=== PATIENT | male | born 1990 | race African-American/Black ===

== ENCOUNTER 2020-09-21 07:28 | Emergency (ER) | payer SELFPAY ==
[2020-09-21 07:58] VITALS: BP 149/64; PULSE 60; RESP 14; TEMP 36.9; O2SAT 100
--- NOTE | 2020-09-21 08:19 | ED.GENADULT ---
HPI - General Adult General Chief complaint: Dental/Oral Stated complaint: dental pain Time Seen by Provider: 09/21/20 08:00 Source: patient History of Present Illness HPI narrative: Patient is a a 30 y/o male complaining of right lower molar dental pain starting 3 days ago. He describes his pain as aching and rates it as 5/10. He took Tylenol, which helps with his pain. He has fever or chills. Related Data Allergies Allergy/AdvReac Type Severity Reaction Status Date / Time aspirin Allergy Unknown Verified 09/21/20 08:00 Review of Systems Constitutional: Constitutional: Denies chills, Denies fever(s), Denies headache(s) and Denies weakness Eyes: Eyes: Denies blurry vision ENT: Reports dental pain, Denies headache(s) and Denies neck pain Cardiovascular: Cardiovascular: Denies chest pain and Denies dyspnea Respiratory: Respiratory: Denies cough and Denies dyspnea Gastrointestinal: Gastrointestinal: Denies abdominal pain, Denies diarrhea, Denies nausea and Denies vomiting Genitourinary: Genitourinary: Denies hematuria and Denies dysuria Musculoskeletal: Musculoskeletal: Denies back pain and Denies neck pain Neurologic: Denies headache(s) and Denies weakness Exam Const: General: no acute distress and well developed Orientation/consciousness: oriented to person, oriented to place, oriented to time and patient oriented x3 HENMT: Head: normocephalic General nose exam: Normal external nose present Teeth and gingiva: other (tenderness right lower molar) Eyes: General: appearance normal, both eyes and all related structures Conjunctivae: conjunctivae normal Neck: Neck: normal visual inspection and full ROM Chest: Chest palpation & inspection: normal inspection of the chest and no tenderness Resp: Effort & Inspection: normal respiratory effort Neuro: General: oriented to person, oriented to place, oriented to time and patient oriented x3 Cognition (Neuro): normal cognition Extrem: General: normal to inspection, full ROM and no pedal edema Psych: Appearance: grossly normal Mental Status: mental status grossly normal Affect: normal affect Course Vital Signs Vital signs: Vital Signs Temperature 36.9 C 09/21/20 07:58 Pulse Rate 60 09/21/20 07:58 Respiratory Rate 14 09/21/20 07:58 Blood Pressure 149/64 H 09/21/20 07:58 Pulse Oximetry 100 09/21/20 07:58 Temperature 36.9 C 09/21/20 07:58 Pulse Rate 60 09/21/20 07:58 Respiratory Rate 14 09/21/20 07:58 Blood Pressure 149/64 H 09/21/20 07:58 Pulse Oximetry 100 09/21/20 07:58 Medical Decision Making Vital Signs Vital Signs: Vital Signs Temperature 36.9 C 09/21/20 07:58 Pulse Rate 60 09/21/20 07:58 Respiratory Rate 14 09/21/20 07:58 Blood Pressure 149/64 H 09/21/20 07:58 Pulse Oximetry 100 09/21/20 07:58 Temperature 36.9 C 09/21/20 07:58 Pulse Rate 60 09/21/20 07:58 Respiratory Rate 14 09/21/20 07:58 Blood Pressure 149/64 H 09/21/20 07:58 Pulse Oximetry 100 09/21/20 07:58 Discharge Plan Discharge Clinical Impression: Toothache Patient Disposition: Home, Self-Care Condition: Stable Instructions: Antibiotic Form, Toothache (ED) Prescriptions: New penicillin V potassium 500 mg tablet 500 mg PO TID Qty: 30 RF: 0 Follow-up/Referrals: PHYSICIAN,AUTOMOTIVE SALES SPECIALIST [Primary Care Provider] - Stand Alone Forms: Work/School Release IP
[2020-09-21 08:30] VITALS: BP 124/70; PULSE 64; RESP 12; O2SAT 99
== END 2020-09-21 08:30 | disposition home or self-care (01) ==
PROVIDERS: Emergency Provider Emergency Medicine
DX: K08.89 Other specified disorders of teeth and supporting structures (principal)
CPT/HCPCS: 99283

== ENCOUNTER 2025-01-04 15:52 | Emergency (ER) | payer SELFPAY ==
[2025-01-04 15:53] VITALS: BP 147/79; PULSE 87; RESP 14; TEMP 36.4; O2SAT 99
--- NOTE | 2025-01-04 17:36 | ED.ABDPAIN ---
HPI - Abdominal Pain General Chief Complaint: Abdominal Pain Stated Complaint: hernia Time Seen by Provider: 01/04/25 17:34 Source: patient and family Mode of arrival: ambulatory Limitations: no limitations History of Present Illness HPI narrative: 34 YEARS OLD MALE CAME TO THE ED COMPLAINING OF BARIUM PEDICLE PAIN, AND INTERMITTENT BULGING AT THE LEFT LOWER ABDOMEN FOR THE LAST 2-3 MONTHS. HE DENIES ANY FEVER, CHILLS, NAUSEA, VOMITING, DIARRHEA, CONSTIPATION OR HISTORY OF ABDOMINAL SURGERY. Related Data Allergies Allergy/AdvReac Type Severity Reaction Status Date / Time aspirin Allergy Unknown Verified 01/04/25 17:48 Review of Systems Review of Systems: All systems reviewed & are unremarkable except as noted in HPI and below Exam Narrative: GENERAL APPEARANCE: WELL-DEVELOPED, WELL-NOURISHED SKIN: NORMAL COLOR CHEST AND RESPIRATORY: AIRWAY PATENT, NO RESPIRATORY DISTRESS, NO ACCESSORY MUSCLE USE HEART: REGULAR RATE/RHYTHM ABDOMEN: SOFT, NONTENDER, NO ORGANOMEGALY, QUIET BOWEL SOUNDS VASCULAR: NORMAL PERIPHERAL PULSES, NORMAL CAPILLARY REFILL. MUSCULOSKELETAL: NORMAL RANGE OF MOTION, NONTENDER BACK NEUROLOGIC: ALERT AND ORIENTED ?3, CLIENT SERVICES DIRECTOR IS NORMAL TESTED, NO GROSS MOTOR DEFICIT Course Vital Signs Vital signs: Vital Signs Temperature 36.4 C 01/04/25 15:53 Pulse Rate 87 01/04/25 15:53 Respiratory Rate 14 01/04/25 15:53 Blood Pressure 147/79 H 01/04/25 15:53 Pulse Oximetry 99 01/04/25 15:53 Temperature 36.4 C 01/04/25 15:53 Pulse Rate 87 01/04/25 15:53 Respiratory Rate 14 01/04/25 15:53 Blood Pressure 147/79 H 01/04/25 15:53 Pulse Oximetry 99 01/04/25 15:53 MDM - Abdominal Pain [facility] Narrative Medical decision making narrative: PATIENT PRESENTS WITH PERIUMBILICAL PAIN VITAL SIGNS ARE STABLE PHYSICAL EXAMINATION IS UNREMARKABLE DIFFERENTIAL DIAGNOSIS INCLUDE UMBILICAL HERNIA, INGUINAL HERNIA, URINARY TRACT INFECTION, DIVERTICULITIS, COLITIS, APPENDICITIS, CHOLECYSTITIS BLOOD WORKUP TODAY INCLUDES CBC, CMP, LIPASE SHOWED NO SIGNIFICANT ABNORMALITY URINALYSIS SHOWED FINDING CONSISTENT WITH INFECTION CT ABDOMEN AND PELVIS WITH IV CONTRAST SHOWED NO ACUTE ABNORMALITIES. DIAGNOSIS URINARY TRACT INFECTION, DISCHARGED ON CIPRO. DISCHARGE THE PT WAS DISCHARGED TO HOME.THE PT,S CONDITION UPON DISCHARGE WAS FAIR,EDUCATION WAS PROVIDED TO THE PT IN REFERENCE TO THE FINAL IMPRESSION,DISCHARGE STUDY RESULTS,TREATMENT,PROGNOSIS AND NEED FOR FOLLOW UP . Differential Diagnosis Differential diagnosis: Likely other ( ABOVE) Lab Data 01/04/25 17:58 01/04/25 18:13 Labs: Lab Results 01/04/25 01/04/25 01/04/25 Range/Units 17:58 18:13 18:31 WBC 6.6 (4.5-10.0) K/mm3 RBC 4.96 (4.6-6.20) M/mm3 Hgb 16.0 (14.0-18.0) g/dL Hct 46.5 (42.0-52.0) % MCV 93.8 (80-100) fl MCH 32.3 (26-34) pg MCHC 34.4 (32-36) g/dl RDW 12.4 (11.5-14.5) % Plt Count 283 (150-375) k/mm3 MPV 8.9 (7.4-10.4) fl Immature Gran % (Auto) 0.2 (0-0.5) % Neut % (Auto) 38.5 L (45.5-73.1) % Lymph % (Auto) 49.7 H (18.3-44.2) % Meriwether % (Auto) 10.2 H (2.6-8.5) % Eos % (Auto) 0.6 (0-4.4) % Baso % (Auto) 0.8 (0.2-1.2) % Lymph # (Auto) 3.28 H (0.9-3.2) K/mm3 Meriwether # (Auto) 0.7 H (0.1-0.6) K/mm3 Eos # (Auto) 0.0 (0-0.3) K/mm3 Baso # (Auto) 0.1 (0.0-0.1) K/mm3 Abs Immat Gran (auto) 0.01 (0.00-0.031) K/mm3 Absolute Neuts (auto) 2.6 (1.3-6.7) K/mm3 Absolute Nucleated RBC 0.000 (0.0-0.012) K/mm3 Nucleated RBC % 0.0 (0.0-0.2) % Sodium 140 (137-145) mmol/L Potassium 4.2 (3.4-5.0) mmol/L Chloride 104 (98-107) mmol/L Carbon Dioxide 30 (22-30) mmol/L Anion Gap 6 (4-12) mmol/L BUN 11 (9-20) mg/dL Creatinine 0.95 1.10 (0.7-1.3) mg/dL Estim Creat Clear Calc 94 82 ml/min Estimated GFR > 60 > 60 (59 - ) Glucose 70 (65-110) mg/dL Calcium 9.0 (8.4-10.2) mg/dL Total Bilirubin 1.1 (0.2-1.3) mg/dL AST 25 (17-59) U/L ALT 17 (6-50) U/L Alkaline Phosphatase 70 (38-126) U/L Total Protein 7.0 (6.3-8.2) g/dL Albumin 4.4 (3.5-5.1) g/dL Lipase 127 (23-300) U/L Urine Color Yellow (Yellow) Urine Appearance Clear (Clear) Urine pH 6.5 (5.0-9.0) Ur Specific Tea 1.027 (1.001-1.035) Urine Protein Trace (Negative) mg/dL Urine Glucose (UA) Negative (Negative) mg/dL Urine Ketones Trace H (Negative) mg/dL Ur Blood (Man) Negative (Negative) Urine Nitrate Negative (Negative) Urine Bilirubin Negative (Negative) Urine Urobilinogen 1.0 (<2.0) mg/dL Leukocyte Esterase Rfl 1+ H (Negative) RERE/UL Urine RBC 0-2 (0-2) /hpf Urine WBC 21-50 H (0-3) /hpf Ur Squamous Epith Cells None seen (Few) /hpf Urine Bacteria None seen /hpf Urine Casts 0-2 Imaging Data Radiologist's impression: ITS Impressions Abdomen/Pelvis CT 01/04/25 18:57 IMPRESSION: 1. No evidence of appendicitis, diverticulitis or intestinal obstruction. Discharge Plan Discharge Clinical Impression: Urinary tract infection Patient Disposition: Home, Self-Care Condition: Stable Instructions: Antibiotic Form, Urinary Tract Infection in Men (DC) Additional Instructions: RETURN IF SYMPTOMS ARE WORSENING , CALL YOUR FAMILY PHYSICIAN FOR APPOINTMENT, TAKE TYLENOL NEEDED FOR ACHES AND PAIN, CONTINUE HOME MEDICATIONS. Patient Language: German Prescriptions: New ciprofloxacin HCl [Cipro] 500 mg tablet 500 mg PO Q12H Qty: 14 0RF No Action penicillin V potassium 500 mg tablet 500 mg PO TID Qty: 30 0RF Follow-up/Referrals: PHYSICIAN,SPECIAL EDUCATION PARA PROFESSIONAL [Primary Care Provider] - Galo Jang MD [Physician] - 01/08/25
[2025-01-04 18:10] LABS: Basophils Absolute Auto 0.1 K/mm3 (0.0-0.1); Basophils Percent Auto 0.8 % (0.2-1.2); Eosinophils Percent Auto 0.6 % (0-4.4); Hematocrit 46.5 % (42.0-52.0); Immature Granulocyte Absolute 0.01 K/mm3 (0.00-0.031); Immature Granulocyte Percent A 0.2 % (0-0.5); Lymphocytes Absolute Auto 3.28 K/mm3 (0.9-3.2); Lymphocytes Percent Auto 49.7 % (18.3-44.2); Mean Corpuscular HGB Conc 34.4 g/dl (32-36); Mean Corpuscular Hemoglobin 32.3 pg (26-34); Mean Corpuscular Volume 93.8 fl (80-100); Mean Platelet Volume 8.9 fl (7.4-10.4); Monocytes Absolute Auto 0.7 K/mm3 (0.1-0.6); Monocytes Percent Auto 10.2 % (2.6-8.5); Neutrophils Absolute Auto 2.6 K/mm3 (1.3-6.7); Neutrophils Percent Auto 38.5 % (45.5-73.1); Platelet Count Result 283 k/mm3 (150-375); Red Blood Count 4.96 M/mm3 (4.6-6.20); Red Cell Distribution Width 12.4 % (11.5-14.5); White Blood Count 6.6 K/mm3 (4.5-10.0)
[2025-01-04 18:22] LABS: Alanine Aminotransferase 17 U/L (6-50); Albumin Level 4.4 g/dL (3.5-5.1); Alkaline Phosphatase 70 U/L (38-126); Anion Gap 6 mmol/L (4-12); Aspartate Amino Transferase 25 U/L (17-59); Bilirubin,Total 1.1 mg/dL (0.2-1.3); Blood Urea Nitrogen 11 mg/dL (9-20); Carbon Dioxide 30 mmol/L (22-30); Chloride 104 mmol/L (98-107); Estimated CRCL calculation 94 ml/min; Estimated Glomerular Filt Rate > 60; Glucose 70 mg/dL (65-110); Lipase 127 U/L (23-300); Potassium 4.2 mmol/L (3.4-5.0); Sodium 140 mmol/L (137-145)
[2025-01-04 18:25] LABS: Estimated CRCL calculation 82 ml/min; Estimated Glomerular Filt Rate > 60
[2025-01-04 18:43] LABS: Add Urine Microscopic? YES; Appearance Urine Clear (Clear); Bacteria Urine None Seen /hpf; Bilirubin Urine Negative (Negative); Blood Urine Negative (Negative); Color Urine Yellow (Yellow); Glucose Urine UA Negative (Negative); Ketones Urine Trace mg/dL (Negative); Leukocyte Esterase Ur 1+ LEU/UL (Negative); Nitrate Urine Negative (Negative); Non Pathogenic Casts 0-2; Protein Urine Trace mg/dL (Negative); RBC Urine 0-2 /hpf (0-2); Specific Grav Ur 1.027 (1.001-1.035); Squamous Epithelial Cell Urine None Seen /hpf (Few); WBC Urine 21-50 /hpf (0-3); pH Urine 6.5 (5.0-9.0)
[2025-01-04 20:26] VITALS: BP 132/74; PULSE 84; RESP 15; TEMP 36.6; O2SAT 100
== END 2025-01-04 20:27 | disposition home or self-care (01) ==
PROVIDERS: Emergency Provider Emergency Medicine
DX: N39.0 Urinary tract infection, site not specified (principal)
CPT/HCPCS: 36415; 74177; 80053; 81001; 83690; 85025; 87086; 99284; Q9967

== ENCOUNTER 2025-04-11 15:52 | Emergency (ER) | payer SELFPAY ==
--- NOTE | ~2025-04-11 | CT_ITS ---
EXAMINATION: CT abdomen pelvis w con DATE: 04/11/2025 18:35 INDICATION: LLQ pain TECHNIQUE: Computed tomography (CT) of the abdomen and pelvis was performed with 100 mL Omnipaque-350 intravenous contrast. Automated exposure control and iterative reconstruction technique were employe d. The dose-length product was 283.20 mGy-cm. COMPARISON: 01/04/2025. FINDINGS: Lower thorax: Unremarkable Liver: Normal. Biliary/Gallbladder: Gallbladder is normal. No bile duct dilation. Pancreas: No mass or duct dilation. Spleen: Normal. Adrenals:No mass. Kidneys: No suspicious mass, obstructing stone, or hydronephrosis. GI tract: No small or large bowel dilation. Normal appendix. Mesentery/Peritoneum: No ascites, mass, or free air. Retroperitoneum: No mass. Pelvis: Pelvic organs are within normal limits. Soft Tissues: Small left femoral hernia with mild soft tissue thickening/stranding. Bones: No acute osseous finding. IMPRESSION: Mild soft tissue thickening/stranding associated with a small left inguinal hernia, correlate for rigo n/tenderness. Reviewed, dictated and finalized at location K. IMPRESSION: Mild soft tissue thickening/stranding associated with a small left inguinal her karen, correlate for pain/tenderness.
[2025-04-11 15:55] VITALS: BP 135/80; PULSE 96; RESP 16; TEMP 36.6; O2SAT 100
--- NOTE | 2025-04-11 16:12 | ED.ABDPAIN ---
HPI - Abdominal Pain General Chief Complaint: Abdominal Pain <Meera Bowen APRN - Last Filed: 04/11/25 16:13> Stated Complaint: abd pain, hernia <Meera Bowen APRN - Last Filed: 04/11/25 16:13> Time Seen by Provider: 04/11/25 15:55 <Meera Bowen APRN - Last Filed: 04/11/25 16:13> Focused HPI: Patient is a 35-year-old male who presents to the ER with left lower abdominal pain around a hernia site. He reports he was diagnosed with a left inguinal hernia in January of 2025. Patient reports over the last couple of days he has experienced increased pain at the site and it is difficult to push in. He reports the pain increases when he coughs or if he standing for long periods of time. Patient endorses a history of anxiety but denies any other relevant medical history. GENERAL: Well-appearing, well-nourished, and in no acute distress. HEAD: Normocephalic, atraumatic. CHEST: Clear to auscultation. ?No respiratory distress. HEART: Regular rate and rhythm.? NEURO: ?Alert and oriented x3. Patient screened in triage and initial orders placed.? ?Additional care and disposition to be based upon?diagnostic testing and treatment. <Meera Bowen APRN - Last Filed: 04/11/25 16:13> History of Present Illness HPI narrative: 35-year-old male presents to the emergency department for a hernia to his left inguinal region for the past couple of months. Patient states over the past few days he has noticed it has become slightly more tender and more difficult to reduce. This is what prompted him to come to the ED. He is also reporting some abdominal pain to the periumbilical region. Endorses nausea, denies vomiting or diarrhea. Denies obstipation or changes to bowels. Denies fever, testicular or scrotal pain. <Maritza Romano PA-C - Last Filed: 04/11/25 20:13> Related Data Allergies/Adverse Reactions: Allergies Allergy/AdvReac Type Severity Reaction Status Date / Time aspirin Allergy Unknown Verified 01/04/25 17:48 <Meera Bowen APRN - Last Filed: 04/11/25 16:13> Review of Systems Review of Systems: All systems reviewed & are unremarkable except as noted in HPI and below <Maritza Romano PA-C - Last Filed: 04/11/25 20:13> Exam Narrative: GENERAL: Well-appearing, well-nourished, and in no acute distress. HEAD: Normocephalic, atraumatic. EYES: EOMI. ENT: Nares clear, no rhinorrhea or epistaxis. Mucous membranes moist. NECK: Supple. CHEST: Clear to auscultation. No respiratory distress. HEART: Regular rate and rhythm. No murmur heard. Normal peripheral pulses. ABDOMEN: Soft, nontender, nondistended, normal active bowel sounds. Left inguinal hernia with no overlying skin changes, soft, easily reduced without significant tenderness EXTREMITIES: Normal range of motion. No edema. SKIN: Warm, dry, no rash. NEURO: No focal deficits. Alert and oriented x3 <Maritza Romano PA-C - Last Filed: 04/11/25 20:13> Course Vital Signs Vital signs: Vital Signs Temperature 97.8 F 04/11/25 15:55 Pulse Rate 96 04/11/25 15:55 Respiratory Rate 16 04/11/25 15:55 Blood Pressure 135/80 04/11/25 15:55 Pulse Oximetry 100 04/11/25 15:55 Oxygen Delivery Room Air 04/11/25 15:55 Temperature 98.0 F 04/11/25 19:28 Pulse Rate 76 04/11/25 19:28 Respiratory Rate 18 04/11/25 19:28 Blood Pressure 134/95 H 04/11/25 19:28 Pulse Oximetry 100 04/11/25 19:28 Oxygen Delivery Room Air 04/11/25 15:55 <Meera Bowen, STUDY MANAGER - Last Filed: 04/11/25 16:13> Vital Signs Temperature 97.8 F 04/11/25 15:55 Pulse Rate 96 04/11/25 15:55 Respiratory Rate 16 04/11/25 15:55 Blood Pressure 135/80 04/11/25 15:55 Pulse Oximetry 100 04/11/25 15:55 Oxygen Delivery Room Air 04/11/25 15:55 Temperature 98.0 F 04/11/25 19:28 Pulse Rate 76 04/11/25 19:28 Respiratory Rate 18 04/11/25 19:28 Blood Pressure 134/95 H 04/11/25 19:28 Pulse Oximetry 100 04/11/25 19:28 Oxygen Delivery Room Air 04/11/25 15:55 <Maritza Romano PA-C - Last Filed: 04/11/25 20:13> MDM - Abdominal Pain MDM Narrative Medical decision making narrative: 35-year-old male presents to the emergency department for a left inguinal hernia that has been present over the past couple months and worsening over the past few days. Patient endorsing some tenderness to the region and increased difficulty reducing hernia. Vitals are stable. Patient is afebrile nontoxic appearing and resting comfortably in exam bed. Exam is notable for a left inguinal hernia with no overlying skin changes, soft and nontender and easily reduced on exam. Lab work shows no leukocytosis or anemia. Chemistries are unremarkable. UA with elevated specific gravity, UTI. Lipase within normal limits. CT abdomen pelvis shows mild soft tissue thickening/straining associated with a small left inguinal hernia. Discussed results with General surgery on-call, Dr. Garrison, who agrees to outpatient follow-up. Patient updated on results and plan of care. Return precautions provided. He is agreeable with the plan verbalized understanding. Discharged in stable condition. <Maritza Romano PA-C - Last Filed: 04/11/25 20:13> Lab Data Result diagrams: 04/11/25 17:51 04/11/25 17:51 <Meera Bowen APRN - Last Filed: 04/11/25 16:13> Labs: Lab Results 04/11/25 04/11/25 Range/Units 17:51 19:50 WBC 6.9 (4.5-10.0) K/mm3 RBC 5.10 (4.6-6.20) M/mm3 Hgb 16.4 (14.0-18.0) g/dL Hct 48.0 (42.0-52.0) % MCV 94.1 (80-100) fl MCH 32.2 (26-34) pg MCHC 34.2 (32-36) g/dl RDW 11.9 (11.5-14.5) % Plt Count 272 (150-375) k/mm3 MPV 8.2 (7.4-10.4) fl Immature Gran % (Auto) 0.1 (0-0.5) % Neut % (Auto) 47.1 (45.5-73.1) % Lymph % (Auto) 42.2 (18.3-44.2) % Lipscomb % (Auto) 9.1 H (2.6-8.5) % Eos % (Auto) 0.6 (0-4.4) % Baso % (Auto) 0.9 (0.2-1.2) % Lymph # (Auto) 2.91 (0.9-3.2) K/mm3 Lipscomb # (Auto) 0.6 (0.1-0.6) K/mm3 Eos # (Auto) 0.0 (0-0.3) K/mm3 Baso # (Auto) 0.1 (0.0-0.1) K/mm3 Abs Immat Gran (auto) 0.01 (0.00-0.031) K/mm3 Absolute Neuts (auto) 3.3 (1.3-6.7) K/mm3 Absolute Nucleated RBC 0.000 (0.0-0.012) K/mm3 Nucleated RBC % 0.0 (0.0-0.2) % Sodium 138 (137-145) mmol/L Potassium 4.6 (3.4-5.0) mmol/L Chloride 105 (98-107) mmol/L Carbon Dioxide 28 (22-30) mmol/L Anion Gap 5 (4-12) mmol/L BUN 10 (9-20) mg/dL Creatinine 1.14 (0.7-1.3) mg/dL Estim Creat Clear Calc 76 ml/min Estimated GFR > 60 (59 - ) Glucose 79 (65-110) mg/dL Calcium 9.5 (8.4-10.2) mg/dL Total Bilirubin 0.7 (0.2-1.3) mg/dL AST 31 (17-59) U/L ALT 21 (6-50) U/L Alkaline Phosphatase 69 (38-126) U/L Total Protein 7.5 (6.3-8.2) g/dL Albumin 4.5 (3.5-5.1) g/dL Lipase 122 (23-300) U/L Urine Color Yellow (Yellow) Urine Appearance Clear (Clear) Urine pH 7.5 (5.0-9.0) Ur Specific Benson > 1.045 H (1.001-1.035) Urine Protein Negative (Negative) mg/dL Urine Glucose (UA) Negative (Negative) mg/dL Urine Ketones Negative (Negative) mg/dL Ur Blood (Man) Negative (Negative) Urine Nitrate Negative (Negative) Urine Bilirubin Negative (Negative) Urine Urobilinogen 1.0 (<2.0) mg/dL Leukocyte Esterase Rfl Negative (Negative) RERE/UL <Meera Bowen, STUDY MANAGER - Last Filed: 04/11/25 16:13> Lab Results 04/11/25 04/11/25 Range/Units 17:51 19:50 WBC 6.9 (4.5-10.0) K/mm3 RBC 5.10 (4.6-6.20) M/mm3 Hgb 16.4 (14.0-18.0) g/dL Hct 48.0 (42.0-52.0) % MCV 94.1 (80-100) fl MCH 32.2 (26-34) pg MCHC 34.2 (32-36) g/dl RDW 11.9 (11.5-14.5) % Plt Count 272 (150-375) k/mm3 MPV 8.2 (7.4-10.4) fl Immature Gran % (Auto) 0.1 (0-0.5) % Neut % (Auto) 47.1 (45.5-73.1) % Lymph % (Auto) 42.2 (18.3-44.2) % Lipscomb % (Auto) 9.1 H (2.6-8.5) % Eos % (Auto) 0.6 (0-4.4) % Baso % (Auto) 0.9 (0.2-1.2) % Lymph # (Auto) 2.91 (0.9-3.2) K/mm3 Lipscomb # (Auto) 0.6 (0.1-0.6) K/mm3 Eos # (Auto) 0.0 (0-0.3) K/mm3 Baso # (Auto) 0.1 (0.0-0.1) K/mm3 Abs Immat Gran (auto) 0.01 (0.00-0.031) K/mm3 Absolute Neuts (auto) 3.3 (1.3-6.7) K/mm3 Absolute Nucleated RBC 0.000 (0.0-0.012) K/mm3 Nucleated RBC % 0.0 (0.0-0.2) % Sodium 138 (137-145) mmol/L Potassium 4.6 (3.4-5.0) mmol/L Chloride 105 (98-107) mmol/L Carbon Dioxide 28 (22-30) mmol/L Anion Gap 5 (4-12) mmol/L BUN 10 (9-20) mg/dL Creatinine 1.14 (0.7-1.3) mg/dL Estim Creat Clear Calc 76 ml/min Estimated GFR > 60 (59 - ) Glucose 79 (65-110) mg/dL Calcium 9.5 (8.4-10.2) mg/dL Total Bilirubin 0.7 (0.2-1.3) mg/dL AST 31 (17-59) U/L ALT 21 (6-50) U/L Alkaline Phosphatase 69 (38-126) U/L Total Protein 7.5 (6.3-8.2) g/dL Albumin 4.5 (3.5-5.1) g/dL Lipase 122 (23-300) U/L Urine Color Yellow (Yellow) Urine Appearance Clear (Clear) Urine pH 7.5 (5.0-9.0) Ur Specific Benson > 1.045 H (1.001-1.035) Urine Protein Negative (Negative) mg/dL Urine Glucose (UA) Negative (Negative) mg/dL Urine Ketones Negative (Negative) mg/dL Ur Blood (Man) Negative (Negative) Urine Nitrate Negative (Negative) Urine Bilirubin Negative (Negative) Urine Urobilinogen 1.0 (<2.0) mg/dL Leukocyte Esterase Rfl Negative (Negative) RERE/UL <Maritza Romano PA-C - Last Filed: 04/11/25 20:13> Imaging Data Radiologist's impression: ITS Impressions Abdomen/Pelvis CT 04/11/25 18:48 IMPRESSION: Mild soft tissue thickening/stranding associated with a small left inguinal hernia, correlate for pain/tenderness. <Meera Bowen APRN - Last Filed: 04/11/25 16:13> ITS Impressions Abdomen/Pelvis CT 04/11/25 18:48 IMPRESSION: Mild soft tissue thickening/stranding associated with a small left inguinal hernia, correlate for pain/tenderness. <Maritza Romano PA-C - Last Filed: 04/11/25 20:13> Discharge Plan Discharge Clinical Impression: Inguinal hernia Qualifiers: Obstruction and gangrene presence: with obstruction but without gangrene Laterality: unilateral Recurrence: not specified as recurrent Qualified Code(s): K40.30 - Unilateral inguinal hernia, with obstruction, without gangrene, not specified as recurrent <Meera Bowen APRN - Last Filed: 04/11/25 16:13> Patient Disposition: Home <Meera Bowen APRN - Last Filed: 04/11/25 16:13> Condition: Stable <Meera Bowen APRN - Last Filed: 04/11/25 16:13> Instructions: Antibiotic Form, Inguinal Hernia (ED) <Meera Bowen APRN - Last Filed: 04/11/25 16:13> Additional Instructions: You were evaluated in the emergency department for a anemia. Your exam is reassuring. Please follow-up with the general surgeon I have referred you to. Take tylenol as needed for discomfort. Return to the emergency department if you develop a fever, pain to her hernia, you are unable to reduce her hernia, bowel changes or other concerning symptoms. <Meera Bowen APRN - Last Filed: 04/11/25 16:13> Patient Language: Belgian <Meera Bowen APRN - Last Filed: 04/11/25 16:13> Prescriptions: New acetaminophen 500 mg capsule 500 mg PO Q6H PRN (Reason: pain) Qty: 14 0RF No Action penicillin V potassium 500 mg tablet 500 mg PO TID Qty: 30 0RF ciprofloxacin HCl [Cipro] 500 mg tablet 500 mg PO Q12H Qty: 14 0RF <Meera Bowen APRN - Last Filed: 04/11/25 16:13> Follow-up/Referrals: Gale Garrison MD [Physician] - PHYSICIAN,RENEWALS MANAGER [Primary Care Provider] - <Meera Bowen APRN - Last Filed: 04/11/25 16:13>
[2025-04-11 17:56] LABS: Basophils Absolute Auto 0.1 K/mm3 (0.0-0.1); Basophils Percent Auto 0.9 % (0.2-1.2); Eosinophils Percent Auto 0.6 % (0-4.4); Hemoglobin 16.4 g/dL (14.0-18.0); Immature Granulocyte Absolute 0.01 K/mm3 (0.00-0.031); Immature Granulocyte Percent A 0.1 % (0-0.5); Lymphocytes Absolute Auto 2.91 K/mm3 (0.9-3.2); Lymphocytes Percent Auto 42.2 % (18.3-44.2); Mean Corpuscular HGB Conc 34.2 g/dl (32-36); Mean Corpuscular Hemoglobin 32.2 pg (26-34); Mean Corpuscular Volume 94.1 fl (80-100); Mean Platelet Volume 8.2 fl (7.4-10.4); Monocytes Absolute Auto 0.6 K/mm3 (0.1-0.6); Monocytes Percent Auto 9.1 % (2.6-8.5); Neutrophils Absolute Auto 3.3 K/mm3 (1.3-6.7); Neutrophils Percent Auto 47.1 % (45.5-73.1); Platelet Count Result 272 k/mm3 (150-375); Red Cell Distribution Width 11.9 % (11.5-14.5); White Blood Count 6.9 K/mm3 (4.5-10.0)
[2025-04-11 18:05] LABS: Alanine Aminotransferase 21 U/L (6-50); Albumin Level 4.5 g/dL (3.5-5.1); Alkaline Phosphatase 69 U/L (38-126); Anion Gap 5 mmol/L (4-12); Aspartate Amino Transferase 31 U/L (17-59); Bilirubin,Total 0.7 mg/dL (0.2-1.3); Blood Urea Nitrogen 10 mg/dL (9-20); Calcium 9.5 mg/dL (8.4-10.2); Carbon Dioxide 28 mmol/L (22-30); Chloride 105 mmol/L (98-107); Estimated CRCL calculation 76 ml/min; Estimated Glomerular Filt Rate > 60; Glucose 79 mg/dL (65-110); Lipase 122 U/L (23-300); Potassium 4.6 mmol/L (3.4-5.0); Sodium 138 mmol/L (137-145); Total Protein 7.5 g/dL (6.3-8.2)
[2025-04-11 18:18] VITALS: BP 131/89; PULSE 80; RESP 16; TEMP 36.4; O2SAT 100
[2025-04-11 19:28] VITALS: BP 134/95; PULSE 76; RESP 18; TEMP 36.7; O2SAT 100
[2025-04-11 19:57] LABS: Add Urine Microscopic? NO; Appearance Urine Clear (Clear); Bilirubin Urine Negative (Negative); Blood Urine Negative (Negative); Color Urine Yellow (Yellow); Glucose Urine UA Negative (Negative); Ketones Urine Negative (Negative); Leukocyte Esterase Ur Negative LEU/UL (Negative); Nitrate Urine Negative (Negative); Protein Urine Negative (Negative); Specific Grav Ur > 1.045 (1.001-1.035); pH Urine 7.5 (5.0-9.0)
== END 2025-04-11 20:36 | disposition home or self-care (01) ==
PROVIDERS: Registered Nurse; Emergency Provider Physician Assistant
DX: K40.30 Unilateral inguinal hernia, with obstruction, without gangrene, not specified as recurrent (principal)
CPT/HCPCS: 36415; 74177; 80053; 81003; 83690; 85025; 99284; Q9967

== ENCOUNTER 2025-08-11 10:47 | Emergency (ER) | payer MEDICAID, SELFPAY ==
--- NOTE | ~2025-08-11 | CT_ITS ---
Darrick Hidalgo EXAMINATION: CT abdomen pelvis w con COMPARISON: None HISTORY: hernia, TECHNIQUE: Axial images were obtained through the abdomen, pelvis post administration of IV contrast. Oral contrast was also administered. Coronal reconstruction images were obtained from the axial views. CT scan performed using dose optimization techniques including the following automated exposure control; adjustment of mA and/or kV; use of iterative reconstruction technique. Automatic exposure control was used to reduce radiation dose. Permanent radiation dose record is archived to PACS. FINDINGS: CT abdomen: LUNG BASES: The lung bases are clear. The visualized portions of the heart and pericardium are unremarkable. LIVER: Unremarkable, liver contours intact, no lesions. SPLEEN: Unremarkable. KIDNEYS: Right Kidney: Unremarkable. No calculi. No hydronephrosis. Left Kidney: Unremarkable. No calculi. No hydronephrosis ADRENAL GLANDS: Unremarkable. PANCREAS: Unremarkable. GALLBLADDER/BILIARY: Unremarkable. No biliary dilatation. STOMACH AND ESOPHAGUS: Visualized stomach and esophagus within normal limits. BOWEL/MESENTERY: Moderate fecal content, no colitis or diverticulitis. Appendix normal. Mesentery normal. Small bowel normal. There are no dilated bowel loops. ADENOPATHY/RETROPERITONEUM: No lymphadenopathy. AORTA/VASCULATURE: Normal caliber aorta. FREE FLUID OR FREE AIR: None. CT pelvis: SOLID ORGANS/REPRODUCTIVE: There is a small simple appearing left hydrocele. BLADDER: Within normal limits. OSSEOUS STRUCTURES: No acute osseous abnormality.No suspicious lesions. OVERLYING SOFT TISSUES: There is a large left inguinal hernia containing bowel. IMPRESSION: 1. Large left lower quadrant inguinal hernia, correlate for pain. No evidence of bowel obstruction. 2. Incidental findings above Reviewed, dictated and finalized at location P. IMPRESSION: 1. Large left lower quadrant inguinal hernia, correlate for pain. No evidence o f bowel obstruction. 2. Incidental findings above
[2025-08-11 11:02] VITALS: BP 138/81; PULSE 95; RESP 18; TEMP 36.8; O2SAT 100
--- NOTE | 2025-08-11 13:53 | ED.ABDPAIN ---
HPI - Abdominal Pain General Chief Complaint: Abdominal Pain <Paddy Renae APRN - Last Filed: 08/11/25 13:53> Stated Complaint: abd pain <Paddy Renae APRN - Last Filed: 08/11/25 13:53> Time Seen by Provider: 08/11/25 17:08 <Paddy Renae APRN - Last Filed: 08/11/25 13:53> Focused HPI: 35-year-old male with known history of left inguinal hernia presents to the ER with worsening pain. Patient states he is able to reduce the hernia but causes him pain. Reports constipation. Denies fevers. GENERAL: Well-appearing, well-nourished, and in no acute distress. HEAD: Normocephalic, atraumatic. CHEST: Clear to auscultation. No respiratory distress. HEART: Regular rate and rhythm. NEURO: Alert and oriented x3. Patient screened in triage and initial orders placed. Additional care and disposition to be based upon diagnostic testing and treatment. <Paddy Renae APRN - Last Filed: 08/11/25 13:53> Related Data Allergies/Adverse Reactions: Allergies Allergy/AdvReac Type Severity Reaction Status Date / Time aspirin Allergy Unknown Verified 08/11/25 17:25 <Paddy Renae APRN - Last Filed: 08/11/25 13:53> Review of Systems Review of Systems: All systems reviewed & are unremarkable except as noted in HPI and below <Juana Gonsalez PA-C - Last Filed: 08/11/25 19:09> Exam Narrative: GENERAL: Well-appearing, well-nourished, and in no acute distress. HEAD: Normocephalic, atraumatic. EYES: EOMI. CHEST: Clear to auscultation. No respiratory distress. No wheezes rales or rhonchi HEART: Regular rate and rhythm. No murmur heard. Normal peripheral pulses. ABDOMEN: Soft, nontender, nondistended, normal active bowel sounds. Left inguinal hernia easily reduced EXTREMITIES: Normal range of motion. No edema. SKIN: Warm, dry, no rash. NEURO: No focal deficits. Alert and oriented x3. PSYCH: Normal mood and affect <Juana Gonsalez PA-C - Last Filed: 08/11/25 19:09> Course Course Emergency Course: patient updated on his workup and agrees with plan of care <Juana Gonsalez PA-C - Last Filed: 08/11/25 19:09> Consultations Consultation #1: Spoke with Dr. Garrison about patient and workup. Patient is to call in the morning to make an appointment. Will be able to get him in to be seen this week <Juana Gonsalez PA-C - Last Filed: 08/11/25 19:09> Date: 08/11/25 <Juana Gonsalez PA-C - Last Filed: 08/11/25 19:09> Vital Signs Vital signs: Vital Signs Temperature 98.2 F 08/11/25 11:02 Pulse Rate 95 08/11/25 11:02 Respiratory Rate 18 08/11/25 11:02 Blood Pressure 138/81 08/11/25 11:02 Pulse Oximetry 100 08/11/25 11:02 Temperature 98.2 F 08/11/25 16:00 Pulse Rate 69 08/11/25 17:55 Respiratory Rate 18 08/11/25 17:55 Blood Pressure 136/76 08/11/25 17:55 Pulse Oximetry 100 08/11/25 17:55 Oxygen Delivery Room Air 08/11/25 17:23 <Paddy Renae, GUEST SERVICES AGENT - Last Filed: 08/11/25 13:53> Vital Signs Temperature 98.2 F 08/11/25 11:02 Pulse Rate 95 08/11/25 11:02 Respiratory Rate 18 08/11/25 11:02 Blood Pressure 138/81 08/11/25 11:02 Pulse Oximetry 100 08/11/25 11:02 Temperature 98.2 F 08/11/25 16:00 Pulse Rate 69 08/11/25 17:55 Respiratory Rate 18 08/11/25 17:55 Blood Pressure 136/76 08/11/25 17:55 Pulse Oximetry 100 08/11/25 17:55 Oxygen Delivery Room Air 08/11/25 17:23 <Juana Gonsalez PA-C - Last Filed: 08/11/25 19:09> MDM - Abdominal Pain MDM Narrative Medical decision making narrative: Patient presents to the ER for left inguinal hernia. Ongoing over the last 6 months. Reports worsening discomfort in the area over the last couple of weeks. Patient is afebrile and nontoxic appearing. Vitals are stable. Cbc without leukocytosis. Metabolic panel without concerning findings. Lactic is not elevated. CT abdomen and pelvis showing large left inguinal hernia. No evidence of obstruction. Hernia is able to be reduced. Instructed on follow up with general surgery for further care. He was given warnings to return to the ER <Juana Gonsalez PA-C - Last Filed: 08/11/25 19:09> Differential Diagnosis Differential diagnosis: Likely abdominal pain, constipation, diverticulitis, small bowel obstruction and other (inguinal hernia, incarcerated hernia) <Juana Gonsalez PA-C - Last Filed: 08/11/25 19:09> Lab Data Attestation: I reviewed the patient's lab results. <Juana Gonsalez PA-C - Last Filed: 08/11/25 19:09> Result diagrams: 08/11/25 13:52 08/11/25 13:52 <Paddy Renae APRN - Last Filed: 08/11/25 13:53> Labs: Lab Results 08/11/25 Range/Units 13:52 WBC 5.6 (4.5-10.0) K/mm3 RBC 4.84 (4.6-6.20) M/mm3 Hgb 15.6 (14.0-18.0) g/dL Hct 44.3 (42.0-52.0) % MCV 91.5 (80-100) fl MCH 32.2 (26-34) pg MCHC 35.2 (32-36) g/dl RDW 12.1 (11.5-14.5) % Plt Count 259 (150-375) k/mm3 MPV 8.3 (7.4-10.4) fl Immature Gran % (Auto) 0.4 (0-0.5) % Neut % (Auto) 33.1 L (45.5-73.1) % Lymph % (Auto) 55.5 H (18.3-44.2) % [place] % (Auto) 9.6 H (2.6-8.5) % Eos % (Auto) 0.5 (0-4.4) % Baso % (Auto) 0.9 (0.2-1.2) % Lymph # (Auto) 3.11 (0.9-3.2) K/mm3 [place] # (Auto) 0.5 (0.1-0.6) K/mm3 Eos # (Auto) 0.0 (0-0.3) K/mm3 Baso # (Auto) 0.1 (0.0-0.1) K/mm3 Abs Immat Gran (auto) 0.02 (0.00-0.031) K/mm3 Absolute Neuts (auto) 1.9 (1.3-6.7) K/mm3 Absolute Nucleated RBC 0.000 (0.0-0.012) K/mm3 Nucleated RBC % 0.0 (0.0-0.2) % Sodium 138 (137-145) mmol/L Potassium 4.3 (3.4-5.0) mmol/L Chloride 104 (98-107) mmol/L Carbon Dioxide 28 (22-30) mmol/L Anion Gap 6 (4-12) mmol/L BUN 13 (9-20) mg/dL Creatinine 1.00 (0.7-1.3) mg/dL Estim Creat Clear Calc 83 ml/min Estimated GFR > 60 (59 - ) Glucose 77 (65-110) mg/dL Lactic Acid 0.8 (0.7-2.0) mmol/L Calcium 8.8 (8.4-10.2) mg/dL Total Bilirubin 0.7 (0.2-1.3) mg/dL AST 24 (17-59) U/L ALT 17 (6-50) U/L Alkaline Phosphatase 64 (38-126) U/L Total Protein 7.1 (6.3-8.2) g/dL Albumin 4.2 (3.5-5.1) g/dL <Paddy Renae, GUEST SERVICES AGENT - Last Filed: 08/11/25 13:53> Lab Results 08/11/25 Range/Units 13:52 WBC 5.6 (4.5-10.0) K/mm3 RBC 4.84 (4.6-6.20) M/mm3 Hgb 15.6 (14.0-18.0) g/dL Hct 44.3 (42.0-52.0) % MCV 91.5 (80-100) fl MCH 32.2 (26-34) pg MCHC 35.2 (32-36) g/dl RDW 12.1 (11.5-14.5) % Plt Count 259 (150-375) k/mm3 MPV 8.3 (7.4-10.4) fl Immature Gran % (Auto) 0.4 (0-0.5) % Neut % (Auto) 33.1 L (45.5-73.1) % Lymph % (Auto) 55.5 H (18.3-44.2) % [place] % (Auto) 9.6 H (2.6-8.5) % Eos % (Auto) 0.5 (0-4.4) % Baso % (Auto) 0.9 (0.2-1.2) % Lymph # (Auto) 3.11 (0.9-3.2) K/mm3 [place] # (Auto) 0.5 (0.1-0.6) K/mm3 Eos # (Auto) 0.0 (0-0.3) K/mm3 Baso # (Auto) 0.1 (0.0-0.1) K/mm3 Abs Immat Gran (auto) 0.02 (0.00-0.031) K/mm3 Absolute Neuts (auto) 1.9 (1.3-6.7) K/mm3 Absolute Nucleated RBC 0.000 (0.0-0.012) K/mm3 Nucleated RBC % 0.0 (0.0-0.2) % Sodium 138 (137-145) mmol/L Potassium 4.3 (3.4-5.0) mmol/L Chloride 104 (98-107) mmol/L Carbon Dioxide 28 (22-30) mmol/L Anion Gap 6 (4-12) mmol/L BUN 13 (9-20) mg/dL Creatinine 1.00 (0.7-1.3) mg/dL Estim Creat Clear Calc 83 ml/min Estimated GFR > 60 (59 - ) Glucose 77 (65-110) mg/dL Lactic Acid 0.8 (0.7-2.0) mmol/L Calcium 8.8 (8.4-10.2) mg/dL Total Bilirubin 0.7 (0.2-1.3) mg/dL AST 24 (17-59) U/L ALT 17 (6-50) U/L Alkaline Phosphatase 64 (38-126) U/L Total Protein 7.1 (6.3-8.2) g/dL Albumin 4.2 (3.5-5.1) g/dL <Juana Gonsalez PA-C - Last Filed: 08/11/25 19:09> Imaging Data Radiologist's impression: ITS Impressions Abdomen/Pelvis CT 08/11/25 14:07 IMPRESSION: 1. Large left lower quadrant inguinal hernia, correlate for pain. No evidence of bowel obstruction. 2. Incidental findings above <Paddy Renae APRN - Last Filed: 08/11/25 13:53> ITS Impressions Abdomen/Pelvis CT 08/11/25 14:07 IMPRESSION: 1. Large left lower quadrant inguinal hernia, correlate for pain. No evidence of bowel obstruction. 2. Incidental findings above <Juana Gonsalez PA-C - Last Filed: 08/11/25 19:09> Critical Care Time Critical Care Time Critical Care Time: No <Juana Gonsalez PA-C - Last Filed: 08/11/25 19:09> Discharge Plan Discharge Clinical Impression: Inguinal hernia Qualifiers: Obstruction and gangrene presence: without obstruction or gangrene Laterality: unilateral Recurrence: not specified as recurrent Qualified Code(s): K40.90 - Unilateral inguinal hernia, without obstruction or gangrene, not specified as recurrent <Paddy Renae APRN - Last Filed: 08/11/25 13:53> Patient Disposition: Home <Paddy Renae APRN - Last Filed: 08/11/25 13:53> Condition: Stable <Paddy Renae APRN - Last Filed: 08/11/25 13:53> Instructions: Inguinal Hernia (ED) <Paddy Renae APRN - Last Filed: 08/11/25 13:53> Additional Instructions: Return to the ER if you experience fever, abdominal pain with nausea and vomiting, you are unable to keep down liquids or solids, or any other symptoms that are concerning to you Avoid heavy lifting Follow up with general surgery (Dr. Garrison). Call in the morning to make an appointment <Paddy Renae APRN - Last Filed: 08/11/25 13:53> Patient Language: Lebanese <Paddy Renae APRN - Last Filed: 08/11/25 13:53> Prescriptions: No Action penicillin V potassium 500 mg tablet 500 mg PO TID Qty: 30 0RF ciprofloxacin HCl [Cipro] 500 mg tablet 500 mg PO Q12H Qty: 14 0RF acetaminophen 500 mg capsule 500 mg PO Q6H PRN (Reason: pain) Qty: 14 0RF <Paddy Renae APRN - Last Filed: 08/11/25 13:53> Follow-up/Referrals: Gale Garrison MD [Physician, General Surgery] PHYSICIAN,LIAISON PLANNER [Primary Care Provider, Internal Medicine] <Paddy Renae APRN - Last Filed: 08/11/25 13:53> Stand Alone Forms: Work/School Release IP <Paddy Renae APRN - Last Filed: 08/11/25 13:53>
[2025-08-11 13:59] LABS: Hematocrit 44.3 % (42.0-52.0); Hemoglobin 15.6 g/dL (14.0-18.0); Immature Granulocyte Percent A 0.4 % (0-0.5); Lymphocytes Absolute Auto 3.11 K/mm3 (0.9-3.2); Mean Corpuscular HGB Conc 35.2 g/dl (32-36); Mean Corpuscular Hemoglobin 32.2 pg (26-34); Mean Corpuscular Volume 91.5 fl (80-100); Nucleated Red Blood Cells Absolute Auto 0.000 K/mm3 (0.0-0.012); Nucleated Red Blood Cells Perc 0.0 % (0.0-0.2); Platelet Count Result 259 k/mm3 (150-375); Red Blood Count 4.84 M/mm3 (4.6-6.20); White Blood Count 5.6 K/mm3 (4.5-10.0)
[2025-08-11 14:23] LABS: Alanine Aminotransferase 17 U/L (6-50); Albumin Level 4.2 g/dL (3.5-5.1); Alkaline Phosphatase 64 U/L (38-126); Anion Gap 6 mmol/L (4-12); Aspartate Amino Transferase 24 U/L (17-59); Bilirubin,Total 0.7 mg/dL (0.2-1.3); Blood Urea Nitrogen 13 mg/dL (9-20); Calcium 8.8 mg/dL (8.4-10.2); Carbon Dioxide 28 mmol/L (22-30); Chloride 104 mmol/L (98-107); Estimated CRCL calculation 83 ml/min; Estimated Glomerular Filt Rate > 60; Glucose 77 mg/dL (65-110); Potassium 4.3 mmol/L (3.4-5.0); Sodium 138 mmol/L (137-145); Total Protein 7.1 g/dL (6.3-8.2)
[2025-08-11 16:00] VITALS: BP 155/97; PULSE 67; RESP 18; TEMP 36.8; O2SAT 100
[2025-08-11 17:23] VITALS: BP 136/83; PULSE 72; RESP 18; O2SAT 100
[2025-08-11] MEDS: MORPHINE SULFATE (*CRX) 4 MG/ML INJ IV PUSH (17:48)
[2025-08-11] MEDS: ONDANSETRON INJ 4 MG/2 ML VIAL IV PUSH (17:48)
[2025-08-11 17:55] VITALS: BP 136/76; PULSE 69; RESP 18; O2SAT 100
[2025-08-11 19:21] VITALS: BP 138/85; PULSE 64; RESP 16; O2SAT 100
[2025-08-15 14:38] LABS: Estimated CRCL calculation 76 ml/min; Estimated Glomerular Filt Rate > 60
== END 2025-08-11 19:18 | disposition home or self-care (01) ==
PROVIDERS: Nurse Practitioner Family; Emergency Provider Physician Assistant
DX: K40.90 Unilateral inguinal hernia, without obstruction or gangrene, not specified as recurrent (principal)
CPT/HCPCS: 36415; 74177; 80053; 82565; 83605; 85025; 96374; 96375; 99284; J2270; J2405; Q9967

== ENCOUNTER 2025-08-28 02:14 | Day surgery (SDC) | payer SELFPAY ==
[2025-08-27 08:36] VITALS: BMI 24.2
--- NOTE | 2025-08-27 08:45 | PC.NURSE ---
[facility] has started construction of its new state of the art ER which will open Spring 2026. With this, we anticipate parking may be a challenge for some our surgical patients and families. Parking spaces are limited but are available for all Surgical, obstetrics, and ER patients sharing this lot. If you arrive and find you are having a hard time finding a parking space, please note that we understand the challenges, please drive around the hospital and park near Hospital Entrance 1. When you enter this entrance, you can ask a volunteer to direct or take you back to the surgical waiting area to check in. We appreciate everyone?s understanding of these expected challenges while we build for your future. Report to the Outpatient Waiting Room, entrance under the green pavilion located off [address], at time _1230_ on date _[id number]_. Planned Procedure Time: _230pm_.? Time changes happen often and if your time is changed the preop area will call you the afternoon before. - You and your visitor will be asked to self-screen and do not enter if you have any COVID symptoms. Please call surgeon if you need to reschedule. - A mask is optional within the hospital at this time. Patients may have clear liquids (water, carbonated beverages, clear teas, apple juice) until 3 hours prior to surgery with a maximum of 20 ounces. - No food from midnight until time of surgery and no smoking, or chewing tobacco (or any form of nicotine). No chewing gum, candy or mints. Take only the following medications with a SIP of water on the morning of surgery: __None__ DO NOT STOP ANY OF YOUR OTHER PRESCRIPTION MEDICATIONS PRIOR TO SURGERY EXCEPT THE FOLLOWING Hold all vitamins and supplements for 3 days per anesthesiologist. Medications to discontinue per physician Date to take last dose Please no make-up, nail guinean, hairspray, perfume, deodorant, or body powder the day of surgery.? No jewelry (including any body piercings) or valuables the day of surgery, leave them at home.? Please take a shower or bath the night before, or the morning of, surgery with an antibacterial soap.? Wear comfortable, loose fitting clothing.? - Jewelry must be removed prior to entering the operating room.? Rings and piercings that are not removed may be cut off. - The hospital will not accept responsibility for valuables.? - Please leave all valuables, including medications, at home the day of surgery. If you are going home after surgery, a licensed transportation driver must drive you home.? - NO public transportation without another adult if you receive anesthesia. - We recommend that an adult stay with you for 24 hours following discharge. - We also recommend that you do not drive, make important decision, drink alcoholic beverages, or take any drugs that were not prescribed by your health care provider for at least 24 hours after your discharge time. Follow any additional instructions given to you from your surgeon. Telephone instructions given to __Darrick__and asked if any additional questions and then verbalized understanding. Patient advised to call surgeon office or pre surgery nurse liaison [phone] if any additional questions.
[2025-08-28] VITALS (12 sets, daily range): BP systolic 127–164; BP diastolic 74–89; PULSE 71–92; RESP 10–16; TEMP 36.6–36.8; O2SAT 94–100
--- NOTE | 2025-08-28 07:39 | WPDHPUPDATE1 ---
History and Physical Update Update Date/Time: 08/28/25 07:39 History and Physical has been reviewed, including an updated exam of the patient. There are NO changes in the patient's condition. Risks, benefits, and alternatives have been discussed and questions answered. Patient agrees to proceed with procedure.
[2025-08-28] MEDS: ACETAMINOPHEN 500 MG TABLET 1000 MG PO (10:40)
[2025-08-28] MEDS: KETOROLAC 15 MG/ML VIAL (*BKC) IV PUSH (10:45)
[2025-08-28] MEDS: LACTATED RINGERS 1,000 ML 30 ML IV CONT ×2 (10:45→14:58)
--- NOTE | 2025-08-28 12:08 | P.PNAN_ITS ---
Anes - Initial Pre Proc Eval Procedure: Operation Date: 08/28/25 12:00 Proposed Procedures p Robotic Bilateral Inguinal Hernia Repair with Mesh - Gale Garrison MD Date/Time: 08/28/25 12:08 Surgeon: Gale Garrison MD Pre Op Diagnosis: bilat inguinal hernia Patient Data Age: 35 Gender: M Height: 1.73 m Weight: 71 kg Last Vital Signs Temp 98.3 F 08/28/25 10:10 Pulse 91 08/28/25 10:10 Resp 16 08/28/25 10:10 BP 144/88 H 08/28/25 10:10 Pulse Ox 99 08/28/25 10:10 O2 Del Method Room Air 08/28/25 10:10 Allergies Allergy/AdvReac Type Severity Reaction Status Date / Time aspirin Allergy Unknown Verified 08/28/25 11:14 Home Medications ?Medication ?Instructions ?Recorded ?Confirmed ?Type No Home Medications 08/26/25 08/27/25 H istory Laboratory Tests 08/28/25 10:54 Blood Type B Positive Antibody Screen Negative Patient hx anesthesia problems: none Family hx anesthesia problems: none Results Review: All pre-operative results and documents have been reviewed as part of the pre- operative evaluation. PMFSH Past Medical History Medical History Hx of anxiety disorder Social History Social History Smoking status: Former smoker Tobacco type: cigars Smoking end date: 08/27/24 Additional smoking assessment comments: Black and milds one a day. Alcohol intake: never Substance use: never Substance use type: marijuana Other substance usage details: Medical card for rene sweets. Living arrangements: with family Occupation/Education: occupation Additional occupation/education comments: [employer] Spiritual care concerns: No Anes - Eval Final PreProcedure Day of Procedure 08/28/25 12:08 Patient weight: normal Lungs: normal air movement Airway: Mallampati scale class II Neurological: alert and oriented Last oral intake: >/= 8 hours ASA classification: II Emergent: no Anesthetic plan: proceed Anesthesia type and monitoring: general ETT and standard monitoring Results Review: All pre-operative results and documents have been reviewed as part of the pre- operative evaluation. Pt very active, no cp or sob, smokes cannabis daily for anxiety. Informed Consent: The patient's anesthetic plan and its attendant risks and benefits were discussed with the patient/family/POA. Questions were solicited and answers provided to the satisfaction of the patient/family/POA.
[2025-08-28] MEDS: ceFAZolin 2 GM in SODIUM CHLORIDE 0.9% IV 50 ML 100 ML IVPB (12:57)
[2025-08-28] MEDS: BUPIVACAINE/EPINEPHRINE 0.5% 50 ML VIAL 30 ML INFILTRATE (13:46)
--- NOTE | 2025-08-28 14:46 | P.OP_ITS ---
Procedure Note - Detailed Date of Procedure 08/28/25 Pre-op Diagnosis bilateral inguinal hernia Post-op Diagnosis Same Procedure Performed robotic assisted bilateral inguinal hernia repair with mesh Surgeon Gale Garrison MD Latin Professor Sears Anesthesia General Indications 35-year-old male presenting to the office with bilateral inguinal hernia. The patient reports the left side has been bigger and much more symptomatic. The right side was found incidentally on exam. Findings Large left indirect inguinal hernia, small right indirect inguinal hernia Description of Procedure Patient was brought into the operating room and placed in the supine position. After adequate induction of general anesthesia, the patient was prepped and draped in normal sterile fashion. A time-out was then done to verify the patient's identity, as well as the procedure being performed. I began by making a 8 mm incision in the supraumbilical region, a Veress needle was then placed into the peritoneal cavity. CO2 gas was then insufflated and after adequate pneumoperitoneum was achieved, the Veress needle was removed. I then placed an 8 mm trocar through this incision. I then placed the endoscope through this trocar site and under direct visualization placed 2 further 8 mm ports in the right and left mid abdomen. The [employer]i robot was then docked to the 3 trocar sites. I then scrubbed out and went to the robotic console. Upon examining the pelvis, it was noted that the patient had a small right inguinal hernia. The left side was examined and a large hernia defect was noted. I began by making a preperitoneal flap approximately 6 cm superior to the right sided defect. This flap was carried medially past the umbilical ligaments and laterally to the transversalis. It then began dissection of my medial compartment taking this down to the pubic tubercle. I then began the lateral dissection taking this down to the transversalis fascia. Once these compartments were achieved, I began dissection around the cord structures. A small indirect hernia was noted at this point. Using careful dissection, was able to reduce indirect hernia sac off the cord structures. Once this was adequately done, I went ahead and placed a large piece of 3D Max mesh into the abdominal cavity. The mesh was carefully positioned, centering the center of the mesh over the indirect defect. Once this was done, I was very satisfied with our repair. Using 3-0 Vicryl sutures, I tacked the mesh medially to You's ligament. Two lateral sutures were placed from the mesh to the transversalis fascia. I then began on the left side by making a preperitoneal flap approximately 6 cm superior to the left sided defect. This flap was carried medially past the umbilical ligaments and laterally to the transversalis. It then began dissection of my medial compartment taking this down to the pubic tubercle. I then began the lateral dissection taking this down to the transversalis fascia. Once these compartments were achieved, I began dissection around the cord structures. A large indirect hernia was noted at this point. Using careful dissection, was able to reduce indirect hernia sac off the cord structures. Once this was adequately done, I went ahead and placed a large piece of 3D Max mesh into the abdominal cavity. The mesh was carefully positioned, centering the center of the mesh over the indirect defect. Once this was done, was very satisfied with our repair. Using 3-0 Vicryl sutures, I tacked the mesh medially to You's ligament. Two lateral sutures were placed from the mesh to the transversalis fascia.I then closed the peritoneal flap bilaterally with running 2.0 V Lock suture x 2. The abdomen was then desufflated, and all ports were removed. All incisions were then closed with the 4.0 monocryl suture. Dermabond was placed on each wound. The patient tolerated the procedure well, was extubated in the operating room postoperatively, and will now be transferred to the recovery room in stable condition. Implants bilateral large 3DMax mesh Estimated Blood Loss 10 Drains No Packing No Pathology None sent Complications No immediate complications Condition Stable Disposition PACU [facility] Billing Surgery - Charge Forward: Surgery Billing
[2025-08-28] MEDS: fentaNYL CITRATE INJ (*CRX) 100 MCG/2 ML VIAL 25 MCG IV PUSH ×6 (15:33→15:49)
[2025-08-28] MEDS: HYDROmorphone HCL INJ (*CRX) 1 MG/ML SYR 0.5 MG IV PUSH ×4 (15:58→17:25)
[2025-08-28] MEDS: oxyCODONE HCL (*CRX) 5 MG TAB IR PO (16:55)
== END 2025-08-28 18:05 | disposition home or self-care (01) ==
PROVIDERS: Visit Provider Surgery
PROC: 8E0Y4CZ Robotic Assisted Procedure of Lower Extremity, Percutaneous Endoscopic Approach (ICD-10-PCS; CPT 49650; principal; 2025-08-28 12:00)
DX: K40.20 Bilateral inguinal hernia, without obstruction or gangrene, not specified as recurrent (principal); F41.9 Anxiety disorder, unspecified; Z87.891 Personal history of nicotine dependence
CPT/HCPCS: 49650; S2900; 36415; 86850; 86900; 86901; J0690; A9270; C1781; J1100; J1171; J1885; J2003; J2250; J2405; J2704; J3010; J7120

== ENCOUNTER 2025-08-31 02:59 | Emergency (ER) | payer SELFPAY ==
--- NOTE | ~2025-08-31 | CT_ITS ---
CT abdomen pelvis w con Clinical History: recent hernia repair, poss sbo . Comparison: 08/11/2025 Technique: Axial images lung bases to symphysis pubis 100 mL IV contrast Coronal, sagittal reformats CT images acquired with automatic exposure control for dose reduction DLP: 249 mGy-cm Findings: Lung bases: Clear. Visualized heart and pericardium: Unremarkable. Liver: Enlarged. Steatosis. Gallbladder: Unremarkable. Spleen: Unremarkable. Pancreas: Unremarkable. Adrenal glands: Unremarkable. Kidneys: Right kidney- No hydronephrosis. No renal stones. Left kidney- No hydronephrosis. No renal stones. Distal esophagus/stomach: Unremarkable. Small bowel loops: Normal caliber and wall thickness. Distal air-fluid levels. Colon: A few diverticula. Normal caliber and wall thickness. Normal RLQ appendix. Nodes: No enlarged nodes. Peritoneum: No ascites. No free air. Urinary bladder: Unremarkable. Prostate: Unremarkable. Bones: No acute bony abnormality. Soft tissues: Left lateral abdominal wall subcutaneous emphysema. Aorta: No aneurysm or dissection. IVC: Unremarkable. Main portal vein/SMV/splenic vein: Patent. IMPRESSION: 1. Probable ileus. Recommend continued surveillance to exclude developing obstruction. Reviewed, dictated and finalized at location R. IMPRESSION: 1. Probable ileus. Recommend continued surveillance to exclude developing obst ruction.
[2025-08-31 03:00] VITALS: BP 171/78; PULSE 88; RESP 20; TEMP 36.4; O2SAT 100
--- NOTE | 2025-08-31 03:29 | ED.ABDPAIN ---
HPI - Abdominal Pain General Chief Complaint: Abdominal Pain <Serafin Adams MD - Last Filed: 08/31/25 20:05> Stated Complaint: recent abd surgery, constipation <Serafin Adams MD - Last Filed: 08/31/25 20:05> Time Seen by Provider: 08/31/25 03:10 <Serafin Adams MD - Last Filed: 08/31/25 20:05> Source: patient <Serafin Adams MD - Last Filed: 08/31/25 20:05> Mode of arrival: ambulatory <Serafin Adams MD - Last Filed: 08/31/25 20:05> Limitations: no limitations <Serafin Adams MD - Last Filed: 08/31/25 20:05> History of Present Illness HPI narrative: This is a 35-year-old male with no significant past medical history who presents to the ED for diffuse abdominal pain. Patient states that he had an inguinal hernia repair who 2 days ago and since then, he has been having worsening diffuse abdominal pain. He states he has not had a bowel movement since the surgery. He has been passing gas intermittently. He has not had any nausea. He has been taking his hydrocodone as prescribed is not helping his symptoms. Denies fevers, chills, chest pain, shortness of breath, changes in urination. <Serafin Adams MD - Last Filed: 08/31/25 20:05> Related Data Allergies/Adverse Reactions: Allergies Allergy/AdvReac Type Severity Reaction Status Date / Time aspirin Allergy Unknown Verified 08/31/25 03:05 <Serafin Adams MD - Last Filed: 08/31/25 20:05> Review of Systems Review of Systems: Gen.: Denies fevers or chills Eyes: Denies eye pain or visual change ENT: Denies congestion Respiratory: Denies shortness of breath or cough CV: Denies chest pain or palpitations GI: As per HPI denies burning, urgency, frequency or hematuria Musculoskeletal: Denies back pain or muscle pain Neuro: Denies numbness, tingling, weakness or focal weakness Skin: Denies rash Except as documented, all other systems reviewed and negative <Serafin Adams MD - Last Filed: 08/31/25 20:05> PMFSH Past Medical History Medical History: Medical History Hx of anxiety disorder <Serafin Adams MD - Last Filed: 08/31/25 20:05> Social History Social History: Social History Smoking status: Former smoker Tobacco type: cigars Smoking end date: 08/27/24 Additional smoking assessment comments: Black and milds one a day. Alcohol intake: never Substance use: never Substance use type: marijuana Other substance usage details: Medical card for rene sweets. 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 Spiritual care concerns: No <Serafin Adams MD - Last Filed: 08/31/25 20:05> Exam Narrative: APPEARANCE: Moderate distress, nontoxic, resting in bed EYES: EOMI HEENT: Normocephalic, atraumatic, OMM RESPIRATORY: No respiratory distress Clear to auscultation bilaterally with no rhonchi wheezing or rales. CARDIOVASCULAR: Regular rate and rhythm without murmurs rubs or gallops. ABDOMINAL: Soft, distended, diffuse tenderness to palpation. Incisions clean/dry/intact. MUSCULOSKELETAl: Moves all extremities. No clubbing, cyanosis or edema. NEURO: Awake and alert. Following commands, speech normal, no focal deficits SKIN:: Warm, dry. No rashes lesions or abrasions PSYCHIATRIC: Normal affect/mood, <Serafin Adams MD - Last Filed: 08/31/25 20:05> Course Course Emergency Course: Patient has had a bowel movement after Relistor and fleets enema. His abdomen is more soft and less tender. I have updated General surgery. Patient will be discharged with MiraLax twice a day as well as some Bentyl for cramping. Recommend decreasing narcotic use. Patient verbalized understanding. <Lamont Marie MD - Last Filed: 08/31/25 10:21> Vital Signs Vital signs: Vital Signs Temperature 97.6 F 08/31/25 03:00 Pulse Rate 88 08/31/25 03:00 Respiratory Rate 20 08/31/25 03:00 Blood Pressure 171/78 H 08/31/25 03:00 Pulse Oximetry 100 08/31/25 03:00 Oxygen Delivery Room Air 08/31/25 03:00 Temperature 97.6 F 08/31/25 03:00 Pulse Rate 74 08/31/25 09:02 Respiratory Rate 20 08/31/25 09:02 Blood Pressure 133/73 08/31/25 09:02 Pulse Oximetry 100 08/31/25 09:02 Oxygen Delivery Room Air 08/31/25 03:00 <Serafin Adams MD - Last Filed: 08/31/25 20:05> Vital Signs Temperature 97.6 F 08/31/25 03:00 Pulse Rate 88 08/31/25 03:00 Respiratory Rate 20 08/31/25 03:00 Blood Pressure 171/78 H 08/31/25 03:00 Pulse Oximetry 100 08/31/25 03:00 Oxygen Delivery Room Air 08/31/25 03:00 Temperature 97.6 F 08/31/25 03:00 Pulse Rate 74 08/31/25 09:02 Respiratory Rate 20 08/31/25 09:02 Blood Pressure 133/73 08/31/25 09:02 Pulse Oximetry 100 08/31/25 09:02 Oxygen Delivery Room Air 08/31/25 03:00 <Lamont Marie MD - Last Filed: 08/31/25 10:21> MDM - Abdominal Pain MDM Narrative Medical decision making narrative: 35-year-old male Presenting for abdominal pain after bilateral inguinal hernia repair 3 days ago. On initial evaluation patient was in mild acute distress afebrile, hemodynamic stable. Notable exam findings: Mild abdominal distention with diffuse tenderness to palpation Notable lab findings: CBC and CMP without significant abnormalities. Notable imaging findings: CT abdomen/pelvis consistent with an ileus. I discussed the case with Dr. Phillip, recommended fleets enema and to monitor for potential bowel movement. If the patient does not have a bowel movement then he will admit the patient for further management. Patient was given fleets enema, Reglan, Tylenol. <Serafin Adams MD - Last Filed: 08/31/25 20:05> Differential Diagnosis Differential diagnosis: Likely abdominal pain, constipation, small bowel obstruction and other (post op pain) <Serafin Adams MD - Last Filed: 08/31/25 20:05> Medical Records Attestation: I reviewed the patient's medical records. <Serafin Adams MD - Last Filed: 08/31/25 20:05> Medical records narrative: Patient had bilateral inguinal hernia repair performed on 08/28/2025, no immediate complications, was discharged home that day. <Serafin Adams MD - Last Filed: 08/31/25 20:05> Lab Data Attestation: I reviewed the patient's lab results. <Serafin Adams MD - Last Filed: 08/31/25 20:05> Result diagrams: 08/31/25 03:22 08/31/25 03:22 <Serafin Adams MD - Last Filed: 08/31/25 20:05> Labs: Lab Results 08/31/25 Range/Units 03:22 WBC 9.6 (4.5-10.0) K/mm3 RBC 4.66 (4.6-6.20) M/mm3 Hgb 14.9 (14.0-18.0) g/dL Hct 43.1 (42.0-52.0) % MCV 92.5 (80-100) fl MCH 32.0 (26-34) pg MCHC 34.6 (32-36) g/dl RDW 12.4 (11.5-14.5) % Plt Count 249 (150-375) k/mm3 MPV 8.6 (7.4-10.4) fl Immature Gran % (Auto) 0.2 (0-0.5) % Neut % (Auto) 63.8 (45.5-73.1) % Lymph % (Auto) 24.9 (18.3-44.2) % [place] % (Auto) 9.6 H (2.6-8.5) % Eos % (Auto) 0.7 (0-4.4) % Baso % (Auto) 0.8 (0.2-1.2) % Lymph # (Auto) 2.40 (0.9-3.2) K/mm3 [place] # (Auto) 0.9 H (0.1-0.6) K/mm3 Eos # (Auto) 0.1 (0-0.3) K/mm3 Baso # (Auto) 0.1 (0.0-0.1) K/mm3 Abs Immat Gran (auto) 0.02 (0.00-0.031) K/mm3 Absolute Neuts (auto) 6.1 (1.3-6.7) K/mm3 Absolute Nucleated RBC 0.000 (0.0-0.012) K/mm3 Nucleated RBC % 0.0 (0.0-0.2) % Sodium 137 (137-145) mmol/L Potassium 3.8 (3.4-5.0) mmol/L Chloride 100 (98-107) mmol/L Carbon Dioxide 31 H (22-30) mmol/L Anion Gap 6 (4-12) mmol/L BUN 12 (9-20) mg/dL Creatinine 1.02 (0.7-1.3) mg/dL Estim Creat Clear Calc 87 ml/min Estimated GFR > 60 (59 - ) Glucose 110 (65-110) mg/dL Calcium 9.1 (8.4-10.2) mg/dL Magnesium 2.0 (1.6-2.3) mg/dL Total Bilirubin 0.9 (0.2-1.3) mg/dL AST 28 (17-59) U/L ALT 17 (6-50) U/L Alkaline Phosphatase 71 (38-126) U/L Total Protein 7.6 (6.3-8.2) g/dL Albumin 4.1 (3.5-5.1) g/dL Lipase 165 (23-300) U/L <Serafin Adams MD - Last Filed: 08/31/25 20:05> Lab Results 08/31/25 Range/Units 03:22 WBC 9.6 (4.5-10.0) K/mm3 RBC 4.66 (4.6-6.20) M/mm3 Hgb 14.9 (14.0-18.0) g/dL Hct 43.1 (42.0-52.0) % MCV 92.5 (80-100) fl MCH 32.0 (26-34) pg MCHC 34.6 (32-36) g/dl RDW 12.4 (11.5-14.5) % Plt Count 249 (150-375) k/mm3 MPV 8.6 (7.4-10.4) fl Immature Gran % (Auto) 0.2 (0-0.5) % Neut % (Auto) 63.8 (45.5-73.1) % Lymph % (Auto) 24.9 (18.3-44.2) % [place] % (Auto) 9.6 H (2.6-8.5) % Eos % (Auto) 0.7 (0-4.4) % Baso % (Auto) 0.8 (0.2-1.2) % Lymph # (Auto) 2.40 (0.9-3.2) K/mm3 [place] # (Auto) 0.9 H (0.1-0.6) K/mm3 Eos # (Auto) 0.1 (0-0.3) K/mm3 Baso # (Auto) 0.1 (0.0-0.1) K/mm3 Abs Immat Gran (auto) 0.02 (0.00-0.031) K/mm3 Absolute Neuts (auto) 6.1 (1.3-6.7) K/mm3 Absolute Nucleated RBC 0.000 (0.0-0.012) K/mm3 Nucleated RBC % 0.0 (0.0-0.2) % Sodium 137 (137-145) mmol/L Potassium 3.8 (3.4-5.0) mmol/L Chloride 100 (98-107) mmol/L Carbon Dioxide 31 H (22-30) mmol/L Anion Gap 6 (4-12) mmol/L BUN 12 (9-20) mg/dL Creatinine 1.02 (0.7-1.3) mg/dL Estim Creat Clear Calc 87 ml/min Estimated GFR > 60 (59 - ) Glucose 110 (65-110) mg/dL Calcium 9.1 (8.4-10.2) mg/dL Magnesium 2.0 (1.6-2.3) mg/dL Total Bilirubin 0.9 (0.2-1.3) mg/dL AST 28 (17-59) U/L ALT 17 (6-50) U/L Alkaline Phosphatase 71 (38-126) U/L Total Protein 7.6 (6.3-8.2) g/dL Albumin 4.1 (3.5-5.1) g/dL Lipase 165 (23-300) U/L <Lamont Marie MD - Last Filed: 08/31/25 10:21> Imaging Data Attestation: I personally reviewed and interpreted this imaging study as follows: <Serafin Adams MD - Last Filed: 08/31/25 20:05> Radiologist's impression: ITS Impressions Abdomen/Pelvis CT 08/31/25 06:19 IMPRESSION: 1. Probable ileus. Recommend continued surveillance to exclude developing obstruction. <Serafin Adams MD - Last Filed: 08/31/25 20:05> ITS Impressions Abdomen/Pelvis CT 08/31/25 06:19 IMPRESSION: 1. Probable ileus. Recommend continued surveillance to exclude developing obstruction. <Lamont Marie MD - Last Filed: 08/31/25 10:21> Discharge Plan Discharge Clinical Impression: Postoperative ileus <Serafin Adams MD - Last Filed: 08/31/25 20:05> Patient Disposition: Home <Serafin Adams MD - Last Filed: 08/31/25 20:05> Condition: Stable <Serafin Adams MD - Last Filed: 08/31/25 20:05> Instructions: Ileus (ED) <Serafin Adams MD - Last Filed: 08/31/25 20:05> Additional Instructions: Take MiraLax twice a day to encourage passage of stool. You may take dicyclomine for abdominal cramping. If you began having diarrhea discontinue the laxative. Return to the ER if you have worsening pain, you cannot keep down food or water, or you have additional concerns. <Serafin Adams MD - Last Filed: 08/31/25 20:05> Patient Language: Indian <Serafin Adams MD - Last Filed: 08/31/25 20:05> Prescriptions: New dicyclomine 20 mg tablet 20 mg PO QID Qty: 20 0RF polyethylene glycol 3350 [Miralax] 17 gram/dose powder 17 g PO BID Qty: 119 0RF No Action hydrocodone-acetaminophen 5-325 mg tablet 1 tablet PO Q6H PRN (Reason: pain) Qty: 20 0RF docusate sodium [Colace] 100 mg capsule 100 mg PO BID Qty: 20 0RF <Serafin Adams MD - Last Filed: 08/31/25 20:05> Follow-up/Referrals: PHYSICIAN,DONOR PROCESSOR [Primary Care Provider, Internal Medicine] John Jacobson DO [Physician, General Surgery] - 1 Week <Serafin Adams MD - Last Filed: 08/31/25 20:05>
[2025-08-31 03:31] LABS: Hematocrit 43.1 % (42.0-52.0); Hemoglobin 14.9 g/dL (14.0-18.0); Immature Granulocyte Percent A 0.2 % (0-0.5); Lymphocytes Absolute Auto 2.40 K/mm3 (0.9-3.2); Mean Corpuscular HGB Conc 34.6 g/dl (32-36); Mean Corpuscular Hemoglobin 32.0 pg (26-34); Mean Corpuscular Volume 92.5 fl (80-100); Nucleated Red Blood Cells Absolute Auto 0.000 K/mm3 (0.0-0.012); Nucleated Red Blood Cells Perc 0.0 % (0.0-0.2); Platelet Count Result 249 k/mm3 (150-375); Red Blood Count 4.66 M/mm3 (4.6-6.20); White Blood Count 9.6 K/mm3 (4.5-10.0)
[2025-08-31 03:46] LABS: Alanine Aminotransferase 17 U/L (6-50); Albumin Level 4.1 g/dL (3.5-5.1); Alkaline Phosphatase 71 U/L (38-126); Anion Gap 6 mmol/L (4-12); Aspartate Amino Transferase 28 U/L (17-59); Bilirubin,Total 0.9 mg/dL (0.2-1.3); Blood Urea Nitrogen 12 mg/dL (9-20); Calcium 9.1 mg/dL (8.4-10.2); Carbon Dioxide 31 mmol/L (22-30); Chloride 100 mmol/L (98-107); Estimated CRCL calculation 87 ml/min; Estimated Glomerular Filt Rate > 60; Glucose 110 mg/dL (65-110); Lipase 165 U/L (23-300); Potassium 3.8 mmol/L (3.4-5.0); Sodium 137 mmol/L (137-145); Total Protein 7.6 g/dL (6.3-8.2)
[2025-08-31] MEDS: ONDANSETRON INJ 4 MG/2 ML VIAL IV PUSH (03:48)
[2025-08-31] MEDS: MORPHINE SULFATE (*CRX) 4 MG/ML INJ IV PUSH (03:48)
[2025-08-31 05:52] VITALS: BP 171/73; PULSE 80; RESP 18; O2SAT 99
[2025-08-31 05:58] LABS: Magnesium 2.0 mg/dL (1.6-2.3)
[2025-08-31] MEDS: ACETAMINOPHEN 500 MG TABLET 1000 MG PO (06:10)
[2025-08-31] MEDS: METOCLOPRAMIDE HCL INJ 10 MG/2 ML VIAL IV PUSH (06:11)
[2025-08-31] MEDS: METHYLNALTREXONE 12 MG/0.6 ML VIAL SUB-Q (07:50)
[2025-08-31 09:02] VITALS: BP 133/73; PULSE 74; RESP 20; O2SAT 100
--- NOTE | 2025-08-31 09:33 | PC.NURSE ---
Up to bathroom. Pt reports moderate sized diarrhea stool.
== END 2025-08-31 10:41 | disposition home or self-care (01) ==
PROVIDERS: Emergency Provider Student in an Organized Health Care Education/Training Program
DX: K91.89 Other postprocedural complications and disorders of digestive system (principal); K56.7 Ileus, unspecified; F41.9 Anxiety disorder, unspecified
CPT/HCPCS: 36415; 74177; 80053; 83690; 83735; 85025; 96372; 96374; 96375; 99284; A9270; J2212; J2270; J2405; J2765; Q9967

== ENCOUNTER 2025-09-04 05:27 | Inpatient (IN) | payer MEDICAID, SELFPAY ==
[2025-09-04] VITALS (7 sets, daily range): BP systolic 137–153; BP diastolic 82–97; PULSE 79–92; RESP 15–20; TEMP 36.6–37.1; O2SAT 98–100; BMI 23.2
--- NOTE | ~2025-09-04 | XR_ITS ---
EXAMINATION: XR abdomen gastric tube insert, 09/05/2025 15:40 CDT HISTORY: Confirm NG tube placement COMPARISON: No comparisons available. Technique: 3 view. Findings: There are dilated loops of small bowel the largest 4 cm consistent with small bowel obstruction. No free air. No abnormal calcifications No acute osseous abnormality. Nasogastric tube is coiled in the stomach. Impression: 1. Nasogastric tube in appropriate location Reviewed, dictated and finalized at location P. Impression: 1. Nasogastric tube in appropriate location
--- NOTE | ~2025-09-04 | XR_ITS ---
Abdominal radiograph(s) INDICATION: Small bowel obstruction COMPARISON: Recent CT and x-ray TECHNIQUE: Portable supine AP abdomen FINDINGS: Air-fluid levels cannot be assessed on supine projection. Colonic loops poorly seen. Persistent gaseous dilatation small bowel loops. No abnormal abdominal calcifications. No acute bony abnormality. IMPRESSION: 1. No significant change. Dilated small bowel loops persist. Reviewed, dictated and finalized at location R.
--- NOTE | ~2025-09-04 | CT_ITS ---
EXAMINATION: CT abdomen pelvis w con DATE: 09/04/2025 06:42 INDICATION: Abdominal pain. Nausea and vomiting. Constipation. Recent left inguinal hernia repair. TECHNIQUE: Computed tomography (CT) of the abdomen and pelvis was performed with 100 mL Omnipaque 350 intravenous contrast. Automated exposure control and iterative reconstruction technique were employed. The dose-length product was 306.86 mGy-cm. COMPARISON: CT abdomen and pelvis 08/31/25 FINDINGS: The visualized portions of the lung bases demonstrate minimal atelectasis. No pleural effusion. The heart size is normal. No pericardial effusion. The liver, gallbladder, spleen, pancreas, adrenal glands, and kidneys are normal. The colon and distal small bowel are decompressed. The appendix is normal. There are multiple dilated loops of small bowel with possible transition point in right lower quadrant. There are no pathologically enlarged lymph nodes. There is no free intraperitoneal fluid. There is mild lumbar spondylosis. IMPRESSION: 1. Dilated small bowel, which may be adynamic ileus or less likely distal small bowel obstruction. Reviewed, dictated and finalized at location E.
--- NOTE | ~2025-09-04 | XR_ITS ---
EXAM/PROCEDURE: XR abdomen gastric tube recheck HISTORY: Recheck of NG tube COMPARISON: 1550 hours TECHNIQUE: Frontal view of the chest and upper abdomen FINDINGS: Frontal image of the upper abdomen and the chest. The NG tube has been repositioned and has its tip in the gastric fundus. IMPRESSION: NG tube as described Reviewed, dictated and finalized at location A. IMPRESSION: NG tube as described
--- NOTE | ~2025-09-04 | XR_ITS ---
EXAMINATION: XR sm bowel follow through WS DATE: 09/08/2025 13:45 INDICATION: Small bowel obstruction TECHNIQUE: Tax Representative radiograph(s) of the abdomen was/were obtained. Water-soluble oral contrast was administered, and sequential radiographs of the abdomen were obtained through 3 hours. COMPARISON: CT dated 09/04/2025 and KUB dated 09/08/2025 FINDINGS: Again seen is a nasogastric tube with tip in proximal side port in the body of the stomach. Again seen are multiple dilated gas-filled loops of small bowel throughout the abdomen and pelvis consistent with small bowel obstruction or ileus. Contrast extends through the stomach and duodenum into the dilated proximal jejunum on the initial 15 minutes of imaging with minimal progression over the subsequent nearly 3 hours of subsequent imaging. The patient's nasogastric tube was reattached to suction at this point resulting in decrease in caliber of the contrast-filled loops of bowel and the study was terminated at this point. IMPRESSION: 1. Persistent multiple dilated gas-filled loops of small bowel no significant progression of contrast beyond the proximal ileum or 3 hours of imaging consistent with small bowel obstruction versus severe ileus. Reviewed, dictated and finalized at location A. GN CONSULTANT IMPRESSION: 1. Persistent multiple dilated gas-filled loops of small bowel no significant p rogression of contrast beyond the proximal ileum or 3 hours of imaging consiste nt with small bowel obstruction versus severe ileus.
--- NOTE | ~2025-09-04 | XR_ITS ---
EXAMINATION: XR abdomen/kub 1V, 09/05/2025 8:10 CDT HISTORY: SBO COMPARISON: No comparisons available. Technique: 3 view. Findings: There are dilated loops of small bowel the largest measuring 4 cm, there is diminished throughout the large bowel. No free air. No abnormal calcifications No acute osseous abnormality. Impression: 1. Small bowel obstruction Reviewed, dictated and finalized at location P. Impression: 1. Small bowel obstruction
--- NOTE | ~2025-09-04 | US_ITS ---
EXAMINATION: US venous doppler [facility], 09/13/2025 16:15 HOG PUSHER HISTORY: elevated d-dimer, possible pulmonary infarct COMPARISON: None Technique: Levy-scale and color Doppler images were attempted of the lower saphenofemoral junction, common femoral vein,superficial femoral vein, proximal deep femoral vein, proximal deep femoral vein, popliteal vein and posterior tibial veins. Findings: Deep Venous System:Normal flow, augmentation and compressibility. No echogenic thrombus identified. Superficial Venous SystemNo superficial thrombophlebitis. Soft tissues: Soft tissues are unremarkable. Impression: Negative for DVT. Reviewed, dictated and finalized at location P. PUSHER Impression: Negative for DVT.
--- NOTE | ~2025-09-04 | CT_ITS ---
EXAMINATION: CT chest abdomen pelvis w con DATE: 09/12/2025 22:00 INDICATION: Fever. Cough. TECHNIQUE: Computed tomography (CT) of the chest, abdomen, and pelvis was performed with 100 mL Omnipaque 350 intravenous contrast. Automated exposure control and iterative reconstruction technique were employed. The dose-length product was 668.17 mGy-cm. COMPARISON: CT abdomen and pelvis 09/04/2025 FINDINGS: CHEST CT: The lungs demonstrate mild atelectasis. There are airspace opacities in basilar left lower lobe. There are trace pleural effusions. The heart size is normal. No pericardial effusion. There is mild thoracic spondylosis. ABDOMEN/PELVIS CT: The liver, gallbladder, spleen, pancreas, adrenal glands, and kidneys are normal. The appendix is normal. There is oral contrast in the colon. There are dilated loops of small bowel, consistent with adynamic ileus. There is gas in the body wall, consistent with recent surgery. There are no pathologically enlarged lymph nodes. In the right lower quadrant anteriorly, there is a 11.1 x 2.0 x 3.4 cm rim-enhancing fluid collection. There is mild lumbar spondylosis. IMPRESSION: 1. Airspace opacities in basilar left lower lobe, consistent with pneumonia versus infarct. 2. Dilated loops of small bowel, consistent with adynamic ileus. 3. 11.1 x 2.0 x 3.4 cm postoperative rim-enhancing fluid collection in the right lower quadrant anteriorly, which may be a seroma or abscess. Reviewed, dictated and finalized at location E. WEIGHER IMPRESSION: 1. Airspace opacities in basilar left lower lobe, consistent with pneumonia porsha nikolas infarct. 2. Dilated loops of small bowel, consistent with adynamic ileus. 3. 11.1 x 2.0 x 3.4 cm postoperative rim-enhancing fluid collection in the righ t lower quadrant anteriorly, which may be a seroma or abscess.
--- NOTE | ~2025-09-04 | US_ITS ---
EXAMINATION: US percutaneous drain w cath DATE: 09/15/2025 11:43 INDICATION: Right lower quadrant abscess TECHNIQUE: The procedure and its risks and benefits were discussed with the patient. Potential risks discussed included bleeding and infection. The skin was prepped and draped in sterile fashion. 1% lidocaine was used for local anesthesia. Under ultrasound guidance, a 5 Fr catheter with trochar was advanced into the small superficial loculated fluid collection along the anterior abdominal wall the right lower quadrant. 9 mm of relatively clear dark reddish colored fluid was aspirated and sent to the lab for Gram stain and cultures. The catheter was removed, and a dressing was applied. There were no immediate complications. FINDINGS: Ultrasound images demonstrate drainage catheter advanced into a 7 x 4.5 x 1.4 cm complex loculated fluid collection along the anterior abdominal wall. Right lower quadrant. IMPRESSION: 1. Successful ultrasound-guided aspiration medially 9 mL of bubbly clear dark reddish fluid most suggestive of an evolving hematoma/seroma along the anterior wall of the right lower quadrant likely relate to reported recent inguinal hernia repair. Abscess considered unlikely however would correlate with results from the pending Gram stain and cultures. Reviewed, dictated and finalized at location A. FIC SIGN SUPERVISOR IMPRESSION: 1. Successful ultrasound-guided aspiration medially 9 mL of bubbly clear dark reddish fluid most suggestive of an evolving hematoma/seroma along the anterior wall of the right lower quadrant likely relate to reported recent inguinal her karen repair. Abscess considered unlikely however would correlate with results fr om the pending Gram stain and cultures.
--- NOTE | ~2025-09-04 | CT_ITS ---
EXAMINATION: CTA chest PE protocol DATE: 09/13/2025 17:40 INDICATION: Shortness of breath. TECHNIQUE: Computed tomography angiography (CTA) of the chest was performed with 100 mL Omnipaque-350 intravenous contrast timed to evaluate the pulmonary arteries. Coronal maximum intensity projection 3D-reconstructions were created by the technologist. Automated exposure control and iterative reconstruction technique were employed. The dose-length product was 276.96 mGy-cm. COMPARISON: Chest CT 09/12/2025 FINDINGS: There are airspace and groundglass opacities in basilar left lower lobe. There is mild atelectasis bilaterally. There are trace pleural effusions. The heart size is normal. No pericardial effusion. There is no pulmonary embolus. There are dilated loops of small bowel. There is mild thoracic s pondylosis. IMPRESSION: 1. No pulmonary embolus. 2. Persistent airspace and groundglass opacities in basilar left lower lobe, consistent with pneumonia. 3. Dilated loops of small bowel, likely adynamic ileus. Reviewed, dictated and finalized at location E. MOTIVE SERVICE DIRECTOR IMPRESSION: 1. No pulmonary embolus. 2. Persistent airspace and groundglass opacities in basilar left lower lobe, co nsistent with pneumonia. 3. Dilated loops of small bowel, likely adynamic ileus.
--- NOTE | ~2025-09-04 | XR_ITS ---
Clinical history:Nasogastric tube recheck EXAM:X-ray abdomen gastric tube recheck TECHNIQUE:A single frontal image of the lower chest and upper abdomen was obtained. Comparisons:09/05/2025 FINDINGS: Redemonstration of the dilated bowel loops in the visualized upper abdomen. Small patchy opacities in the left lower lung. Redemonstration of the coiled nasogastric tube in the stomach. IMPRESSION: 1. Redemonstration of the coiled nasogastric tube in the stomach. The nasogastric tube should be removed and replaced. 2. Redemonstration of the dilated bowel loops in the visualized upper abdomen. A small bowel obstruction is suspected. Correlate clinically. If symptoms persist or worsen, consider a short-term follow-up study or additional imaging for further assessment. Reviewed, dictated and finalized at location Q. IMPRESSION: 1. Redemonstration of the coiled nasogastric tube in the stomach. The nasogastr ic tube should be removed and replaced. 2. Redemonstration of the dilated bowel loops in the visualized upper abdomen. A small bowel obstruction is suspected. Correlate clinically. If symptoms persist or worsen, consider a short-term follow-up study or additio nal imaging for further assessment.
--- NOTE | ~2025-09-04 | XR_ITS ---
Abdominal radiograph(s) INDICATION: Small bowel obstruction COMPARISON: One day prior TECHNIQUE: Portable supine AP abdomen FINDINGS: Air-fluid levels cannot be assessed on supine projection. Colonic loops poorly seen. Persistent gaseous dilatation of small bowel loops. No abnormal abdominal calcifications. No acute bony abnormality. IMPRESSION: 1. No significant change. Persistent dilated small bowel loops. Reviewed, dictated and finalized at location R. D TRAFFIC INVESTIGATOR
--- NOTE | ~2025-09-04 | XR_ITS ---
EXAMINATION: XR abdomen gastric tube insert, 09/04/2025 10:22 CDT HISTORY: NG tube placement COMPARISON: No comparisons available. Technique: 3 view. Findings: Dilated loops of small bowel the largest 4 cm. No free air. No abnormal calcifications No acute osseous abnormality. Nasogastric tube terminates in the mid stomach. Impression: 1. Small bowel obstruction Reviewed, dictated and finalized at location P. Impression: 1. Small bowel obstruction
--- NOTE | ~2025-09-04 | XR_ITS ---
EXAMINATION: XR abdomen gastric tube insert DATE: 09/11/2025 05:25 INDICATION: Nasogastric tube placement TECHNIQUE: A supine view of the abdomen and lower chest was obtained for evaluation of feeding tube placement. COMPARISON: 09/05/2025 FINDINGS: Nasogastric tube tip in proximal side port in the body of the stomach. Gas and small to moderate amount of stool scattered throughout the colon. There are some residual oral contrast material in the colon from earlier small bowel follow- through study. No dilated loops of gas-filled small bowel to suggest obstruction. Lung bases are clear. Heart size is normal. IMPRESSION: 1. Nasal gastric tube in the stomach. Reviewed, dictated and finalized at location A. AD REELER
--- NOTE | ~2025-09-04 | XR_ITS ---
EXAMINATION: XR abdomen/kub 1V, 09/12/2025 17:00 CARGO SUPERVISOR HISTORY: fever, abdominal distention--portable COMPARISON: No comparisons available. Technique: 3 view. Findings: There is moderate bowel content with dilated loops of large bowel the largest measuring 7 cm. No free air. No abnormal calcifications No acute osseous abnormality. Impression: 1. Colonic ileus, obstruction considered unlikely but not excluded. Follow-up is suggested to assess resolution. If symptoms persist CT is recommended Reviewed, dictated and finalized at location P. O SUPERVISOR Impression: 1. Colonic ileus, obstruction considered unlikely but not excluded. Follow-up i s suggested to assess resolution. If symptoms persist CT is recommended
--- NOTE | ~2025-09-04 | XR_ITS ---
EXAMINATION: XR abdomen/kub 1V DATE: 09/08/2025 05:56 INDICATION: Small bowel obstruction. Follow-up TECHNIQUE: A single portable AP supine frontal image of the abdomen was obtained COMPARISON: 09/07/2025 FINDINGS: Multiple dilated small bowel loops similar to the prior study from 09/07/2025. No abnormal calcifications. Probable nasogastric tube projecting over the left upper abdomen which was not fully visualized. IMPRESSION: 1. Multiple dilated small bowel loops similar to the prior study from 09/07/2025. The findings are suggestive of a small bowel obstruction. 2. Probable nasogastric tube projecting over the left upper abdomen which was not fully visualized. Reviewed, dictated and finalized at location Q. LTY CANDY MAKER IMPRESSION: 1. Multiple dilated small bowel loops similar to the prior study from 09/07/2025 . The findings are suggestive of a small bowel obstruction. 2. Probable nasogastric tube projecting over the left upper abdomen which was n ot fully visualized.
--- NOTE | ~2025-09-04 | XR_ITS ---
EXAMINATION: XR chest 1V portable COMPARISON: No comparisons available. HISTORY: fever FINDINGS: The lungs are clear, no effusion. No pneumothorax. Heart is normal size. Mediastinal and hilar contours are within normal limits. Bony thorax no acute abnormality. Miscellaneous: None Impression: No acute cardiopulmonary abnormality. Reviewed, dictated and finalized at location P. LE ENGINEER Impression: No acute cardiopulmonary abnormality.
--- NOTE | 2025-09-04 05:40 | ED_ITS ---
HPI - Nausea/Vomiting/Diarrhea General Chief complaint: Nausea/Vomiting/Diarrhea <Jarrod Linton MD - Last Filed: 09/05/25 03:49> Stated complaint: post-op hernia repair on , vomiting <Jarrod Linton MD - Last Filed: 09/05/25 03:49> Time Seen by Provider: 09/04/25 05:34 <Jarrod Linton MD - Last Filed: 09/05/25 03:49> History of Present Illness HPI Narrative: 35-year-old male with a past medical history including recent bilateral inguinal hernia repair last week. Patient had postoperative ileus and constipation and was seen here 4 days ago. Patient had imaging studies that showed possible ileus versus early obstruction and was treated with enema and had improvement and discharged on MiraLax after discussion with General surgery at that time. Patient has not been able to follow-up with his surgeon yet but called our office yesterday and was prescribe Zofran for vomiting and was told he might need an x-ray but did not get this done. Presents this morning as he is having worsening abdominal pain associated with nausea vomiting. States he has not had anything to eat that has been staying down for last few days. Last bowel movement 2 days ago. No fever chills. No shortness of breath or urinary complaints. No traumatic injuries. Incisions are healing well without any redness or purulence. Tried the Zofran at home without any improvement in his nausea. Has been using dicyclomine and MiraLax with no significant change. < Jarrod Linton MD - Last Filed: 09/05/25 03:49> Related Data Allergies/Adverse reactions: Allergies Allergy/AdvReac Type Severity Reaction Status Date / Time aspirin Allergy Unknown Verified 09/04/25 11:06 <Jarrod Linotn MD - Last Filed: 09/05/25 03:49> Review of Systems 2 Review of Systems: As reviewed above in HPI <Jarrod Linton MD - Last Filed: 09/05/25 03:49> [facility] [place] Past Medical History Medical History: Medical History Hx of anxiety disorder <Jarrod Linton MD - Last Filed: 09/05/25 03:49> Surgical History Surgical History: Surgical History History of bilateral inguinal hernia repair <Jarrod Linton MD - Last Filed: 09/05/25 03:49> Social History Social History: Social History Smoking status: Former smoker Additional smoking assessment comments: Black and milds one a day. Alcohol intake: never Substance use: never Substance use type: marijuana Other substance usage details: Medical card for rene sweets for anxiety Lack of Transportation: No Lack of Food: Never True Current Housing: I Have Housing Concerned About Future Housing: No Difficulty Paying Gas/Electric Bills: No Difficulty Paying for Meds: No Currently Unemployed: No Education: Decline to Answer Difficulty w/ Childcare or Family Care: No Living arrangements: with family Occupation/Education: occupation Additional occupation/education comments: [employer] care concerns: No <Jarrod Linton MD - Last Filed: 09/05/25 03:49> Exam 2 Narrative: GENERAL: [Well-appearing, well-nourished, and in no acute distress.] HEAD: [Normocephalic, atraumatic.] EYES: [PERRLA and EOMI.] ENT: Nares clear, no rhinorrhea or epistaxis. Mucous membranes moist. NECK: Supple. CHEST: [Clear to auscultation. No respiratory distress.] HEART: [Regular rate and rhythm]. No murmur heard. [Normal peripheral pulses.] ABDOMEN: Mildly distended, soft to palpation but diffusely tender. Incisions are clean dry and intact. No inguinal hernias or masses appreciated. EXTREMITIES: Normal range of motion. [No edema.] SKIN: Warm, dry, no rash. NEURO: [No focal deficits]. Alert and oriented [x3.] PSYCH: [Normal mood and affect.] <Jarrod Linton MD - Last Filed: 09/05/25 03:49> Course Reevaluation(s) Reevaluation #1: I assumed care of this patient at shift change with pending CT and disposition. I re-examined the patient he is still in moderate amount of pain. However denies any nausea or vomiting. Informed him about the lab work, CT findings. Will consult Dr. Anne. Discussed with Dr. Potts recommended NG tube, IV fluids and pain control. < Rakesh Heath MD - Last Filed: 09/04/25 09:10> Vital Signs Vital signs: Vital Signs Temperature 36.7 C 09/04/25 05:36 Pulse Rate 91 09/04/25 05:36 Respiratory Rate 19 09/04/25 05:36 Blood Pressure 149/97 H 09/04/25 05:36 Pulse Oximetry 98 09/04/25 05:36 Oxygen Delivery Room Air 09/04/25 05:36 Temperature 36.6 C 09/04/25 19:38 Pulse Rate 87 09/04/25 19:38 Respiratory Rate 18 09/04/25 19:38 Blood Pressure 144/86 H 09/04/25 19:38 Pulse Oximetry 100 09/04/25 19:38 Oxygen Delivery Room Air 09/04/25 21:46 <Jarrod Linton MD - Last Filed: 09/05/25 03:49> Vital Signs Temperature 36.7 C 09/04/25 05:36 Pulse Rate 91 09/04/25 05:36 Respiratory Rate 19 09/04/25 05:36 Blood Pressure 149/97 H 09/04/25 05:36 Pulse Oximetry 98 09/04/25 05:36 Oxygen Delivery Room Air 09/04/25 05:36 Temperature 36.6 C 09/04/25 19:38 Pulse Rate 87 09/04/25 19:38 Respiratory Rate 18 09/04/25 19:38 Blood Pressure 144/86 H 09/04/25 19:38 Pulse Oximetry 100 09/04/25 19:38 Oxygen Delivery Room Air 09/04/25 21:46 <Rakesh Heath MD - Last Filed: 09/04/25 09:10> MDM - Nausea/Vomiting/Diarrhea MDM Narrative Medical decision making narrative: 35-year-old male with a past medical history including recent bilateral inguinal hernia repair last week. Patient had postoperative ileus and constipation and was seen here 4 days ago. Patient had imaging studies that showed possible ileus versus early obstruction and was treated with enema and had improvement and discharged on MiraLax after discussion with General surgery at that time. Patient has not been able to follow-up with his surgeon yet but called our office yesterday and was prescribe Zofran for vomiting and was told he might need an x-ray but did not get this done. Presents this morning as he is having worsening abdominal pain associated with nausea vomiting. States he has not had anything to eat that has been staying down for last few days. Last bowel movement 2 days ago. No fever chills. No shortness of breath or urinary complaints. No traumatic injuries. Incisions are healing well without any redness or purulence. Tried the Zofran at home without any improvement in his nausea. Has been using dicyclomine and MiraLax with no significant change. Patient does have a mildly distended abdomen as well as diffuse tenderness to palpation but no appreciable masses or recurrence of his hernias. Given his inability to tolerate oral intake with profound nausea vomiting as well as constipation for 2 days concern for postoperative obstruction is raised verses ileus or less likely infectious process. Repeat laboratory studies and repeat imaging obtained at this time given last CT showed concern for possible early bowel obstruction. Lab show a slight leukocytosis of 12 but also hemoconcentrated sample with a hemoglobin of 18 so likely dehydration rather than active infection. Electrolytes on the low side consistent with his vomiting. Normal creatinine, unremarkable glucose. Negative lactic acid. LFTs around normal. CT scan pending. Patient signed over to morning physician pending CT results and final disposition. <Jarrod Linton MD - Last Filed: 09/05/25 03:49> Medical Records Attestation: I reviewed the patient's medical records. <Jarrod Linton MD - Last Filed: 09/05/25 03:49> Lab Data Attestation: I reviewed the patient's lab results. <Jarrod Linton MD - Last Filed: 09/05/25 03:49> Result diagrams: 09/04/25 05:47 09/04/25 05:47 <Jarrod Linton MD - Last Filed: 09/05/25 03:49> Labs: Lab Results 09/04/25 09/04/25 Range/Units 05:45 05:47 WBC 12.0 H (4.5-10.0) K/mm3 RBC 5.66 (4.6-6.20) M/mm3 Hgb 18.0 D (14.0-18.0) g/dL Hct 50.9 (42.0-52.0) % MCV 89.9 (80-100) fl MCH 31.8 (26-34) pg MCHC 35.4 (32-36) g/dl RDW 11.9 (11.5-14.5) % Plt Count 339 (150-375) k/mm3 MPV 9.2 (7.4-10.4) fl Immature Gran % (Auto) 0.3 (0-0.5) % Neut % (Auto) 75.7 H (45.5-73.1) % Lymph % (Auto) 10.8 L (18.3-44.2) % [place] % (Auto) 12.1 H (2.6-8.5) % Eos % (Auto) 0.6 (0-4.4) % Baso % (Auto) 0.5 (0.2-1.2) % Lymph # (Auto) 1.29 (0.9-3.2) K/mm3 [place] # (Auto) 1.5 H (0.1-0.6) K/mm3 Eos # (Auto) 0.1 (0-0.3) K/mm3 Baso # (Auto) 0.1 (0.0-0.1) K/mm3 Abs Immat Gran (auto) 0.04 H (0.00-0.031) K/mm3 Absolute Neuts (auto) 9.1 H (1.3-6.7) K/mm3 Absolute Nucleated RBC 0.000 (0.0-0.012) K/mm3 Nucleated RBC % 0.0 (0.0-0.2) % Sodium 133 L (137-145) mmol/L Potassium 3.5 (3.4-5.0) mmol/L Chloride 88 L (98-107) mmol/L Carbon Dioxide 32 H (22-30) mmol/L Anion Gap 13 H (4-12) mmol/L BUN 14 (9-20) mg/dL Creatinine 1.15 (0.7-1.3) mg/dL Estim Creat Clear Calc 78 ml/min Estimated GFR > 60 (59 - ) Glucose 130 H (65-110) mg/dL Lactic Acid 1.6 (0.7-2.0) mmol/L Calcium 9.8 (8.4-10.2) mg/dL Magnesium 1.8 (1.6-2.3) mg/dL Total Bilirubin 1.4 H (0.2-1.3) mg/dL AST 34 (17-59) U/L ALT 17 (6-50) U/L Alkaline Phosphatase 77 (38-126) U/L Total Protein 8.7 H (6.3-8.2) g/dL Albumin 4.8 (3.5-5.1) g/dL Lipase 100 (23-300) U/L Urine Color Pending Urine Appearance Pending Urine pH Pending Ur Specific [place] Pending Urine Protein Pending Urine Glucose (UA) Pending Urine Ketones Pending Ur Blood (Man) Pending Urine Nitrate Pending Urine Bilirubin Pending Urine Urobilinogen Pending Leukocyte Esterase Rfl Pending <Jarrod Linton MD - Last Filed: 09/05/25 03:49> Lab Results 09/04/25 09/04/25 Range/Units 05:45 05:47 WBC 12.0 H (4.5-10.0) K/mm3 RBC 5.66 (4.6-6.20) M/mm3 Hgb 18.0 D (14.0-18.0) g/dL Hct 50.9 (42.0-52.0) % MCV 89.9 (80-100) fl MCH 31.8 (26-34) pg MCHC 35.4 (32-36) g/dl RDW 11.9 (11.5-14.5) % Plt Count 339 (150-375) k/mm3 MPV 9.2 (7.4-10.4) fl Immature Gran % (Auto) 0.3 (0-0.5) % Neut % (Auto) 75.7 H (45.5-73.1) % Lymph % (Auto) 10.8 L (18.3-44.2) % [place] % (Auto) 12.1 H (2.6-8.5) % Eos % (Auto) 0.6 (0-4.4) % Baso % (Auto) 0.5 (0.2-1.2) % Lymph # (Auto) 1.29 (0.9-3.2) K/mm3 [place] # (Auto) 1.5 H (0.1-0.6) K/mm3 Eos # (Auto) 0.1 (0-0.3) K/mm3 Baso # (Auto) 0.1 (0.0-0.1) K/mm3 Abs Immat Gran (auto) 0.04 H (0.00-0.031) K/mm3 Absolute Neuts (auto) 9.1 H (1.3-6.7) K/mm3 Absolute Nucleated RBC 0.000 (0.0-0.012) K/mm3 Nucleated RBC % 0.0 (0.0-0.2) % Sodium 133 L (137-145) mmol/L Potassium 3.5 (3.4-5.0) mmol/L Chloride 88 L (98-107) mmol/L Carbon Dioxide 32 H (22-30) mmol/L Anion Gap 13 H (4-12) mmol/L BUN 14 (9-20) mg/dL Creatinine 1.15 (0.7-1.3) mg/dL Estim Creat Clear Calc 78 ml/min Estimated GFR > 60 (59 - ) Glucose 130 H (65-110) mg/dL Lactic Acid 1.6 (0.7-2.0) mmol/L Calcium 9.8 (8.4-10.2) mg/dL Magnesium 1.8 (1.6-2.3) mg/dL Total Bilirubin 1.4 H (0.2-1.3) mg/dL AST 34 (17-59) U/L ALT 17 (6-50) U/L Alkaline Phosphatase 77 (38-126) U/L Total Protein 8.7 H (6.3-8.2) g/dL Albumin 4.8 (3.5-5.1) g/dL Lipase 100 (23-300) U/L Urine Color Pending Urine Appearance Pending Urine pH Pending Ur Specific [place] Pending Urine Protein Pending Urine Glucose (UA) Pending Urine Ketones Pending Ur Blood (Man) Pending Urine Nitrate Pending Urine Bilirubin Pending Urine Urobilinogen Pending Leukocyte Esterase Rfl Pending <Rakesh Heath MD - Last Filed: 09/04/25 09:10> Discharge Plan Discharge Clinical Impression: Postoperative nausea, Postoperative abdominal pain, Acute dehydration <Jarrod Linton MD - Last Filed: 09/05/25 03:49> Patient Disposition: Still a Patient <Jarrod Linton MD - Last Filed: 09/05/25 03:49> Condition: Stable <Jarrod Linton MD - Last Filed: 09/05/25 03:49> Time of Disposition: 09:09 <Jarrod Linton MD - Last Filed: 09/05/25 03:49> 09:09 <Rakesh Heath MD - Last Filed: 09/04/25 09:10>
[2025-09-04] MEDS: METOCLOPRAMIDE HCL INJ 10 MG/2 ML VIAL IV PUSH (05:46)
[2025-09-04] MEDS: LACTATED RINGERS 1,000 ML 999 ML IV CONT ×2 (05:46→06:54)
[2025-09-04] MEDS: FAMOTIDINE 20 MG/2 ML VIAL IV PUSH ×2 (05:53→21:21)
[2025-09-04 06:15] LABS: Hematocrit 50.9 % (42.0-52.0); Hemoglobin 18.0 g/dL (14.0-18.0); Immature Granulocyte Percent A 0.3 % (0-0.5); Lymphocytes Absolute Auto 1.29 K/mm3 (0.9-3.2); Mean Corpuscular HGB Conc 35.4 g/dl (32-36); Mean Corpuscular Hemoglobin 31.8 pg (26-34); Mean Corpuscular Volume 89.9 fl (80-100); Nucleated Red Blood Cells Absolute Auto 0.000 K/mm3 (0.0-0.012); Nucleated Red Blood Cells Perc 0.0 % (0.0-0.2); Platelet Count Result 339 k/mm3 (150-375); Red Blood Count 5.66 M/mm3 (4.6-6.20); White Blood Count 12.0 K/mm3 (4.5-10.0)
[2025-09-04 06:27] LABS: Alanine Aminotransferase 17 U/L (6-50); Albumin Level 4.8 g/dL (3.5-5.1); Alkaline Phosphatase 77 U/L (38-126); Anion Gap 13 mmol/L (4-12); Aspartate Amino Transferase 34 U/L (17-59); Bilirubin,Total 1.4 mg/dL (0.2-1.3); Blood Urea Nitrogen 14 mg/dL (9-20); Calcium 9.8 mg/dL (8.4-10.2); Carbon Dioxide 32 mmol/L (22-30); Chloride 88 mmol/L (98-107); Estimated CRCL calculation 78 ml/min; Estimated Glomerular Filt Rate > 60; Glucose 130 mg/dL (65-110); Lipase 100 U/L (23-300); Magnesium 1.8 mg/dL (1.6-2.3); Potassium 3.5 mmol/L (3.4-5.0); Sodium 133 mmol/L (137-145); Total Protein 8.7 g/dL (6.3-8.2)
--- NOTE | 2025-09-04 09:02 | PM.IMHP ---
H&P: HPI History of Present Illness Date/Time: 09/04/25 09:02 Chief Complaint: Abdominal pain, vomiting Narrative: This is a 35-year-old male who underwent robotic assisted bilateral inguinal hernia repair with mesh by Dr. Garrison on 08/28/25. He presented to the ED with diffuse abdominal pain on postop day 3 (08/31/25) and CT at that time showed a possible ileus. He also had a fair amount of stool on CT. He was given Relistor and an enema in the ER. He had some bowel movements and his symptoms improved, so he was discharged home with Bentyl, Miralax BID, and recommendations to minimize narcotics. He reports after going home, he tried eating later in the day and began vomiting again. He continues to have issues with nausea, vomiting, bloating, and intermittent diffuse abdominal pain. His symptoms would improve after vomiting. He reports being able to keep some liquids down but has not been able to tolerate any solid foods for at least the past 4-5 days. He was taking his medications from the ER, but would often times throw up after taking them. He was vomiting at least 5 times or more in a day. He started to notice his emesis appearing brown. He has been passing very little flatus and his last BM was 1-2 days ago. He reports his abdominal pain has been getting worse and he was concerned about the persistent vomiting, therefore he came into the ED for evaluation early this morning. Vital signs are stable, BP elevated at 153/97. Labs showed WBC count 12,000, Hgb 18, sodium 133, chloride 88, CO2 32, glucose 130, anion gap 13, total bilirubin 1.4. UA negative for UTI, specific gravity >1.045. CT scan of the abdomen and pelvis repeated and showed dilated small bowel, which may be adynamic ileus or less likely distal SBO. Our service was contacted by the ED physician and he is now seen in the ED. He denies any previous small bowel obstructions. No other abdominal surgeries other than his recent inguinal hernia repair. He appears comfortable and reports he is not having much abdominal pain at this time. He still feels nauseous and bloated. Review of Systems Review of Systems: All systems reviewed & are unremarkable except as noted in HPI and below PMFSH Past Medical History Medical History (Updated 09/04/25 @ 09:24 by Lennie Og APRN) Hx of anxiety disorder Surgical History Surgical History (Updated 09/04/25 @ 09:24 by Lennie Og APRN) History of bilateral inguinal hernia repair Social History Social History Smoking status: Former smoker Tobacco type: cigars Smoking end date: 08/27/24 Additional smoking assessment comments: Black and milds one a day. Alcohol intake: never Substance use: never Substance use type: marijuana Other substance usage details: Medical card for rene sweets. 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 Spiritual care concerns: No Meds Home Medications and Allergies Home Medications ?Medication ?Instructions ?Recorded ?Confirmed ?Type docusate sodium 100 mg capsule 100 mg PO BID #20 caps 08/28/25 Rx (Colace) hydrocodone 5 mg-acetaminophen 325 1 tablet PO Q6H PRN pain #20 tabs 08/28/25 Rx mg tablet dicyclomine 20 mg tablet 20 mg PO QID #20 tabs 08/31/25 Rx polyethylene glycol 3350 17 17 g PO BID #119 grams 08/31/25 Rx gram/dose oral powder (Miralax) ondansetron 4 mg disintegrating 4 mg PO Q6H PRN nausea and 09/03/25 Rx tablet vomiting #10 tabs Allergies Allergy/AdvReac Type Severity Reaction Status Date / Time aspirin Allergy Unknown Verified 09/04/25 05:28 Vital Signs Vital Signs - 24 hr 09/04/25 05:36 09/04/25 05:42 09/04/25 06:49 Temperature 98.1 F 98.1 F Pulse Rate 91 92 79 Respiratory Rate 19 15 20 Blood Pressure 149/97 H 149/97 H 153/97 H Pulse Oximetry 98 98 100 Oxygen Delivery Room Air Exam Const: General: comfortable and no acute distress Nutritional Appearance: average body habitus Orientation/consciousness: patient oriented x3 HENMT: Head: normocephalic and atraumatic Ears: hearing grossly normal bilaterally Mouth: Yes moist mucous membranes Eyes: General: appearance normal, both eyes and all related structures Pupils: Equal, round and reactive pupils present Neck: Neck: normal visual inspection and full ROM Resp: Effort & Inspection: no respiratory distress Auscultation: clear to auscultation bilaterally Cardio: Rate: regular rate Rhythm: regular rhythm Peripheral pulses: Peripheral pulses 2+ throughout GI: Inspection: distended and incision (port site incisions healing well, dry and glue intact, no erythema) GI Palp: Yes Soft to palpation, Yes Tenderness to palpation present (GI) (mild tenderness in the epigastric and LUQ also near his incisions), No Guarding due to palpation present (GI), No Hernia present and No Rebound tenderness present Percussion: Yes tympanic to percussion Auscultation: Hyperactive bowel sounds present Rectal Exam: deferred Skin: General skin exam: normal color Neuro: General: moves all extremities and no focal motor deficits Speech: normal speech Motor exam (neuro): 5/5 motor strength present throughout Extrem: General: normal to inspection and no edema Psych: Mental Status: mental status grossly normal Attitude: cooperative Insight: Good insight present (Psych) Judgement: Good judgement present (Psych) H&P: Results Labs Labs: Short CBC 09/04/25 Range/Units 05:47 WBC 12.0 H (4.5-10.0) K/mm3 Hgb 18.0 D (14.0-18.0) g/dL Hct 50.9 (42.0-52.0) % Plt Count 339 (150-375) k/mm3 BMP 09/04/25 05:47 Sodium 133 L Potassium 3.5 Chloride 88 L Carbon Dioxide 32 H BUN 14 Creatinine 1.15 Glucose 130 H Calcium 9.8 Liver Function 09/04/25 Range/Units 05:47 Total Bilirubin 1.4 H (0.2-1.3) mg/dL AST 34 (17-59) U/L ALT 17 (6-50) U/L Alkaline Phosphatase 77 (38-126) U/L Albumin 4.8 (3.5-5.1) g/dL Imaging CT scan - abdomen: Radiologist's impression: ITS Impressions Abdomen/Pelvis CT 09/04/25 07:02 IMPRESSION: 1. Dilated small bowel, which may be adynamic ileus or less likely distal small bowel obstruction. Assessment and Plan Assessment and plan (1) Postoperative ileus: Code(s): K91.89 - Other postprocedural complications and disorders of digestive system; K56.7 - Ileus, unspecified Status: Suspected Assessment and Plan: This is the patient's second ER visit following his robotic bilateral inguinal hernia repair 1 week ago. He continues to have diffuse abdominal pain and is now having more vomiting. His repeat CT scan suggests postoperative ileus versus possible small bowel obstruction. His small bowel looks more dilated compared to his last CT scan on Monday and he no longer appears constipated. Although postoperative ileus is likely, there is certainly the possibility that he could have a small bowel obstruction related to intraabdominal adhesions. He was feeling better by the time I saw him in the ER and wasn't having much abdominal pain. His abdomen does appear distended and he is mildly tender in the upper abdomen. No peritoneal signs on exam. We would recommend initiating conservative management with NG tube decompression, bowel rest, and IV fluids. Will also have analgesics available as needed, but would recommend minimizing use of narcotics. Will continue to monitor with serial abdominal exams and imaging. (2) Acute dehydration: Code(s): E86.0 - Dehydration Status: Acute Assessment and Plan: Patient appears dehydrated likely related to volume depletion/vomiting. Will start IV fluids for hydration and repeat labs tomorrow morning. (3) History of bilateral inguinal hernia repair: Code(s): Z98.890 - Other specified postprocedural states; Z87.19 - Personal history of other diseases of the digestive system Status: Resolved Assessment and Plan: 1 week postop following robotic bilateral inguinal hernia repair with mesh by Dr. Garrison. Plan I have discussed the patient's case and plan of care with Dr. Potts.
[2025-09-04] MEDS: MORPHINE SULFATE (*CRX) 4 MG/ML INJ 2 MG IV PUSH ×3 (09:19→21:21)
[2025-09-04] MEDS: ONDANSETRON INJ 4 MG/2 ML VIAL IV PUSH ×2 (09:22→17:58)
[2025-09-04] MEDS: KCL 20 MEQ/D5/0.9% SOD CHL 1,000 ML 125 ML IV CONT ×2 (12:37→21:33)
--- NOTE | 2025-09-04 13:39 | ADMGEN ---
This patient, Darrick Hidalgo, was admitted to 3 [facility] Surg Room 315-01. Patient/family oriented to hospital policies and general routines including ID bracelet, bed and alarms, visiting hours, pain management, procedures, bathroom and other care routines, personal items, smoking policy, room service/diet, and visiting hours. Information on how to activate the Rapid Response Team has been discussed. Patient/Family are encouraged to report perceived risks to care and to ask questions if they do not understand what they are told or what they should do. received report from stuart.
--- NOTE | 2025-09-04 18:30 | PC.NURSE ---
This RN, Mirna Meraz, made x2 attempts to re-insert NG tube that was involuntarily removed when patient had vomiting episode this afternoon. RN, Yasmin Tanner also made an attempt to re-insert without success. Provider, Dr. Potts of General Surgery was notified at 1830 of reinsertion failure; provider OK with no NG tube at this time, will see pt in AM to re-evaluate.
[2025-09-05] VITALS (11 sets, daily range): BP systolic 138–154; BP diastolic 86–99; PULSE 77–93; RESP 16–24; TEMP 36.5–37.4; O2SAT 98–100; BMI 23.2
[2025-09-05 06:21] LABS: Hematocrit 42.1 % (42.0-52.0); Hemoglobin 14.6 g/dL (14.0-18.0); Immature Granulocyte Percent A 0.3 % (0-0.5); Lymphocytes Absolute Auto 1.54 K/mm3 (0.9-3.2); Mean Corpuscular HGB Conc 34.7 g/dl (32-36); Mean Corpuscular Hemoglobin 31.8 pg (26-34); Mean Corpuscular Volume 91.7 fl (80-100); Nucleated Red Blood Cells Absolute Auto 0.000 K/mm3 (0.0-0.012); Nucleated Red Blood Cells Perc 0.0 % (0.0-0.2); Platelet Count Result 301 k/mm3 (150-375); Red Blood Count 4.59 M/mm3 (4.6-6.20); White Blood Count 6.0 K/mm3 (4.5-10.0)
[2025-09-05] MEDS: KCL 20 MEQ/D5/0.9% SOD CHL 1,000 ML 125 ML IV CONT ×2 (06:38→18:53)
[2025-09-05] MEDS: MORPHINE SULFATE (*CRX) 4 MG/ML INJ 2 MG IV PUSH (06:42)
[2025-09-05 06:44] LABS: Anion Gap 4 mmol/L (4-12); Blood Urea Nitrogen 7 mg/dL (9-20); Calcium 8.6 mg/dL (8.4-10.2); Carbon Dioxide 33 mmol/L (22-30); Chloride 98 mmol/L (98-107); Estimated CRCL calculation 85 ml/min; Estimated Glomerular Filt Rate > 60; Glucose 103 mg/dL (65-110); Potassium 3.9 mmol/L (3.4-5.0); Sodium 135 mmol/L (137-145)
--- NOTE | 2025-09-05 08:20 | P.PNGS_ITS ---
Progress Note: A&P Assessment and Plan (1) Postoperative ileus: Code(s): K91.89 - Other postprocedural complications and disorders of digestive system; K56.7 - Ileus, unspecified Status: Suspected Assessment and Plan: -Patient presented with postoperative ileus vs SBO. He has not passed flatus or had a BM. Ice chips have made his pain worse. His abdomen remains distended. He briefly had NGT in place, but states it came out when he gagged yesterday. This was attempted to be replaced 3 times, but the patient says he cannot tolerate it. He does not appear to be progressing without the NGT. I have extensively discussed with the patient why the NGT is the treatment for his acute illness, however he continues to refuse. -Continue to recommend NGT -SBFT would likely be futile without decompression -Will continue discussions about treatment, however if patient continues to refuse treatment he may DC A&P discussed with Dr. Potts (2) Postoperative abdominal pain: Code(s): R10.9 - Unspecified abdominal pain; G89.18 - Other acute postprocedural pain Status: Acute (3) Postoperative nausea: Code(s): R11.0 - Nausea; Z98.890 - Other specified postprocedural states Status: Acute (4) History of bilateral inguinal hernia repair: Code(s): Z98.890 - Other specified postprocedural states; Z87.19 - Personal history of other diseases of the digestive system Status: Resolved Subjective Subjective Date/Time Seen: 09/05/25 08:20 Interval history: NGT removed over interval after patient states he had multiple episodes of gagging. Was attempted to be replaced and patient states he cannot tolerate the NGT. His abdomen remains distended. Not passing flatus or having BMs. Says ice chips made his pain worse. WBC WNL today. Review of Systems Review of Systems: All systems reviewed & are unremarkable except as noted in HPI and below Exam Const: General: comfortable and no acute distress Nutritional Appearance: average body habitus Orientation/consciousness: patient oriented x3 HENMT: Head: normocephalic and atraumatic Ears: hearing grossly normal bilaterally Mouth: Yes moist mucous membranes Eyes: General: appearance normal, both eyes and all related structures Pupils: Equal, round and reactive pupils present Neck: Neck: normal visual inspection and full ROM Resp: Effort & Inspection: no respiratory distress Auscultation: clear to auscultation bilaterally Cardio: Rate: regular rate Rhythm: regular rhythm Peripheral pulses: Peripheral pulses 2+ throughout GI: Inspection: distended and incision (port site incisions healing well, dry and glue intact, no erythema) GI Palp: Yes Soft to palpation, Yes Tenderness to palpation present (GI) (mild tenderness in the epigastric and LUQ also near his incisions), No Guarding due to palpation present (GI), No Hernia present and No Rebound tenderness present Percussion: Yes tympanic to percussion Rectal Exam: deferred Skin: General skin exam: normal color Neuro: General: moves all extremities and no focal motor deficits Speech: normal speech Motor exam (neuro): 5/5 motor strength present throughout Extrem: General: normal to inspection and no edema Psych: Mental Status: mental status grossly normal Attitude: cooperative Insight: Good insight present (Psych) Judgement: Good judgement present (Psyc h) Objective Data Vital Signs Vital Signs: Vital Signs - 24 hr 09/04/25 09:15 09/04/25 11:00 09/04/25 13:54 Temperature 98.8 F 98.1 F Pulse Rate 82 81 Respiratory Rate 16 16 Blood Pressure 149/95 H 137/82 Pulse Oximetry 100 99 Oxygen Delivery Room Air 09/04/25 19:38 09/04/25 21:46 09/04/25 23:21 Temperature 97.9 F Pulse Rate 87 Respiratory Rate 18 Blood Pressure 144/86 H Pulse Oximetry 100 99 Oxygen Delivery Room Air Room Air 09/05/25 06:00 Temperature 97.7 F Pulse Rate 79 Respiratory Rate 16 Blood Pressure 143/88 H Pulse Oximetry 99 Oxygen Delivery Intake/Output Intake/Output: Intake & Output 09/02/25 09/03/25 09/04/25 09/05/25 23:59 23:59 23:59 23:59 Intake Total 3000 1300 Output Total 200 Balance 2800 1300 Meds/Results Medications: Active Medications Generic Name Dose Route Start Last Admin Trade Name Freq PRN Reason Stop Dose Admin Enoxaparin Sodium 40 mg 09/05/25 09:00 Enoxaparin 40 Mg/0.4 Ml Syringe SUB-Q DAILY MANDA Famotidine 20 mg 09/04/25 21:00 09/04/25 21:21 Famotidine 20 Mg/2 Ml Vial IV PUSH 20 mg Q12HR MANDA Administration Potassium Chloride/Dextrose/Sod Cl 1,000 mls @ 125 mls/hr 09/04/25 10:00 09/05/25 06:38 Kcl 20 Meq/D5/0.9% Sod Chl IV CONT 125 mls/hr .Q8H MANDA Administration Morphine Sulfate 2 mg 09/04/25 09:10 09/05/25 06:42 Morphine Sulfate (*Crx) 4 Mg/Ml Inj IV PUSH 2 mg Q2H PRN Administration Pain Rated 4-6 Morphine Sulfate 4 mg 09/04/25 10:02 Morphine Sulfate (*Crx) 4 Mg/Ml Inj IV PUSH Q2H PRN Pain Rated 7-10 Ondansetron HCl 4 mg 09/04/25 09:10 09/04/25 17:58 Ondansetron Inj 4 Mg/2 Ml Vial IV PUSH 4 mg Q4H PRN Administration Nausea Phenol 1 spray 09/04/25 16:44 Phenol/Sod Pheno [place] (*Bkc) MUCOUS MEM PRN PRN Sore Throat Radiology Results: ITS Impressions Abdomen/Pelvis CT 09/04/25 07:02 IMPRESSION: 1. Dilated small bowel, which may be adynamic ileus or less likely distal small bowel obstruction. Abdomen X-Ray 09/04/25 10:31 Impression: 1. Small bowel obstruction Labs Labs: Laboratory Results - last 24 hr 09/05/25 05:34 WBC 6.0 RBC 4.59 L Hgb 14.6 D Hct 42.1 MCV 91.7 MCH 31.8 MCHC 34.7 RDW 11.9 Plt Count 301 MPV 9.0 Immature Gran % (Auto) 0.3 Neut % (Auto) 53.4 Lymph % (Auto) 25.8 [place] % (Auto) 18.9 H Eos % (Auto) 0.8 Baso % (Auto) 0.8 Lymph # (Auto) 1.54 [place] # (Auto) 1.1 H Eos # (Auto) 0.1 Baso # (Auto) 0.1 Abs Immat Gran (auto) 0.02 Absolute Neuts (auto) 3.2 Absolute Nucleated RBC 0.000 Nucleated RBC % 0.0 Sodium 135 L Potassium 3.9 Chloride 98 Carbon Dioxide 33 H Anion Gap 4 BUN 7 L D Creatinine 1.05 Estim Creat Clear Calc 85 Estimated GFR > 60 Glucose 103 Calcium 8.6
[2025-09-05] MEDS: FAMOTIDINE 20 MG/2 ML VIAL IV PUSH ×2 (09:59→21:08)
[2025-09-05] MEDS: ENOXAPARIN 40 MG/0.4 ML SYRINGE SUB-Q (09:59)
[2025-09-05] MEDS: LACTATED RINGERS 1,000 ML 150 ML IV CONT (13:57)
--- NOTE | 2025-09-05 14:46 | WPDANESEPPF ---
Anes - Initial Pre Proc Eval Procedure: Operation Date: 09/05/25 15:00 Proposed Procedures p Esophagogastroduodenoscopy with NG tube placement - Mario Ibarra MD Date/Time: 09/05/25 14:46 Surgeon: Ger Potts MD Pre Op Diagnosis: Abdominal Pain, Ileus Versus SBO Patient Data Age: 35 Gender: M Height: 1.73 m Weight: 69.4 kg Last Vital Signs Temp 98.1 F 09/05/25 13:53 Pulse 80 09/05/25 13:53 Resp 20 09/05/25 13:53 BP 149/90 H 09/05/25 13:53 Pulse Ox 99 09/05/25 13:53 O2 Del Method Room Air 09/05/25 13:53 Allergies Allergy/AdvReac Type Severity Reaction Status Date / Time aspirin Allergy Unknown Verified 09/05/25 13:50 Home Medications ?Medication ?Instructions ?Recorded ?Confirmed ?Type docusate sodium 100 mg capsule 100 mg PO BID #20 caps 08/28/25 09/04/25 Rx (Colace) hydrocodone 5 mg-acetaminophen 325 1 tablet PO Q6H PRN pain #20 tabs 08/28/25 09/04/25 Rx mg tablet dicyclomine 20 mg tablet 20 mg PO QID #20 tabs 08/31/25 09/04/25 Rx polyethylene glycol 3350 17 17 g PO BID #119 grams 08/31/25 09/04/25 Rx gram/dose oral powder (Miralax) ondansetron 4 mg disintegrating 4 mg PO Q6H PRN nausea and 09/03/25 09/04/25 Rx tablet vomiting #10 tabs Laboratory Tests 09/05/25 05:34 WBC 6.0 K/mm3 (4.5-10.0) RBC 4.59 L M/mm3 (4.6-6.20) Hgb 14.6 D g/dL (14.0-18.0) Hct 42.1 % (42.0-52.0) MCV 91.7 fl (80-100) MCH 31.8 pg (26-34) MCHC 34.7 g/dl (32-36) RDW 11.9 % (11.5-14.5) Plt Count 301 k/mm3 (150-375) MPV 9.0 fl (7.4-10.4) Immature Gran % (Auto) 0.3 % (0-0.5) Neut % (Auto) 53.4 % (45.5-73.1) Lymph % (Auto) 25.8 % (18.3-44.2) [place] % (Auto) 18.9 H % (2.6-8.5) Eos % (Auto) 0.8 % (0-4.4) Baso % (Auto) 0.8 % (0.2-1.2) Lymph # (Auto) 1.54 K/mm3 (0.9-3.2) [place] # (Auto) 1.1 H K/mm3 (0.1-0.6) Eos # (Auto) 0.1 K/mm3 (0-0.3) Baso # (Auto) 0.1 K/mm3 (0.0-0.1) Abs Immat Gran (auto) 0.02 K/mm3 (0.00-0.031) Absolute Neuts (auto) 3.2 K/mm3 (1.3-6.7) Absolute Nucleated RBC 0.000 K/mm3 (0.0-0.012) Nucleated RBC % 0.0 % (0.0-0.2) Sodium 135 L mmol/L (137-145) Potassium 3.9 mmol/L (3.4-5.0) Chloride 98 mmol/L (98-107) Carbon Dioxide 33 H mmol/L (22-30) Anion Gap 4 mmol/L (4-12) BUN 7 L D mg/dL (9-20) Creatinine 1.05 mg/dL (0.7-1.3) Estim Creat Clear Calc 85 ml/min Estimated GFR > 60 (59 - ) Glucose 103 mg/dL (65-110) Calcium 8.6 mg/dL (8.4-10.2) Patient hx anesthesia problems: none Family hx anesthesia problems: none Results Review: All pre-operative results and documents have been reviewed as part of the pre-operative evaluation. [facility] Past Medical History Medical History Hx of anxiety disorder Surgical History Surgical History History of bilateral inguinal hernia repair robotic assisted bilateral inguinal hernia repair with mesh 08/28 Dr. abreu Social History Social History Smoking status: Former smoker Additional smoking assessment comments: Jostin and kayla one a day. Alcohol intake: never Substance use: never Substance use type: marijuana Other substance usage details: Medical card for rene sweets for anxiety Lack of Transportation: No Lack of Food: Never True Current Housing: I Have Housing Concerned About Future Housing: No Difficulty Paying Gas/Electric Bills: No Difficulty Paying for Meds: No Currently Unemployed: No Education: Decline to Answer Difficulty w/ Childcare or Family Care: No Living arrangements: with family Occupation/Education: occupation Additional occupation/education comments: [employer] Spiritual care concerns: No Anes - Eval Final PreProcedure Day of Procedure 09/05/25 14:46 Patient weight: normal Lungs: normal air movement Airway: Mallampati scale class II and special considerations (Large chips on upper incisors. ) Neurological: alert and oriented Last oral intake: >/= 8 hours ASA classification: II Emergent: yes Anesthetic plan: proceed Anesthesia type and monitoring: general ETT and standard monitoring Results Review: All pre-operative results and documents have been reviewed as part of the pre-operative evaluation. Anxiety, cannabis user daily, very active,, now w SBO post op and unable to tolerate a NG placement by primary team. Informed Consent: The patient's anesthetic plan and its attendant risks and benefits were discussed with the patient/family/POA. Questions were solicited and answers provided to the satisfaction of the patient/family/POA.
--- NOTE | 2025-09-05 15:36 | WPDGICN ---
Assessment and Plan Assessment and plan (1) Postoperative ileus: Code(s): K91.89 - Other postprocedural complications and disorders of digestive system; K56.7 - Ileus, unspecified Status: Suspected Assessment and Plan: See endoscopy report. NG tube placed successfully. It can be now use for GI decompression. GI Consult Note Consult date/time: 09/05/25 15:36 Reason for consult: NG tube placement HPI: Darrick Hidalgo is a 35 year old male admitted with a small bowel obstruction, after having a laparoscopic hernia repair approximately 1 week ago. Multiple attempts have been made to place NG tube unsuccessfully. We are requested to pass the NG tube with anesthesia assistance and direct vision. Review of Systems Review of Systems: All systems reviewed & are unremarkable except as noted in HPI and below PMFSH Past Medical History Medical History Hx of anxiety disorder Surgical History Surgical History History of bilateral inguinal hernia repair robotic assisted bilateral inguinal hernia repair with mesh 08/28 Dr. abreu Social History Social History Smoking status: Former smoker Additional smoking assessment comments: Porfirio one a day. 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 care concerns: No Meds Home Medications and Allergies Home Medications ?Medication ?Instructions ?Recorded ?Confirmed ?Type docusate sodium 100 mg capsule 100 mg PO BID #20 caps 08/28/25 09/04/25 Rx (Colace) hydrocodone 5 mg-acetaminophen 325 1 tablet PO Q6H PRN pain #20 tabs 08/28/25 09/04/25 Rx mg tablet dicyclomine 20 mg tablet 20 mg PO QID #20 tabs 08/31/25 09/04/25 Rx polyethylene glycol 3350 17 17 g PO BID #119 grams 08/31/25 09/04/25 Rx gram/dose oral powder (Miralax) ondansetron 4 mg disintegrating 4 mg PO Q6H PRN nausea and 09/03/25 09/04/25 Rx tablet vomiting #10 tabs Allergies Allergy/AdvReac Type Severity Reaction Status Date / Time aspirin Allergy Unknown Verified 09/05/25 13:50 Vital Signs Vital Signs - 24 hr 09/04/25 19:38 09/04/25 21:46 09/04/25 23:21 Temperature 97.9 F Pulse Rate 87 Respiratory Rate 18 Blood Pressure 144/86 H Pulse Oximetry 100 99 Oxygen Delivery Room Air Room Air 09/05/25 06:00 09/05/25 08:00 09/05/25 13:53 Temperature 97.7 F 98.1 F Pulse Rate 79 80 Respiratory Rate 16 20 Blood Pressure 143/88 H 149/90 H Pulse Oximetry 99 99 Oxygen Delivery Room Air Room Air Exam Const: General: cooperative and healthy appearing Resp: Effort & Inspection: normal respiratory effort and able to speak in complete sentences Auscultation: clear to auscultation bilaterally Cardio: Rate: regular rate Rhythm: regular rhythm GI: Inspection: normal to inspection GI Palp: No No hepatosplenomegaly present Auscultation: normal bowel sounds Rectal Exam: deferred Skin: General skin exam: normal color Psych: Appearance: grossly normal Mental Status: mental status grossly normal Results Labs 09/05/25 05:34 09/05/25 05:34 Labs: Short CBC 09/05/25 Range/Units 05:34 WBC 6.0 (4.5-10.0) K/mm3 Hgb 14.6 D (14.0-18.0) g/dL Hct 42.1 (42.0-52.0) % Plt Count 301 (150-375) k/mm3 BMP 09/05/25 05:34 Sodium 135 L Potassium 3.9 Chloride 98 Carbon Dioxide 33 H BUN 7 L D Creatinine 1.05 Glucose 103 Calcium 8.6
--- NOTE | 2025-09-05 16:12 | SUR.PHASEII ---
NG tube coiled on X ray. Dr. Ibarra viewed at bedside. Orders to withdrawal tube 20cm. NG tube at 65 cm confirmed by X ray by Dr. Ibarra.
[2025-09-05] MEDS: diazePAM INJ (*CRX) 10 MG/2 ML SYRINGE IV PUSH ×2 (18:03→23:12)
[2025-09-05] MEDS: IBUPROFEN IV 800 MG/200 ML 800 MG/200 ML BAG 400 MG IVPB ×2 (18:06→22:29)
[2025-09-06] MEDS: diazePAM INJ (*CRX) 10 MG/2 ML SYRINGE IV PUSH ×2 (03:02→07:41)
[2025-09-06] MEDS: IBUPROFEN IV 800 MG/200 ML 800 MG/200 ML BAG IVPB ×3 (03:51→23:07)
[2025-09-06 04:06] VITALS: BP 154/98; PULSE 83; RESP 20; TEMP 36.9; O2SAT 99
[2025-09-06] MEDS: KCL 20 MEQ/D5/0.9% SOD CHL 1,000 ML 100 ML IV CONT ×2 (05:48→15:45)
[2025-09-06 07:29] LABS: Hematocrit 40.7 % (42.0-52.0); Hemoglobin 13.8 g/dL (14.0-18.0); Mean Corpuscular HGB Conc 33.9 g/dl (32-36); Mean Corpuscular Hemoglobin 31.9 pg (26-34); Mean Corpuscular Volume 94.0 fl (80-100); Platelet Count Result 322 k/mm3 (150-375); Red Blood Count 4.33 M/mm3 (4.6-6.20); White Blood Count 7.2 K/mm3 (4.5-10.0)
[2025-09-06 07:40] LABS: Anion Gap 6 mmol/L (4-12); Blood Urea Nitrogen 7 mg/dL (9-20); Calcium 8.5 mg/dL (8.4-10.2); Carbon Dioxide 27 mmol/L (22-30); Chloride 102 mmol/L (98-107); Estimated CRCL calculation 106 ml/min; Estimated Glomerular Filt Rate > 60; Glucose 88 mg/dL (65-110); Potassium 4.1 mmol/L (3.4-5.0); Sodium 135 mmol/L (137-145)
[2025-09-06 08:00] VITALS: PULSE 83; RESP 20; O2SAT 99
[2025-09-06] MEDS: FAMOTIDINE 20 MG/2 ML VIAL IV PUSH ×2 (08:00→20:30)
[2025-09-06] MEDS: ENOXAPARIN 40 MG/0.4 ML SYRINGE SUB-Q (08:01)
--- NOTE | 2025-09-06 12:14 | P.PNGS_ITS ---
Progress Note: A&P Assessment and Plan (1) Small bowel obstruction: Code(s): K56.609 - Unspecified intestinal obstruction, unspecified as to partial versus complete obstruction Status: Acute Assessment and Plan: By imaging and exam, does not appear small-bowel obstruction has yet resolved. I think patient for leaving the NG tube through the night and strongly encouraged him to leave it in until the obstruction has resolved. He wanted to proceed with surgery but I reminded him that, with surgery, he would likely need the nasogastric tube in place for another 5 or 6 days after surgery. Continue present treatment. (2) Anxiety about treatment: Code(s): R45.89 - Other symptoms and signs involving emotional state Status: Acute Assessment and Plan: Will consult hospitalist. I talked to Dr. Louie and explained the situation to him. Patient could take p.o. med with sip of water and clamp NG tube for 30 or 45 minutes if needed. Not sure he would go along with this but it appears additional medication as needed. (3) History of bilateral inguinal hernia repair: Code(s): Z98.890 - Other specified postprocedural states; Z87.19 - Personal history of other diseases of the digestive system Status: Chronic Assessment and Plan: No evidence of complications from the surgery. By imaging, the bowel ob struction does not appear to be related to the hernia repair. Subjective Subjective Date/Time Seen: 09/06/25 12:14 Patient reports: voiding w/o difficulty, no bowel movement, afebrile and other (Very anxious and wants to remove his NG tube. Feels like he is going to have to take it out, that he can not stand it any longer.) Review of Systems Review of Systems: All systems reviewed & are unremarkable except as noted in HPI and below (HPI) Exam Const: General: no acute distress, alert, awake and anxious GI: Inspection: distended, incision (Healing nicely), scaphoid and no visible herniation GI Palp: Yes Firmness to palpation present (GI), Yes Tenderness to palpation present (GI), No Hernia present and No Palpable mass present Auscultation: Hypoactive bowel sounds present Objective Data Vital Signs Vital Signs: Vital Signs - 24 hr 09/05/25 13:53 09/05/25 15:34 09/05/25 15:44 Temperature 36.7 C 36.8 C Pulse Rate 80 82 77 Respiratory Rate 20 24 H 20 Blood Pressure 149/90 H 144/94 H 144/97 H Pulse Oximetry 99 100 100 Oxygen Delivery Room Air Simple Face Mask Simple Face Mask Oxygen Flow Rate 8 8 09/05/25 15:54 09/05/25 16:04 09/05/25 16:14 Temperature Pulse Rate 87 89 93 Respiratory Rate 20 21 H 21 H Blood Pressure 138/94 H 142/96 H 151/95 H Pulse Oximetry 100 98 99 Oxygen Delivery Simple Face Mask Room Air Room Air Oxygen Flow Rate 4 09/05/25 16:24 09/05/25 16:43 09/05/25 17:34 Temperature 36.5 C 36.6 C Pulse Rate 82 81 88 Respiratory Rate 21 H 20 21 H Blood Pressure 142/99 H 138/86 154/94 H Pulse Oximetry 100 98 100 Oxygen Delivery Room Air Oxygen Flow Rate 09/05/25 20:21 09/05/25 21:08 09/06/25 04:06 Temperature 37.4 C 36.9 C Pulse Rate 89 83 Respiratory Rate 20 20 Blood Pressure 143/88 H 154/98 H Pulse Oximetry 99 99 Oxygen Delivery Room Air Oxygen Flow Rate 09/06/25 08:00 Temperature Pulse Rate 83 Respiratory Rate 20 Blood Pressure Pulse Oximetry 99 Oxygen Delivery Room Air Oxygen Flow Rate Intake/Output Intake/Output: Intake & Output 09/03/25 09/04/25 09/05/25 09/06/25 23:59 23:59 23:59 23:59 Intake Total 3000 3066.7 675 Output Total 200 200 850 Balance 2800 2866.7 -175 850 cc per NG tube since midnight, still a lot in the canister. Meds/Results Medications: Active Medications Generic Name Dose Route Start Last Admin Trade Name Freq PRN Reason Stop Dose Admin Acetaminophen 650 mg 09/05/25 17:44 Acetaminophen 650 Mg Suppository RECTAL Q6H PRN Mild Pain (1-3) or Fever Diazepam 2.5 - 5 mg 09/05/25 23:05 09/06/25 07:41 Diazepam Inj (*Crx) 10 Mg/2 Ml Syringe IV PUSH 5 mg Q4H PRN Administration Anxiety Enoxaparin Sodium 40 mg 09/05/25 09:00 09/06/25 08:01 Enoxaparin 40 Mg/0.4 Ml Syringe SUB-Q 40 mg DAILY MANDA Administration Famotidine 20 mg 09/04/25 21:00 09/06/25 08:00 Famotidine 20 Mg/2 Ml Vial IV PUSH 20 mg Q12HR MANDA Administration Potassium Chloride/Dextrose/Sod Cl 1,000 mls @ 100 mls/hr 09/04/25 10:00 09/06/25 05:48 Kcl 20 Meq/D5/0.9% Sod Chl IV CONT 100 mls/hr .Q10H MANDA Administration Ibuprofen 800 mg in 200 mls @ 400 mls/hr 09/05/25 20:54 09/06/25 03:51 Caldolor 800 Mg/200 Ml IVPB 5 mls/hr Q6H PRN Administration Pain Rated 4-6 Ondansetron HCl 4 mg 09/04/25 09:10 09/04/25 17:58 Ondansetron Inj 4 Mg/2 Ml Vial IV PUSH 4 mg Q4H PRN Administration Nausea Phenol 1 spray 09/04/25 16:44 Phenol/Sod Pheno [place] Col[place] (*Bkc) MUCOUS MEM PRN PRN Sore Throat Radiology Results: ITS Impressions Abdomen/Pelvis CT 09/04/25 07:02 IMPRESSION: 1. Dilated small bowel, which may be adynamic ileus or less likely distal small bowel obstruction. Abdomen X-Ray 09/06/25 11:15 IMPRESSION: 1. No significant change. Dilated small bowel loops persist. Labs Labs: Laboratory Results - last 24 hr 09/04/25 09/06/25 05:45 05:55 WBC 7.2 RBC 4.33 L Hgb 13.8 L Hct 40.7 L MCV 94.0 MCH 31.9 MCHC 33.9 RDW 12.0 Plt Count 322 MPV 9.0 Sodium 135 L Potassium 4.1 Chloride 102 Carbon Dioxide 27 Anion Gap 6 BUN 7 L Creatinine 0.83 Estim Creat Clear Calc 106 Estimated GFR > 60 Glucose 88 Calcium 8.5 Urine Color Cancelled Urine Appearance Cancelled Urine pH Cancelled Ur Specific [place] Cancelled Urine Protein Cancelled Urine Glucose (UA) Cancelled Urine Ketones Cancelled Ur Blood (Man) Cancelled Urine Nitrate Cancelled Urine Bilirubin Cancelled Urine Urobilinogen Cancelled Add Ur Microanalysis Cancelled Leukocyte Esterase Rfl Cancelled Urine RBC Cancelled Urine WBC Cancelled Urine WBC Clumps Cancelled Ur Squamous Epith Cells Cancelled Ur Transition Epith Cell Cancelled Ur Renal Epithelial Cell Cancelled [place] Biurate Crystals Cancelled Calcium Carbonate Cryst Cancelled Calcium Phosphate Cryst Cancelled Calcium Oxalate Crystal Cancelled Leucine Crystals Cancelled Cystine Crystals Cancelled Uric Acid Crystals Cancelled Triple Phos Crystals Cancelled Sulfonamide Crystals Cancelled Cholesterol Crystals Cancelled Talc Crystals Cancelled Tyrosine Crystals Cancelled Hippuric Acid Crystals Cancelled Bilirubin Crystals Cancelled Other Crystals Cancelled Amorphous Sediment Cancelled Other Sediment Cancelled Urine Bacteria Cancelled Urine Casts Cancelled Cellular Casts Cancelled Epithelial Casts Cancelled Fatty Casts Cancelled Hyaline Casts Cancelled Granular Casts Cancelled Waxy Casts Cancelled Broad Casts Cancelled RBC Casts Cancelled WBC Casts Cancelled Urine Starch Cancelled Urine Mucus Cancelled Urine Trichomonas Cancelled Urine Yeast (Budding) Cancelled Ur Oval Fat Bodies Cancelled Sperm Presence Cancelled Imaging Attestation: I personally reviewed and interpreted this imaging study as follows: (Abdominal plain film from today) My impression: Can see nasogastric tube but bowel gas pattern looks about the same, there does seem to be more colon gas than yesterday. Radiologist's impression: Persistent small bowel obstruction
--- NOTE | 2025-09-06 12:24 | P.CONIM_ITS ---
Assessment and Plan Assessment and plan (1) Anxiety about treatment: Code(s): R45.89 - Other symptoms and signs involving emotional state Status: Acute Assessment and Plan: p.o. Ativan q.6 switch the Xanax t.i.d. (2) Small bowel obstruction: Code(s): K56.609 - Unspecified intestinal obstruction, unspecified as to partial versus complete obstruction Status: Acute Assessment and Plan: robotic assisted bilateral inguinal hernia repair with mesh by Dr. Garrison on 08/28/25 Continue with NG to low intermittent suction okay to clamped tube for walks and meds NPO sips with meds okay for ice chips try to avoid narcotics as his could make small-bowel obstruction take longer to resolve L HPI Date of Consult Consult date: 09/06/25 Requesting Physician: Ger Potts MD Primary Care Provider: PROJECT ARCHIVIST PHYSICIAN Consult Narrative Narrative: Darrick Hidalgo is a 35 year old male who underwent robotic assisted bilateral inguinal hernia repair with mesh by Dr. Garrison on 08/28/25 Presents with nausea vomiting and abdominal pain. patient was admitted on 09/04/2025 with surgery as primary With small-bowel obstruction. hospitalist team has been consulted to manage patient's anxiety related to NG tube and hospitalization. Patient was started on Ativan this afternoon however he states that he still has a lot of anxiety will switch to Xanax. Review of Systems 2 Review of Systems: 12 systems were reviewed and are negative except for as per HPI. [facility] Past Medical History Medical History Hx of anxiety disorder Surgical History Surgical History History of bilateral inguinal hernia repair robotic assisted bilateral inguinal hernia repair with mesh 08/28 Dr. garrison Social History Social History Smoking status: Former smoker Additional smoking assessment comments: Black and milds one a day. 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 care concerns: No Meds Home Medications and Allergies Home Medications ?Medication ?Instructions ?Recorded ?Confirmed ?Type docusate sodium 100 mg capsule 100 mg PO BID #20 caps 08/28/25 09/04/25 Rx (Colace) hydrocodone 5 mg-acetaminophen 325 1 tablet PO Q6H PRN pain #20 tabs 08/28/25 09/04/25 Rx mg tablet dicyclomine 20 mg tablet 20 mg PO QID #20 tabs 09/04/25 Rx polyethylene glycol 3350 17 17 g PO BID #119 grams 09/04/25 Rx gram/dose oral powder (Miralax) ondansetron 4 mg disintegrating 4 mg PO Q6H PRN nausea and 09/03/25 09/04/25 Rx tablet vomiting #10 tabs Allergies Allergy/AdvReac Type Severity Reaction Status Date / Time aspirin Allergy Unknown Verified 09/05/25 13:50 Vital Signs Vital Signs - 24 hr 09/05/25 13:53 09/05/25 15:34 09/05/25 15:44 Temperature 98.1 F 98.2 F Pulse Rate 80 82 77 Respiratory Rate 20 24 H 20 Blood Pressure 149/90 H 144/94 H 144/97 H Pulse Oximetry 99 100 100 Oxygen Delivery Room Air Simple Face Mask Simple Face Mask Oxygen Flow Rate 8 8 09/05/25 15:54 09/05/25 16:04 09/05/25 16:14 Temperature Pulse Rate 87 89 93 Respiratory Rate 20 21 H 21 H Blood Pressure 138/94 H 142/96 H 151/95 H Pulse Oximetry 100 98 99 Oxygen Delivery Simple Face Mask Room Air Room Air Oxygen Flow Rate 4 09/05/25 16:24 09/05/25 16:43 09/05/25 17:34 Temperature 97.7 F 97.9 F Pulse Rate 82 81 88 Respiratory Rate 21 H 20 21 H Blood Pressure 142/99 H 138/86 154/94 H Pulse Oximetry 100 98 100 Oxygen Delivery Room Air Oxygen Flow Rate 09/05/25 20:21 09/05/25 21:08 09/06/25 04:06 Temperature 99.4 F 98.5 F Pulse Rate 89 83 Respiratory Rate 20 20 Blood Pressure 143/88 H 154/98 H Pulse Oximetry 99 99 Oxygen Delivery Room Air Oxygen Flow Rate 09/06/25 08:00 Temperature Pulse Rate 83 Respiratory Rate 20 Blood Pressure Pulse Oximetry 99 Oxygen Delivery Room Air Oxygen Flow Rate Exam 2 Narrative: General: well appearing, appears stated age. HEENT: normocephalic, atraumatic. Mucous membranes moist. EOMI, PERRLA, bilateral sclera anicteric, no conjunctival injection. Neck supple without JVD, lymphadenopathy, or bruit. NG tube green bile Respiratory: clear bilaterally. No rales/rhonic/wheezes. Cardiovascular: Regular rate and rhythm, normal S1-S2. No murmurs, rubs, or clicks. PMI is nondisplaced, capillary refill less than 3 second. Abdomen: Firm , round, no pulsatile masses, nondistended and nontender. No rebound, no guarding. Bowel sounds present to all four quadrants. No high pitch or tinkling sounds, resonant to percussion. Extremities: No cyanosis, clubbing, or edema present. Pulses are palpable 2/2. Active ROM to all four extremities. Neuro: Alert and orientated x 4. PERRLA. Cranial nerves 2-12 intact without focal deficit. Skin: Warm, dry, and intact, without rash, erythema, or lesion. Psych: pleasant, cooperative, normal speech, normal affect, no hallucinations, no dysarthia Results Labs 09/06/25 05:55 09/06/25 05:55 Labs: Short CBC 09/06/25 Range/Units 05:55 WBC 7.2 (4.5-10.0) K/mm3 Hgb 13.8 L (14.0-18.0) g/dL Hct 40.7 L (42.0-52.0) % Plt Count 322 (150-375) k/mm3 [facility] 11/01/25 05:55 Sodium 135 L Potassium 4.1 Chloride 102 Carbon Dioxide 27 BUN 7 L Creatinine 0.83 Glucose 88 Calcium 8.5 Urine 09/04/25 Range/Units 05:45 Urine Color Cancelled Urine Appearance Cancelled Urine pH Cancelled Ur Specific [place] Cancelled Urine Protein Cancelled Urine Glucose (UA) Cancelled Quality VTE Prophylaxis VTE prophylaxis: mechanical ordered Hospitalist MIPS Advance Care Plan I have confirmed that the patient's Advanced Care Plan is present, code status is documented, or surrogate decision maker is listed in patient medical record.: Yes Medication Reconciliation I have utilized all available resources to obtain, update and review the patients current medications (includes all prescriptions, OTC, herbals, cannabis, and nutritional supplements).: Yes
[2025-09-06] MEDS: LORazepam (*CRX) 1 MG TABLET 2 MG PO ×2 (12:46→18:43)
[2025-09-06] MEDS: ONDANSETRON INJ 4 MG/2 ML VIAL IV PUSH ×2 (12:49→20:30)
[2025-09-06 14:00] VITALS: BP 145/90; PULSE 93; RESP 16; TEMP 36.6; O2SAT 97
[2025-09-06 20:29] VITALS: BP 150/98; PULSE 85; RESP 18; TEMP 37; O2SAT 100
[2025-09-06] MEDS: ALPRAZolam (*CRX) 0.5 MG TABLET PO (22:04)
[2025-09-07] MEDS: diazePAM INJ (*CRX) 10 MG/2 ML SYRINGE IV PUSH ×4 (01:39→20:04)
[2025-09-07] MEDS: KCL 20 MEQ/D5/0.9% SOD CHL 1,000 ML 100 ML IV CONT (02:04)
--- NOTE | 2025-09-07 02:54 | PC.NURSE ---
Daylight Savings Time For Daylight Savings Time Ending in the Fall - Clocks are moved back. For Daylight Savings Time Beginning in the Spring - Clocks are moved ahead. For [facility], the time of change occurs at 0200 hrs. Time is taken from the ms sql server developer. This entry on the patient's chart recognizes the change in time reflected during documentation. Example: 2 entries for vital signs may be charted for 0200 hrs.
[2025-09-07] MEDS: IBUPROFEN IV 800 MG/200 ML 800 MG/200 ML BAG IVPB (04:48)
[2025-09-07 05:59] LABS: Hematocrit 36.3 % (42.0-52.0); Hemoglobin 12.6 g/dL (14.0-18.0); Mean Corpuscular HGB Conc 34.7 g/dl (32-36); Mean Corpuscular Hemoglobin 32.1 pg (26-34); Mean Corpuscular Volume 92.4 fl (80-100); Platelet Count Result 334 k/mm3 (150-375); Red Blood Count 3.93 M/mm3 (4.6-6.20); White Blood Count 7.4 K/mm3 (4.5-10.0)
[2025-09-07 06:00] VITALS: BP 149/97; PULSE 82; RESP 18; TEMP 37.5; O2SAT 100
[2025-09-07 06:23] LABS: Anion Gap 4 mmol/L (4-12); Blood Urea Nitrogen 6 mg/dL (9-20); Calcium 8.2 mg/dL (8.4-10.2); Carbon Dioxide 27 mmol/L (22-30); Chloride 106 mmol/L (98-107); Estimated CRCL calculation 102 ml/min; Estimated Glomerular Filt Rate > 60; Glucose 85 mg/dL (65-110); Potassium 3.7 mmol/L (3.4-5.0); Sodium 137 mmol/L (137-145)
[2025-09-07] MEDS: FAMOTIDINE 20 MG/2 ML VIAL IV PUSH ×2 (08:54→20:04)
[2025-09-07] MEDS: ALPRAZolam (*CRX) 0.5 MG TABLET PO ×3 (10:40→18:25)
--- NOTE | 2025-09-07 10:52 | P.CONIM_ITS ---
Assessment and Plan Assessment and plan (1) Anxiety about treatment: Code(s): R45.89 - Other symptoms and signs involving emotional state Status: Acute Assessment and Plan: p.o. Ativan q.6 switch the Xanax t.i.d. 09/07: Upon examination, pt tearful and obviously anxious. He reports that he is fearful s/p surgery with SBO complication. Pt assured and questions addressed. -Pt reports not having any Xanax since last night with increased anxiety, he states that he does not want to be a burden to the medical staff when requesting the medication since it is PRN. Assured him that this was not a burden, however, what I would change his Xanax 0.5mg to TID scheduled instead of PRN. -Will continue to monitor (2) Small bowel obstruction: Code(s): K56.609 - Unspecified intestinal obstruction, unspecified as to partial versus complete obstruction Status: Acute Assessment and Plan: Robotic assisted bilateral inguinal hernia repair with mesh by Dr. Garrison on 08/28/25 -Continue with NG to low intermittent suction -Okay to clamped tube for walks and meds -NPO sips with meds okay for ice chips -Try to avoid narcotics as his could make small-bowel obstruction take longer to resolve L11/2: pt denies pain right now, may be due to increased anxiety Plan Schedule Xanax TID, reasses HPI Date of Consult Consult date: 09/07/25 Requesting Physician: Ger Potts MD Primary Care Provider: APPRAISER PERSONAL PROPERTY PHYSICIAN Consult Narrative Narrative: Anxiety in the presence of NG tube / recent surgery Review of Systems 2 Review of Systems: 12 systems were reviewed and are negative except for as per HPI. Psychiatric: Psychiatric: Reports anxiety PMFSH Past Medical History Medical History Hx of anxiety disorder Surgical History Surgical History History of bilateral inguinal hernia repair robotic assisted bilateral inguinal hernia repair with mesh 08/28 Dr. garrison Social History Social History Smoking status: Former smoker Additional smoking assessment comments: Black and milds one a day. 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 care concerns: No Meds Home Medications and Allergies Home Medications ?Medication ?Instructions ?Recorded ?Confirmed ?Type docusate sodium 100 mg capsule 100 mg PO BID #20 caps 08/28/25 09/04/25 Rx (Colace) hydrocodone 5 mg-acetaminophen 325 1 tablet PO Q6H PRN pain #20 tabs 08/28/25 09/04/25 Rx mg tablet dicyclomine 20 mg tablet 20 mg PO QID #20 tabs 09/04/25 Rx polyethylene glycol 3350 17 17 g PO BID #119 grams 09/04/25 Rx gram/dose oral powder (Miralax) ondansetron 4 mg disintegrating 4 mg PO Q6H PRN nausea and 09/03/25 09/04/25 Rx tablet vomiting #10 tabs Allergies Allergy/AdvReac Type Severity Reaction Status Date / Time aspirin Allergy Unknown Verified 09/05/25 13:50 Vital Signs Vital Signs - 24 hr 09/06/25 14:00 09/06/25 20:29 09/07/25 06:00 Temperature 97.9 F 98.6 F 99.5 F Pulse Rate 93 85 82 Respiratory Rate 16 18 18 Blood Pressure 145/90 H 150/98 H 149/97 H Pulse Oximetry 97 100 100 Exam 2 Const: General: uncomfortable Other: appears anxious and fearful HENMT: Other: NG tube present with green bile Eyes: General: appearance normal, both eyes and all related structures Neck: Neck: supple Resp: Effort & Inspection: normal respiratory effort Auscultation: clear to auscultation bilaterally Cardio: Rate: regular rate Rhythm: regular rhythm GI: Auscultation: abnormal bowel sounds (hypoactive) Skin: General skin exam: normal color and no rashes or lesions noted Neuro: Speech: normal speech Motor exam (neuro): Normal motor muscle tone present throughout Sensory Exam: normal sensation Extrem: General: normal to inspection and no pedal edema Psych: Mental Status: mental status grossly normal Affect: Anxious affect present Results Labs 09/07/25 05:32 09/07/25 05:32 Labs: Short CBC 09/07/25 Range/Units 05:32 WBC 7.4 (4.5-10.0) K/mm3 Hgb 12.6 L (14.0-18.0) g/dL Hct 36.3 L (42.0-52.0) % Plt Count 334 (150-375) k/mm3 BMP 09/07/25 05:32 Sodium 137 Potassium 3.7 Chloride 106 Carbon Dioxide 27 BUN 6 L Creatinine 0.86 Glucose 85 Calcium 8.2 L Quality VTE Prophylaxis VTE prophylaxis: mechanical ordered
[2025-09-07] MEDS: KCL 40 MEQ/D5/0.9% SOD CHL 1,000 ML 100 ML IV CONT (11:55)
[2025-09-07] MEDS: ONDANSETRON INJ 4 MG/2 ML VIAL IV PUSH (12:29)
--- NOTE | 2025-09-07 13:50 | P.PNGS_ITS ---
Progress Note: A&P Assessment and Plan (1) Small bowel obstruction: Code(s): K56.609 - Unspecified intestinal obstruction, unspecified as to partial versus complete obstruction Status: Acute Assessment and Plan: Passing flatus. But still distended and plain films do not show any improvement. Large amounts coming out nasogastric tube-1750 yesterday and 850 since midnight today. He has nearly had his NG tube in place for 48 hours by this evening. Looking more like he will require surgery than it did earlier. Consider water-soluble small-bowel follow-through tomorrow. (2) Anxiety about treatment: Code(s): R45.89 - Other symptoms and signs involving emotional state Status: Acute Assessment and Plan: Much better with the addition of 0.5 mg oral lorazepam TID, as well as the IV Valium p.r.n. Hospitalist consultation and assistance appreciated. (3) History of bilateral inguinal hernia repair: Code(s): Z98.890 - Other specified postprocedural states; Z87.19 - Personal history of other diseases of the digestive system Status: Chronic Assessment and Plan: No evidence of complications from the surgery. By imaging, the bowel obstruction does not appear to be related to the hernia repair. Subjective Subjective Date/Time Seen: 09/07/25 13:50 Patient reports: pain is less, voiding w/o difficulty, flatus, no bowel movement and afebrile Interval history: Tolerating nasogastric tube much better after additional medications for anxiety. Review of Systems Review of Systems: All systems reviewed & are unremarkable except as noted in HPI and below (HPI) Exam Const: General: cooperative, no acute distress, alert and awake GI: Inspection: distended and incision (Trocar sites healing very well) GI Palp: Yes Firmness to palpation present (GI), Yes Tenderness to palpation present (GI) and No Guarding due to palpation present (GI) Auscultation: Hypoactive bowel sounds present Objective Data Vital Signs Vital Signs: Vital Signs - 24 hr 09/06/25 20:29 09/07/25 06:00 09/07/25 08:00 Temperature 37.0 C 37.5 C Pulse Rate 85 82 Respiratory Rate 18 18 Blood Pressure 150/98 H 149/97 H Pulse Oximetry 100 100 Oxygen Delivery Room Air Intake/Output Intake/Output: Intake & Output 09/04/25 09/05/25 09/06/25 09/07/25 23:59 23:59 23:59 22:59 Intake Total 3000 3066.7 1766.3 1033.4 Output Total 184 078 8335 850 Balance 2800 2866.7 16.3 183.4 Meds/Results Medications: Active Medications Generic Name Dose Route Start Last Admin Trade Name Freq PRN Reason Stop Dose Admin Acetaminophen 650 mg 09/05/25 17:44 Acetaminophen 650 Mg Suppository RECTAL Q6H PRN Mild Pain (1-3) or Fever Alprazolam 0.5 mg 09/07/25 10:30 09/07/25 12:29 Alprazolam (*Crx) 0.5 Mg Tablet PO 0.5 mg TID MANDA Administration Diazepam 2.5 - 5 mg 09/05/25 23:05 09/07/25 05:51 Diazepam Inj (*Crx) 10 Mg/2 Ml Syringe IV PUSH 5 mg Q4H PRN Administration Anxiety Enoxaparin Sodium 40 mg 09/05/25 09:00 09/07/25 08:58 Enoxaparin 40 Mg/0.4 Ml Syringe SUB-Q Not Given DAILY MANDA Famotidine 20 mg 09/04/25 21:00 09/07/25 08:54 Famotidine 20 Mg/2 Ml Vial IV PUSH 20 mg Q12HR MANDA Administration Ibuprofen 800 mg in 200 mls @ 400 mls/hr 09/05/25 20:54 09/07/25 04:48 Caldolor 800 Mg/200 Ml IVPB 5 mls/hr Q6H PRN Administration Pain Rated 4-6 Potassium Chloride/Dextrose/Sod Cl 1,000 mls @ 100 mls/hr 09/07/25 11:30 09/07/25 11:55 Kcl 40 Meq/D5ns IV CONT 100 mls/hr .Q10H MANDA Administration Ondansetron HCl 4 mg 09/04/25 09:10 09/07/25 12:29 Ondansetron Inj 4 Mg/2 Ml Vial IV PUSH 4 mg Q4H PRN Administration Nausea Phenol 1 spray 09/04/25 16:44 Phenol/Sod Pheno [place] (*Bkc) MUCOUS MEM PRN PRN Sore Throat Radiology Results: ITS Impressions Abdomen/Pelvis CT 09/04/25 07:02 IMPRESSION: 1. Dilated small bowel, which may be adynamic ileus or less likely distal small bowel obstruction. Abdomen X-Ray 09/07/25 09:23 IMPRESSION: 1. No significant change. Persistent dilated small bowel loops. Labs Labs: Laboratory Results - last 24 hr 09/07/25 05:32 WBC 7.4 RBC 3.93 L Hgb 12.6 L Hct 36.3 L MCV 92.4 MCH 32.1 MCHC 34.7 RDW 12.2 Plt Count 334 MPV 8.5 Sodium 137 Potassium 3.7 Chloride 106 Carbon Dioxide 27 Anion Gap 4 BUN 6 L Creatinine 0.86 Estim Creat Clear Calc 102 Estimated GFR > 60 Glucose 85 Calcium 8.2 L Imaging Attestation: I personally reviewed and interpreted this imaging study as follows: (Abdominal plain film this morning) My impression: Dilated small bowel, nasogastric tube in good position, does not appear to be improved. Radiologist's impression: FINDINGS: Air-fluid levels cannot be assessed on supine projection. Colonic loops poorly seen. Persistent gaseous dilatation of small bowel loops. No abnormal abdominal calcifications. No acute bony abnormality.
[2025-09-07 14:00] VITALS: BP 157/93; PULSE 82; RESP 16; TEMP 36.6; O2SAT 100
--- NOTE | 2025-09-07 14:30 | ECG_ITS ---
Test Date: 2025-09-07 14:51:28 Measurements Intervals [place] Rate: 75 P: 69 CT: 144 QRS: 29 QRSD: 93 T: 12 QT: 354 QTc: 398 Interpretive Statements SINUS RHYTHM No previous ECG available for comparison Electronically Signed On 09-07-2025 15:53:24 CRAB FISHER by Miriam Pandey M.D.
[2025-09-07 19:51] VITALS: BP 157/97; PULSE 85; RESP 17; TEMP 36.9; O2SAT 100
[2025-09-07] MEDS: IBUPROFEN IV 800 MG/200 ML 800 MG/200 ML BAG 400 MG IVPB (20:17)
[2025-09-08] MEDS: KCL 40 MEQ/D5/0.9% SOD CHL 1,000 ML 100 ML IV CONT (01:50)
[2025-09-08] MEDS: diazePAM INJ (*CRX) 10 MG/2 ML SYRINGE IV PUSH ×5 (01:52→22:14)
[2025-09-08] MEDS: IBUPROFEN IV 800 MG/200 ML 800 MG/200 ML BAG 400 MG IVPB (03:49)
[2025-09-08 04:11] VITALS: BP 174/103; PULSE 74; RESP 18; TEMP 37.2; O2SAT 100
[2025-09-08 05:30] VITALS: BP 137/90; PULSE 80; RESP 18; TEMP 37.2; O2SAT 100
[2025-09-08 05:55] LABS: Hematocrit 36.8 % (42.0-52.0); Hemoglobin 12.8 g/dL (14.0-18.0); Mean Corpuscular HGB Conc 34.8 g/dl (32-36); Mean Corpuscular Hemoglobin 31.9 pg (26-34); Mean Corpuscular Volume 91.8 fl (80-100); Platelet Count Result 346 k/mm3 (150-375); Red Blood Count 4.01 M/mm3 (4.6-6.20); White Blood Count 7.7 K/mm3 (4.5-10.0)
[2025-09-08 06:26] LABS: Anion Gap 5 mmol/L (4-12); Blood Urea Nitrogen 7 mg/dL (9-20); Calcium 8.5 mg/dL (8.4-10.2); Carbon Dioxide 26 mmol/L (22-30); Chloride 105 mmol/L (98-107); Estimated CRCL calculation 102 ml/min; Estimated Glomerular Filt Rate > 60; Glucose 86 mg/dL (65-110); Potassium 3.6 mmol/L (3.4-5.0); Sodium 136 mmol/L (137-145)
--- NOTE | 2025-09-08 07:20 | PM.PNGS ---
Progress Note: A&P Assessment and Plan (1) Small bowel obstruction: Code(s): K56.609 - Unspecified intestinal obstruction, unspecified as to partial versus complete obstruction <Fortunato Sears, DO - Last Filed: 09/08/25 07:28> Status: Acute <Fortunato Sears, DO - Last Filed: 09/08/25 07:28> Assessment and Plan: Passing flatus. But still distended and plain films do not show any improvement over the previous 2 days. Nearly 2 L out of NGT over interval. Will plan for small bowel follow through today. If patient fails SBFT, will consider surgical intervention. <Fortunato Sears, DO - Last Filed: 09/08/25 07:28> (2) Anxiety about treatment: Code(s): R45.89 - Other symptoms and signs involving emotional state <Fortunato Sears, DO - Last Filed: 09/08/25 07:28> Status: Acute <Fortunato Sears, DO - Last Filed: 09/08/25 07:28> Assessment and Plan: Much better with the addition of 0.5 mg oral lorazepam TID, as well as the IV Valium p.r.n. Hospitalist consultation and assistance appreciated. <Fortunato Sears, DO - Last Filed: 09/08/25 07:28> (3) History of bilateral inguinal hernia repair: Code(s): Z98.890 - Other specified postprocedural states; Z87.19 - Personal history of other diseases of the digestive system <Fortunato Sears, DO - Last Filed: 09/08/25 07:28> Status: Chronic <Fortunato Sears, DO - Last Filed: 09/08/25 07:28> Assessment and Plan: No evidence of complications from the surgery, hernia repair intact. Obstruction does not appear to be related to surgery. <Frotunato Sears, DO - Last Filed: 09/08/25 07:28> Subjective Subjective Date/Time Seen: 09/08/25 07:20 <Fortunato Sears, DO - Last Filed: 09/08/25 07:28> Interval history: NAEON. Approximately 2 L out of NGT over interval. Abdomen remains distended. Labs reviewed, okay. VSS. <Fortunato Sears, DO - Last Filed: 09/08/25 07:28> Review of Systems Review of Systems: All systems reviewed & are unremarkable except as noted in HPI and below (HPI) <Fortunato Sears DO - Last Filed: 09/08/25 07:28> Exam Narrative: General: Awake, alert, NAD HEENT: NCAT, EOMI, NGT in place Neck: No masses or swelling, No JVD Heart: RR, HDS Lungs: Symmetric expansion, no IWOB, on RA Abdomen: Soft, compressible, distended, minimal tenderness, incisions healing well Extremities: Moves all, normal inspection <Fortunato Sears DO - Last Filed: 09/08/25 07:28> Objective Data Vital Signs Vital Signs: Vital Signs - 24 hr 09/07/25 08:00 09/07/25 14:00 09/07/25 19:51 Temperature 97.8 F 98.4 F Pulse Rate 82 85 Respiratory Rate 16 17 Blood Pressure 157/93 H 157/97 H Pulse Oximetry 100 100 Oxygen Delivery Room Air 09/07/25 20:21 09/08/25 04:11 09/08/25 05:30 Temperature 99 F 99 F Pulse Rate 74 80 Respiratory Rate 18 18 Blood Pressure 174/103 H 137/90 Pulse Oximetry 100 100 Oxygen Delivery Room Air <Fortunato Sears, DO - Last Filed: 09/08/25 07:28> Intake/Output Intake/Output: Intake & Output 09/05/25 09/06/25 09/07/25 09/08/25 23:59 23:59 22:59 23:59 Intake Total 3066.7 1766.3 2152.5 756.6 Output Total 200 1750 1800 1000 Balance 2866.7 16.3 352.5 -243.4 <Fortunato Sears, DO - Last Filed: 09/08/25 07:28> Meds/Results Medications: Active Medications Generic Name Dose Route Start Last Admin Trade Name Freq PRN Reason Stop Dose Admin Acetaminophen 650 mg 09/05/25 17:44 Acetaminophen 650 Mg Suppository RECTAL Q6H PRN Mild Pain (1-3) or Fever Alprazolam 0.5 mg 09/07/25 10:30 09/07/25 18:25 Alprazolam (*Crx) 0.5 Mg Tablet PO 0.5 mg TID MANDA Administration Diazepam 2.5 - 5 mg 09/05/25 23:05 09/08/25 01:52 Diazepam Inj (*Crx) 10 Mg/2 Ml Syringe IV PUSH 5 mg Q4H PRN Administration Anxiety Enoxaparin Sodium 40 mg 09/05/25 09:00 09/07/25 08:58 Enoxaparin 40 Mg/0.4 Ml Syringe SUB-Q Not Given DAILY MANDA Famotidine 20 mg 09/04/25 21:00 09/07/25 20:04 Famotidine 20 Mg/2 Ml Vial IV PUSH 20 mg Q12HR MANDA Administration Ibuprofen 800 mg in 200 mls @ 400 mls/hr 09/05/25 20:54 09/08/25 04:19 Caldolor 800 Mg/200 Ml IVPB Infused Q6H PRN Infusion Pain Rated 4-6 Potassium Chloride/Dextrose/Sod Cl 1,000 mls @ 100 mls/hr 09/07/25 11:30 09/08/25 04:28 Kcl 40 Meq/D5ns IV CONT 100 mls/hr .Q10H MANDA Infusion Ondansetron HCl 4 mg 09/04/25 09:10 09/07/25 12:29 Ondansetron Inj 4 Mg/2 Ml Vial IV PUSH 4 mg Q4H PRN Administration Nausea Phenol 1 spray 09/04/25 16:44 Phenol/Sod Pheno [place] (*Bkc) MUCOUS MEM PRN PRN Sore Throat <Fortunato Sears, DO - Last Filed: 09/08/25 07:28> Radiology Results: ITS Impressions Abdomen/Pelvis CT 09/04/25 07:02 IMPRESSION: 1. Dilated small bowel, which may be adynamic ileus or less likely distal small bowel obstruction. <Fortunato Sears DO - Last Filed: 09/08/25 07:28> Labs Labs: Laboratory Results - last 24 hr 09/08/25 05:29 WBC 7.7 RBC 4.01 L Hgb 12.8 L Hct 36.8 L MCV 91.8 MCH 31.9 MCHC 34.8 RDW 12.0 Plt Count 346 MPV 8.3 Sodium 136 L Potassium 3.6 Chloride 105 Carbon Dioxide 26 Anion Gap 5 BUN 7 L Creatinine 0.86 Estim Creat Clear Calc 102 Estimated GFR > 60 Glucose 86 Calcium 8.5 <Fortunato Sears, DO - Last Filed: 09/08/25 07:28> Imaging My impression: Continued gaseous distention of the small bowel this am. <Fortunato Sears DO - Last Filed: 09/08/25 07:28> Quality VTE Prophylaxis VTE prophylaxis: pharmacologic ordered <Fortunato Sears DO - Last Filed: 09/08/25 07:28> Attestation Supervising Provider Attestation I, Gale Garrison MD, have provided a substantive portion of the care of this patient. I performed the history, exam and/or medical decision making for this encounter. abd - S, mod dist, mild TTP, labs and imaging reviewed, SBFT today, cont NG decompression and bowel rest, will start PPN, if no improvement overnight will plan to take for laparoscopy tomorrow Gale Garrison MD 09/08/25;14:06 <Gale Garrison MD - Last Filed: 09/08/25 14:07>
[2025-09-08] MEDS: FAMOTIDINE 20 MG/2 ML VIAL IV PUSH ×2 (09:03→22:14)
[2025-09-08] MEDS: ALPRAZolam (*CRX) 0.5 MG TABLET PO ×2 (09:04→18:18)
--- NOTE | 2025-09-08 10:42 | P.CONIM_ITS ---
Assessment and Plan Assessment and plan (1) Anxiety about treatment: Code(s): R45.89 - Other symptoms and signs involving emotional state Status: Acute Assessment and Plan: p.o. Ativan q.6 switch the Xanax t.i.d. 09/07: Upon examination, pt tearful and obviously anxious. He reports that he is fearful s/p surgery with SBO complication. Pt assured and questions addressed. -Pt reports not having any Xanax since last night with increased anxiety, he states that he does not want to be a burden to the medical staff when requesting the medication since it is PRN. Assured him that this was not a burden, however, what I would change his Xanax 0.5mg to TID scheduled instead of PRN. -Will continue to monitor 09/08: Pt reports no real decrease in anxiety today despite his scheduled Xanax. Pt also had a SBO XR today which he thinks exacerbated his anxiety. -Adding BuSpar 10mg TID PRN today, he is aware that this is to be used for break through anxiety and that he has to ask for it (2) Small bowel obstruction: Code(s): K56.609 - Unspecified intestinal obstruction, unspecified as to partial versus complete obstruction Status: Acute Assessment and Plan: Robotic assisted bilateral inguinal hernia repair with mesh by Dr. Garrison on 08/28/25 -Continue with NG to low intermittent suction -Okay to clamped tube for walks and meds -NPO sips with meds okay for ice chips -Try to avoid narcotics as his could make small-bowel obstruction take longer to resolve L11/2: pt denies pain right now, may be due to increased anxiety 09/08: Nursing called while pt in procedure, pt is pain and in need of pain (not anxiety) medication to finish. 0.5mg dilaudid ordered once. Plan Schedule Xanax TID + BuSpar 10mg TID PRN, reasses HPI Date of Consult Consult date: 09/08/25 Requesting Physician: Ger Potts MD Primary Care Provider: RUBBER FLAP TUBER MACHINE OPERATOR PHYSICIAN Consult Narrative Narrative: Pt with a hx of anxiety (states due to losing his daughter) which is exacerbated due to his current hospitalization and SBO. Pt reports today that the scheduled Xanax has not really been helping his anxiety. Review of Systems 2 Review of Systems: 12 systems were reviewed and are negative except for as per HPI. Psychiatric: Psychiatric: Reports anxiety PMFSH Past Medical History Medical History Hx of anxiety disorder Surgical History Surgical History History of bilateral inguinal hernia repair robotic assisted bilateral inguinal hernia repair with mesh 08/28 Dr. garrison Social History Social History Smoking status: Former smoker Additional smoking assessment comments: Black and milds one a day. 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 care concerns: No Meds Home Medications and Allergies Home Medications ?Medication ?Instructions ?Recorded ?Confirmed ?Type docusate sodium 100 mg capsule 100 mg PO BID #20 caps 08/28/25 09/04/25 Rx (Colace) hydrocodone 5 mg-acetaminophen 325 1 tablet PO Q6H PRN pain #20 tabs 08/28/25 09/04/25 Rx mg tablet dicyclomine 20 mg tablet 20 mg PO QID #20 tabs 09/04/25 Rx polyethylene glycol 3350 17 17 g PO BID #119 grams 09/04/25 Rx gram/dose oral powder (Miralax) ondansetron 4 mg disintegrating 4 mg PO Q6H PRN nausea and 09/03/25 09/04/25 Rx tablet vomiting #10 tabs Allergies Allergy/AdvReac Type Severity Reaction Status Date / Time aspirin Allergy Unknown Verified 09/05/25 13:50 Vital Signs Vital Signs - 24 hr 09/07/25 14:00 09/07/25 19:51 09/07/25 20:21 Temperature 97.8 F 98.4 F Pulse Rate 82 85 Respiratory Rate 16 17 Blood Pressure 157/93 H 157/97 H Pulse Oximetry 100 100 Oxygen Delivery Room Air 09/08/25 04:11 09/08/25 05:30 09/08/25 08:00 Temperature 99 F 99 F Pulse Rate 74 80 Respiratory Rate 18 18 Blood Pressure 174/103 H 137/90 Pulse Oximetry 100 100 Oxygen Delivery Room Air Exam 2 Const: General: uncomfortable Other: appears anxious and fearful HENMT: Other: NG tube present with dark green bile Eyes: General: appearance normal, both eyes and all related structures Neck: Neck: supple Resp: Effort & Inspection: normal respiratory effort Auscultation: clear to auscultation bilaterally Cardio: Rate: regular rate Rhythm: regular rhythm GI: Auscultation: abnormal bowel sounds (hypoactive) Skin: General skin exam: normal color and no rashes or lesions noted Neuro: Speech: normal speech Motor exam (neuro): Normal motor muscle tone present throughout Sensory Exam: normal sensation Extrem: General: normal to inspection and no pedal edema Psych: Mental Status: mental status grossly normal Affect: Anxious affect present Results Labs 09/08/25 05:29 09/08/25 05:29 Labs: Short CBC 09/08/25 Range/Units 05:29 WBC 7.7 (4.5-10.0) K/mm3 Hgb 12.8 L (14.0-18.0) g/dL Hct 36.8 L (42.0-52.0) % Plt Count 346 (150-375) k/mm3 BMP 09/08/25 05:29 Sodium 136 L Potassium 3.6 Chloride 105 Carbon Dioxide 26 BUN 7 L Creatinine 0.86 Glucose 86 Calcium 8.5 Quality VTE Prophylaxis VTE prophylaxis: mechanical ordered
[2025-09-08] MEDS: HYDROmorphone HCL INJ (*CRX) 1 MG/ML SYR 0.5 MG IV PUSH (10:59)
--- NOTE | 2025-09-08 11:36 | PCNFU ---
Nutrition Follow-Up Complete: Inadequate energy intake related to altered GI function and current diet orders as evidenced by NPO status and pt report Goal:Diet order PO tolerance -Pt not meeting goal, NPO, New goal: meet estimated needs Pt current nutrition is NPO. Nutrition recommendation: initiate PPN for nutrition support Last recorded weight is 69.4 kg. Bowel Motility: no BM, noted + flatus Labs Reviewed: NA:135, BUN:7 Meds Noted: Pepcid, lovenox, KCL Skin: WNL Additional Notes: Pt continues to be NPO, no BM, but noted + flatus. NGT to suction remains with output. Pt down in radiology at this time. Spoke with nursing and recommended PPN for nutrition support as pt has been NPO x 5 days. Monitor diet orders, intake, wt, labs. follow up in 1 day
[2025-09-08] MEDS: ONDANSETRON INJ 4 MG/2 ML VIAL IV PUSH (12:09)
[2025-09-08 14:10] VITALS: BP 166/98; PULSE 73; RESP 17; TEMP 37; O2SAT 100
[2025-09-08] MEDS: AMINO ACIDS 4.25%/D5W/LYTES/CA 1,000 ML 80 ML IV CONT (15:07)
[2025-09-08] MEDS: FAT EMULSIONS IV 20% 250 ML 20.83 ML IVPB (15:12)
[2025-09-08 21:05] VITALS: BP 149/89; PULSE 113; RESP 16; TEMP 37.3; O2SAT 98
[2025-09-09] VITALS (14 sets, daily range): BP systolic 138–160; BP diastolic 84–106; PULSE 84–104; RESP 12–18; TEMP 36.1–37.3; O2SAT 97–100
[2025-09-09] MEDS: IBUPROFEN IV 800 MG/200 ML 800 MG/200 ML BAG 400 MG IVPB ×4 (00:43→23:38)
[2025-09-09 05:43] LABS: Hematocrit 43.6 % (42.0-52.0); Hemoglobin 15.0 g/dL (14.0-18.0); Mean Corpuscular HGB Conc 34.4 g/dl (32-36); Mean Corpuscular Hemoglobin 32.0 pg (26-34); Mean Corpuscular Volume 93.0 fl (80-100); Platelet Count Result 400 k/mm3 (150-375); Red Blood Count 4.69 M/mm3 (4.6-6.20); White Blood Count 10.9 K/mm3 (4.5-10.0)
[2025-09-09 05:55] LABS: Partial Thromboplastin Time 28.6 Seconds (22.3-36.8)
[2025-09-09 06:14] LABS: Anion Gap 9 mmol/L (4-12); Blood Urea Nitrogen 13 mg/dL (9-20); Calcium 8.9 mg/dL (8.4-10.2); Carbon Dioxide 28 mmol/L (22-30); Chloride 98 mmol/L (98-107); Estimated CRCL calculation 94 ml/min; Estimated Glomerular Filt Rate > 60; Glucose 106 mg/dL (65-110); Magnesium 2.3 mg/dL (1.6-2.3); Potassium 3.6 mmol/L (3.4-5.0); Sodium 135 mmol/L (137-145)
[2025-09-09 06:21] LABS: Transferrin 231 mg/dL (206-381)
--- NOTE | 2025-09-09 06:37 | PC.NURSE ---
Patient weight done in 30 degree semi-flower's position (cannot lie flat) due to NG placement.
[2025-09-09] MEDS: AMINO ACIDS 4.25%/D5W/LYTES/CA 1,000 ML 80 ML IV CONT (08:25)
[2025-09-09] MEDS: ALPRAZolam (*CRX) 0.5 MG TABLET PO ×2 (08:32→17:37)
--- NOTE | 2025-09-09 09:09 | WPDANESEPPF ---
Anes - Initial Pre Proc Eval Procedure: Operation Date: 09/09/25 11:00 Proposed Procedures p Exploratory Laparotomy, Possible Bowel Resection - Gale Garrison MD Date/Time: 09/09/25 09:09 Surgeon: Ger Potts MD Pre Op Diagnosis: Abdominal Pain, Ileus Versus SBO Patient Data Age: 35 Gender: M Height: 1.73 m Weight: 66.6 kg Last Vital Signs Temp 36.3 C L 09/09/25 05:00 Pulse 94 09/09/25 05:00 Resp 16 09/09/25 05:00 BP 151/90 H 09/09/25 05:00 Pulse Ox 99 09/09/25 05:00 O2 Del Method Room Air 09/08/25 21:31 O2 Flow Rate 4 09/05/25 15:54 Allergies Allergy/AdvReac Type Severity Reaction Status Date / Time aspirin Allergy Unknown Verified 09/05/25 13:50 Home Medications ?Medication ?Instructions ?Recorded ?Confirmed ?Type docusate sodium 100 mg capsule 100 mg PO BID #20 caps 08/28/25 09/04/25 Rx (Colace) hydrocodone 5 mg-acetaminophen 325 1 tablet PO Q6H PRN pain #20 tabs 08/28/25 09/04/25 Rx mg tablet dicyclomine 20 mg tablet 20 mg PO QID #20 tabs 08/31/25 09/04/25 Rx polyethylene glycol 3350 17 17 g PO BID #119 grams 08/31/25 09/04/25 Rx gram/dose oral powder (Miralax) ondansetron 4 mg disintegrating 4 mg PO Q6H PRN nausea and 09/03/25 09/04/25 Rx tablet vomiting #10 tabs Laboratory Tests 09/08/25 09/09/25 09/09/25 18:40 00:46 05:03 WBC RBC Hgb Hct MCV MCH MCHC RDW Plt Count MPV APTT Sodium Potassium Chloride Carbon Dioxide Anion Gap BUN Creatinine Estim Creat Clear Calc Estimated GFR Glucose POC Capillary Glucose 121 H mg/dl 128 H mg/dl 115 H mg/dl (65-105) (65-105) (65-105) Calcium Phosphorus Magnesium Transferrin 09/09/25 05:26 WBC 10.9 H K/mm3 (4.5-10.0) RBC 4.69 M/mm3 (4.6-6.20) Hgb 15.0 g/dL (14.0-18.0) Hct 43.6 % (42.0-52.0) MCV 93.0 fl (80-100) MCH 32.0 pg (26-34) MCHC 34.4 g/dl (32-36) RDW 11.9 % (11.5-14.5) Plt Count 400 H k/mm3 (150-375) MPV 8.3 fl (7.4-10.4) APTT 28.6 Seconds (22.3-36.8) Sodium 135 L mmol/L (137-145) Potassium 3.6 mmol/L (3.4-5.0) Chloride 98 mmol/L (98-107) Carbon Dioxide 28 mmol/L (22-30) Anion Gap 9 mmol/L (4-12) BUN 13 D mg/dL (9-20) Creatinine 0.94 mg/dL (0.7-1.3) Estim Creat Clear Calc 94 ml/min Estimated GFR > 60 (59 - ) Glucose 106 mg/dL (65-110) POC Capillary Glucose Calcium 8.9 mg/dL (8.4-10.2) Phosphorus 5.1 H mg/dL (2.5-4.5) Magnesium 2.3 mg/dL (1.6-2.3) Transferrin 231 mg/dL (206-381) Patient hx anesthesia problems: none Family hx anesthesia problems: none Results Review: All pre-operative results and documents have been reviewed as part of the pre-operative evaluation. [facility] Past Medical History Medical History Hx of anxiety disorder Surgical History Surgical History History of bilateral inguinal hernia repair robotic assisted bilateral inguinal hernia repair with mesh 08/28 Dr. garrison Social History Social History Smoking status: Former smoker Additional smoking assessment comments: Black and milds one a day. Alcohol intake: never Substance use: never Substance use type: marijuana Other substance usage details: Medical card for rene sweets for anxiety Lack of Transportation: No Lack of Food: Never True Current Housing: I Have Housing Concerned About Future Housing: No Difficulty Paying Gas/Electric Bills: No Difficulty Paying for Meds: No Currently Unemployed: No Education: Decline to Answer Difficulty w/ Childcare or Family Care: No Living arrangements: with family Occupation/Education: occupation Additional occupation/education comments: [employer] Spiritual care concerns: No Anes - Eval Final PreProcedure Day of Procedure Patient weight: normal Heart: regular rate and rhythm Lungs: clear to auscultation and normal air movement Airway: Mallampati scale class II, special considerations and other (chipped front teeth) Neurological: alert and oriented Last oral intake: >/= 8 hours ASA classification: III Emergent: no Anesthetic plan: proceed Anesthesia type and monitoring: general LMA and standard monitoring
[2025-09-09] MEDS: FAMOTIDINE 20 MG/2 ML VIAL IV PUSH ×2 (09:20→20:38)
[2025-09-09] MEDS: LACTATED RINGERS 1,000 ML 30 ML IV CONT ×2 (10:00→12:43)
--- NOTE | 2025-09-09 10:10 | WPDHPUPDATE1 ---
History and Physical Update Update Date/Time: 09/09/25 10:10 History and Physical has been reviewed, including an updated exam of the patient. There are NO changes in the patient's condition. Risks, benefits, and alternatives have been discussed and questions answered. Patient agrees to proceed with procedure. setup for diagnostic laparoscopy, possible exploratory laparotomy, possible bowel resection
[2025-09-09] MEDS: BUPIVACAINE/EPINEPHRINE 0.5% 30 ML VIAL INFILTRATE (10:26)
[2025-09-09] MEDS: ceFAZolin 2 GM in SODIUM CHLORIDE 0.9% IV 50 ML 100 ML IVPB (10:26)
--- NOTE | 2025-09-09 12:28 | PCNFU ---
Nutrition Follow-Up Complete: Inadequate energy intake related to altered GI function and current diet orders as evidenced by NPO status and pt report Goal:Diet order PO tolerance Pt not meeting goal - New goal to meet estimated needs - progressing towards goal. Pt current nutrition is NPO, PPN running Clinimix E 4.25/5 @ 80ml/hr to provide 1183kcals, 82g protein over 24hrs. This is meeting 60% estimated needs and 117% protein needs. Nutrition recommendation: continue with current plan of care Last recorded weight is 66.6 kg. Bowel Motility: No BM yet Labs Reviewed: NA:135, Glu:115 Meds Noted: pepcid, lovenox, KCL Skin: WNL Additional Notes: pt started on PPN for nutrition support, agree with orders, no BM at this time, continues to have output in NGT. Continue to monitor. Monitor diet orders, intake, wt, labs. follow up every Monday and Monday.
--- NOTE | 2025-09-09 12:43 | W.PM.PROC2 ---
Procedure Note - Detailed Date of Procedure 09/09/25 Pre-op Diagnosis Small-bowel obstruction Post-op Diagnosis Other ( incarcerated internal hernia) Procedure Performed diagnostic laparoscopy, hand assisted laparoscopic repair right lower quadrant internal hernia with reduction of small bowel resulting in small-bowel obstruction, primary repair of internal hernia measuring 5 cm, repair of serosal tears in the small bowel Surgeon Gale Garrison MD Clinical Staff Educator DO [place] Anesthesia General and Local Indications 35-year-old male with small-bowel obstruction. Patient had previous robotic assisted bilateral inguinal hernia repair. Findings Internal hernia secondary to hole in the peritoneum of R sided inguinal hernia repair, incarcerated small bowel within hernia resulting in complete bowel obstruction Description of Procedure The patient was taken the operating room and placed in the supine position. After adequate induction of general anesthesia, the patient was prepped and draped in the normal sterile fashion. A time-out was then done to verify the patient's identity, as well as the procedure being performed. I began by making a 5 mm incision in the left upper quadrant. Through this a Veress needle was placed in the peritoneal cavity. Once confirmed in position, CO2 gas was insufflated. After adequate pneumoperitoneum was achieved, the Veress needle was removed and a 5 mm Optiview trocar was placed in the left upper quadrant under direct visualization. I then placed the scope through this trocar site and examined the abdomen. It was noted that he had very dilated small intestine. Upon examining the right lower quadrant, there was noted to be collapsed distal ileum. Proximal to this area, there was noted to be small bowel incarcerated within an internal hernia. This internal hernia was caused by a hole in the peritoneum. This was inferior to our previous flap closure. The flap closure was noted to be completely intact. This hole in the peritoneum measured approximately 5 cm. Given these findings, I placed a further 5 mm port in the suprapubic area and left lower abdomen. Using gentle traction and dissection, I was able to reduce the small bowel out of the internal hernia. Once reduced, I examined the small bowel and there were noted to be a few serosal tears likely secondary to adhesions to the inguinal hernia mesh. Given this finding, the decision was made to convert to a hand assisted repair to further examine the small intestine. A hand port was made in the lower midline under direct visualization. This did incorporate the suprapubic port. Once the hand port was placed, I was able to further examine the small bowel. The small bowel was noted to be viable and the obstruction looked to be completely resolved at this point. There was a interloop adhesion of the small bowel that was taken down with the Metzenbaum scissors. I was able to identify the area of the serosal tears and this was oversewn with 3-0 Vicryl suture. At this point, I called my partner Dr. Jacobson to assist with closure of the internal hernia. An additional 5 mm right upper quadrant port was placed under direct visualization. We attempted to close the internal hernia laparoscopically, however, given the insufflation and thinness of the peritoneal tissue we are unable to close this without ripping further holes in the peritoneum. We then removed the hand port and were able to repair peritoneal rent under direct visualization using 2-0 V lock suture. I then examined the entirety of the small intestine which now was completely pathology free and nonobstructed. All port sites were then removed and the abdomen was desufflated. I then closed the fascia of the hand port site with 0 looped PDS suture. The subcutaneous tissue was closed with 3-0 Vicryl suture. All incisions were then closed with 4-0 Monocryl subcuticular suture. Please note that given the complex nature of this case I would not have been able to complete this without help of partner Dr. Jacobson. His help was instrumental in closing the internal as visualization was poor given the distention of the small bowel. Estimated Blood Loss 25 Pathology None sent Complications No immediate complications Condition Stable Disposition PACU [facility] Billing Surgery - Charge Forward: Surgery Billing
[2025-09-09] MEDS: fentaNYL CITRATE INJ (*CRX) 100 MCG/2 ML VIAL 25 MCG IV PUSH ×4 (13:28→14:05)
[2025-09-09 13:33] LABS: Triglycerides 163 mg/dL (<150)
--- NOTE | 2025-09-09 14:07 | P.CONIM_ITS ---
Assessment and Plan Assessment and plan (1) Anxiety about treatment: Code(s): R45.89 - Other symptoms and signs involving emotional state Status: Acute Assessment and Plan: p.o. Ativan q.6 switch the Xanax t.i.d. 09/07: Upon examination, pt tearful and obviously anxious. He reports that he is fearful s/p surgery with SBO complication. Pt assured and questions addressed. -Pt reports not having any Xanax since last night with increased anxiety, he states that he does not want to be a burden to the medical staff when requesting the medication since it is PRN. Assured him that this was not a burden, however, what I would change his Xanax 0.5mg to TID scheduled instead of PRN. -Will continue to monitor 09/08: Pt reports no real decrease in anxiety today despite his scheduled Xanax. Pt also had a SBO XR today which he thinks exacerbated his anxiety. -Adding BuSpar 10mg TID PRN today, he is aware that this is to be used for break through anxiety and that he has to ask for it 09/09: Pt to surgery today. Will keep medication management the same. Xanax TID, buspar for break through anxiety TID. (2) Small bowel obstruction: Code(s): K56.609 - Unspecified intestinal obstruction, unspecified as to partial versus complete obstruction Status: Acute Assessment and Plan: Robotic assisted bilateral inguinal hernia repair with mesh by Dr. Garrison on 08/28/25 -Continue with NG to low intermittent suction -Okay to clamped tube for walks and meds -NPO sips with meds okay for ice chips -Try to avoid narcotics as his could make small-bowel obstruction take longer to resolve L11/2: pt denies pain right now, may be due to increased anxiety 09/08: Nursing called while pt in procedure, pt is pain and in need of pain (not anxiety) medication to finish. 0.5mg dilaudid ordered once. 09/09: Surgical intervention today. Plan Schedule Xanax TID + BuSpar 10mg TID PRN, reasses HPI Date of Consult Consult date: 09/09/25 Requesting Physician: Ger Potts MD Primary Care Provider: DEICER FINISHER PHYSICIAN Consult Narrative Narrative: Hospitalist asked to consult on pt for anxiety. Pt was in surgery both times this team rounded. Review of Systems 2 Review of Systems: 12 systems were reviewed and are negative except for as per HPI. Psychiatric: Psychiatric: Reports anxiety PMFSH Past Medical History Medical History Hx of anxiety disorder Surgical History Surgical History History of bilateral inguinal hernia repair robotic assisted bilateral inguinal hernia repair with mesh 08/28 Dr. garrison Social History Social History Smoking status: Former smoker Additional smoking assessment comments: Porfirio one a day. Alcohol intake: never Substance use: never Substance use type: marijuana Other substance usage details: Medical card for rene sweets for anxiety Lack of Transportation: No Lack of Food: Never True Current Housing: I Have Housing Concerned About Future Housing: No Difficulty Paying Gas/Electric Bills: No Difficulty Paying for Meds: No Currently Unemployed: No Education: Decline to Answer Difficulty w/ Childcare or Family Care: No Living arrangements: with family Occupation/Education: occupation Additional occupation/education comments: [employer] Spiritual care concerns: No Meds Home Medications and Allergies Home Medications ?Medication ?Instructions ?Recorded ?Confirmed ?Type docusate sodium 100 mg capsule 100 mg PO BID #20 caps 08/28/25 09/04/25 Rx (Colace) hydrocodone 5 mg-acetaminophen 325 1 tablet PO Q6H PRN pain #20 tabs 08/28/25 09/04/25 Rx mg tablet dicyclomine 20 mg tablet 20 mg PO QID #20 tabs 09/04/25 Rx polyethylene glycol 3350 17 17 g PO BID #119 grams 09/04/25 Rx gram/dose oral powder (Miralax) ondansetron 4 mg disintegrating 4 mg PO Q6H PRN nausea and 09/03/25 09/04/25 Rx tablet vomiting #10 tabs Allergies Allergy/AdvReac Type Severity Reaction Status Date / Time aspirin Allergy Unknown Verified 09/09/25 10:39 Vital Signs Vital Signs - 24 hr 09/08/25 14:10 09/08/25 21:05 09/08/25 21:31 Temperature 98.6 F 99.1 F Pulse Rate 73 113 H Respiratory Rate 17 16 Blood Pressure 166/98 H 149/89 H Pulse Oximetry 100 98 Oxygen Delivery Room Air Oxygen Flow Rate 09/09/25 05:00 09/09/25 10:00 09/09/25 12:43 Temperature 97.4 F L 99.1 F 98.7 F Pulse Rate 94 99 95 Respiratory Rate 16 16 18 Blood Pressure 151/90 H 157/96 H 160/106 H Pulse Oximetry 99 98 100 Oxygen Delivery Room Air Simple Face Mask Oxygen Flow Rate 6 09/09/25 12:55 09/09/25 13:10 09/09/25 13:25 Temperature Pulse Rate 89 90 89 Respiratory Rate 12 14 14 Blood Pressure 158/89 H 155/93 H 148/94 H Pulse Oximetry 100 100 97 Oxygen Delivery Simple Face Mask Simple Face Mask Room Air Oxygen Flow Rate 6 6 09/09/25 13:40 09/09/25 13:55 Temperature Pulse Rate 84 85 Respiratory Rate 12 12 Blood Pressure 142/90 H 144/96 H Pulse Oximetry 97 98 Oxygen Delivery Room Air Room Air Oxygen Flow Rate Results Labs 09/09/25 05:26 09/09/25 05:26 Labs: Short CBC 09/09/25 Range/Units 05:26 WBC 10.9 H (4.5-10.0) K/mm3 Hgb 15.0 (14.0-18.0) g/dL Hct 43.6 (42.0-52.0) % Plt Count 400 H (150-375) k/mm3 BMP 09/09/25 05:26 Sodium 135 L Potassium 3.6 Chloride 98 Carbon Dioxide 28 BUN 13 D Creatinine 0.94 Glucose 106 Calcium 8.9 Quality VTE Prophylaxis VTE prophylaxis: mechanical ordered
[2025-09-09] MEDS: FAT EMULSIONS IV 20% 250 ML 20.83 ML IVPB (15:30)
[2025-09-09] MEDS: MELATONIN 5 MG TABLET PO (20:38)
[2025-09-09] MEDS: diazePAM INJ (*CRX) 10 MG/2 ML SYRINGE IV PUSH (20:41)
[2025-09-10] MEDS: diazePAM INJ (*CRX) 10 MG/2 ML SYRINGE IV PUSH (00:17)
[2025-09-10] MEDS: DICYCLOMINE HCL INJ 20 MG/2 ML VIAL IM ×2 (00:18→05:30)
--- NOTE | 2025-09-10 05:08 | P.PNCROSS_ITS ---
Event Note Event Note Event Note: The patient was having much discomfort. We discussed the necessity of ambulati ng when possible. His NG tube was flushed. Bentyl IM ordered. Please refer to surgical team for any further pain medication.
[2025-09-10] MEDS: AMINO ACIDS 4.25%/D5W/LYTES/CA 1,000 ML 80 ML IV CONT ×2 (05:30→16:19)
[2025-09-10] MEDS: IBUPROFEN IV 800 MG/200 ML 800 MG/200 ML BAG 400 MG IVPB (05:32)
[2025-09-10 05:46] VITALS: BP 148/99; PULSE 103; RESP 16; TEMP 37.1; O2SAT 97
[2025-09-10 06:08] LABS: Hematocrit 38.8 % (42.0-52.0); Hemoglobin 13.4 g/dL (14.0-18.0); Mean Corpuscular HGB Conc 34.5 g/dl (32-36); Mean Corpuscular Hemoglobin 32.1 pg (26-34); Mean Corpuscular Volume 92.8 fl (80-100); Platelet Count Result 375 k/mm3 (150-375); Red Blood Count 4.18 M/mm3 (4.6-6.20); White Blood Count 11.7 K/mm3 (4.5-10.0)
[2025-09-10 06:31] LABS: Anion Gap 7 mmol/L (4-12); Blood Urea Nitrogen 12 mg/dL (9-20); Calcium 8.2 mg/dL (8.4-10.2); Carbon Dioxide 28 mmol/L (22-30); Chloride 99 mmol/L (98-107); Estimated CRCL calculation 100 ml/min; Estimated Glomerular Filt Rate > 60; Glucose 104 mg/dL (65-110); Potassium 3.7 mmol/L (3.4-5.0); Sodium 134 mmol/L (137-145)
[2025-09-10 08:00] VITALS: PULSE 96; RESP 16; O2SAT 97
[2025-09-10 08:29] VITALS: PULSE 96; O2SAT 97
[2025-09-10] MEDS: FAMOTIDINE 20 MG/2 ML VIAL IV PUSH ×2 (08:54→20:18)
[2025-09-10] MEDS: ALPRAZolam (*CRX) 0.5 MG TABLET PO ×2 (08:54→16:18)
[2025-09-10] MEDS: ENOXAPARIN 40 MG/0.4 ML SYRINGE SUB-Q (08:55)
[2025-09-10] MEDS: HYDROmorphone HCL INJ (*CRX) 1 MG/ML SYR 0.5 MG IV PUSH (09:02)
--- NOTE | 2025-09-10 10:30 | P.PNGS_ITS ---
Progress Note: A&P Assessment and Plan (1) Internal hernia: Code(s): K45.8 - Other specified abdominal hernia without obstruction or gangrene Status: Acute Assessment and Plan: s/p repair, await ROBF, encourage OOB/IS, cont NG decompression and bowel rest for now, cont PPN Subjective Subjective Date/Time Seen: 09/10/25 10:30 Interval history: feels better, c/o incisional pain timothy c movt Review of Systems 2 Review of Systems: All systems reviewed & are unremarkable except as noted in HPI and below Exam Const: General: cooperative, no acute distress and uncomfortable Resp: Auscultation: clear to auscultation bilaterally Cardio: Rate: regular rate Rhythm: regular rhythm GI: Inspection: normal to inspection, distended and incision GI Palp: Yes abdominal tenderness and Yes Soft to palpation Objective Data Vital Signs Vital Signs: Vital Signs - 24 hr 09/09/25 12:43 09/09/25 12:55 09/09/25 13:10 Temperature 37.1 C Pulse Rate 95 89 90 Respiratory Rate 18 12 14 Blood Pressure 160/106 H 158/89 H 155/93 H Pulse Oximetry 100 100 100 Oxygen Delivery Simple Face Mask Simple Face Mask Simple Face Mask Oxygen Flow Rate 6 6 6 Fraction of Inspired Oxygen 09/09/25 13:25 09/09/25 13:40 09/09/25 13:55 Temperature Pulse Rate 89 84 85 Respiratory Rate 14 12 12 Blood Pressure 148/94 H 142/90 H 144/96 H Pulse Oximetry 97 97 98 Oxygen Delivery Room Air Room Air Room Air Oxygen Flow Rate Fraction of Inspired Oxygen 09/09/25 14:10 09/09/25 14:20 09/09/25 14:45 Temperature 36.1 C L Pulse Rate 96 93 87 Respiratory Rate 15 16 16 Blood Pressure 139/98 H 140/99 H 138/84 Pulse Oximetry 100 100 99 Oxygen Delivery Room Air Room Air Oxygen Flow Rate Fraction of Inspired Oxygen 09/09/25 15:29 09/09/25 16:30 09/09/25 20:00 Temperature 36.2 C L 36.4 C Pulse Rate 86 99 Respiratory Rate 16 16 Blood Pressure 147/85 H 145/99 H Pulse Oximetry 99 98 Oxygen Delivery Room Air Oxygen Flow Rate Fraction of Inspired Oxygen 09/09/25 20:30 09/10/25 05:46 09/10/25 08:29 Temperature 37.3 C 37.1 C Pulse Rate 104 H 103 H 96 Respiratory Rate 18 16 Blood Pressure 153/97 H 148/99 H Pulse Oximetry 100 97 97 Oxygen Delivery Room Air Oxygen Flow Rate Fraction of Inspired Oxygen 21 Intake/Output Intake/Output: Intake & Output 09/07/25 09/08/25 09/09/25 09/10/25 22:59 23:59 23:59 23:59 Intake Total 2152.5 1343.1 3138.5 650 Output Total 1800 3600 3410 450 Balance 352.5 -2256.9 -271.5 200 Meds/Results Medications: Active Medications Generic Name Dose Route Start Last Admin Trade Name Freq PRN Reason Stop Dose Admin Acetaminophen 650 mg 09/05/25 17:44 Acetaminophen 650 Mg Suppository RECTAL Q6H PRN Mild Pain (1-3) or Fever Alprazolam 0.5 mg 09/07/25 10:30 09/10/25 08:54 Alprazolam (*Crx) 0.5 Mg Tablet PO 0.5 mg TID MANDA Administration Buspirone HCl 10 mg 09/08/25 13:08 09/09/25 17:37 Buspirone Hcl 10 Mg Tablet PO 10 mg TID PRN Administration Anxiety Diazepam 2.5 - 5 mg 09/05/25 23:05 09/10/25 00:17 Diazepam Inj (*Crx) 10 Mg/2 Ml Syringe IV PUSH 5 mg Q4H PRN Administration Anxiety Enoxaparin Sodium 40 mg 09/05/25 09:00 09/10/25 08:55 Enoxaparin 40 Mg/0.4 Ml Syringe SUB-Q 40 mg DAILY MANDA Administration Famotidine 20 mg 09/04/25 21:00 09/10/25 08:54 Famotidine 20 Mg/2 Ml Vial IV PUSH 20 mg Q12HR MANDA Administration Ibuprofen 800 mg in 200 mls @ 400 mls/hr 09/05/25 20:54 09/10/25 06:02 Caldolor 800 Mg/200 Ml IVPB Infused Q6H PRN Infusion Pain Rated 4-6 Dextrose 1,000 mls @ 50 mls/hr 09/08/25 13:48 Dextrose 10% IV CONT .Q20H PRN if PN is interrupted Amino Acids/Electrolytes/Dextrose 1,000 mls @ 80 mls/hr 09/08/25 15:00 09/10/25 05:30 Clinimix E 4.25%/5% Solution IV CONT 09/10/25 17:59 80 mls/hr .[id number] MANDA Administration Protocol Fat Emulsion Intravenous 250 mls @ 20.833 mls/hr 09/08/25 15:00 09/10/25 07:03 Lipids 20% IVPB Infused Q24H MANDA Infusion Amino Acids/Electrolytes/Dextrose 1,000 mls @ 80 mls/hr 09/10/25 18:00 Clinimix E 4.25%/5% Solution IV CONT .[id number] MANDA Protocol Melatonin 5 mg 09/09/25 21:00 09/09/25 20:38 Melatonin 5 Mg Tablet PO 5 mg HS MANDA Administration Ondansetron HCl 4 mg 09/04/25 09:10 09/08/25 12:09 Ondansetron Inj 4 Mg/2 Ml Vial IV PUSH 4 mg Q4H PRN Administration Nausea Phenol 1 spray 09/04/25 16:44 Phenol/Sod Pheno [place] (*Bkc) MUCOUS MEM PRN PRN Sore Throat Radiology Results: ITS Impressions Abdomen/Pelvis CT 09/04/25 07:02 IMPRESSION: 1. Dilated small bowel, which may be adynamic ileus or less likely distal small bowel obstruction. Abdomen X-Ray 09/08/25 09:41 IMPRESSION: 1. Multiple dilated small bowel loops similar to the prior study from 09/07/2025. The findings are suggestive of a small bowel obstruction. 2. Probable nasogastric tube projecting over the left upper abdomen which was not fully visualized. Small Bowel X-Ray 09/08/25 14:26 IMPRESSION: 1. Persistent multiple dilated gas-filled loops of small bowel no significant progression of contrast beyond the proximal ileum or 3 hours of imaging consistent with small bowel obstruction versus severe ileus. Labs Labs: Laboratory Results - last 24 hr 09/09/25 09/09/25 09/09/25 05:26 19:02 23:57 WBC RBC Hgb Hct MCV MCH MCHC RDW Plt Count MPV Sodium Potassium Chloride Carbon Dioxide Anion Gap BUN Creatinine Estim Creat Clear Calc Estimated GFR Glucose POC Capillary Glucose 133 H 106 H Calcium Phosphorus Triglycerides 163 H 09/10/25 09/10/25 04:49 05:52 WBC 11.7 H RBC 4.18 L Hgb 13.4 L Hct 38.8 L MCV 92.8 MCH 32.1 MCHC 34.5 RDW 12.1 Plt Count 375 MPV 8.4 Sodium 134 L Potassium 3.7 Chloride 99 Carbon Dioxide 28 Anion Gap 7 BUN 12 Creatinine 0.86 Estim Creat Clear Calc 100 Estimated GFR > 60 Glucose 104 POC Capillary Glucose 94 Calcium 8.2 L Phosphorus 3.5 Triglycerides
[2025-09-10 14:00] VITALS: BP 144/85; PULSE 121; RESP 18; TEMP 36.8; O2SAT 97
[2025-09-10] MEDS: ONDANSETRON INJ 4 MG/2 ML VIAL IV PUSH (14:02)
[2025-09-10] MEDS: KETOROLAC 15 MG/ML VIAL (*BKC) IV PUSH ×2 (14:02→20:18)
--- NOTE | 2025-09-10 14:45 | P.PNIM_ITS ---
Progress Note: A&P Assessment and Plan (1) Anxiety about treatment: Code(s): R45.89 - Other symptoms and signs involving emotional state Status: Acute Assessment and Plan: p.o. Ativan q.6 switch the Xanax t.i.d. 09/07: Upon examination, pt tearful and obviously anxious. He reports that he is fearful s/p surgery with SBO complication. Pt assured and questions addressed. -Pt reports not having any Xanax since last night with increased anxiety, he states that he does not want to be a burden to the medical staff when requesting the medication since it is PRN. Assured him that this was not a burden, however, what I would change his Xanax 0.5mg to TID scheduled instead of PRN. -Will continue to monitor 09/08: Pt reports no real decrease in anxiety today despite his scheduled Xanax. Pt also had a SBO XR today which he thinks exacerbated his anxiety. -Adding BuSpar 10mg TID PRN today, he is aware that this is to be used for break through anxiety and that he has to ask for it 09/09: Pt to surgery today. Will keep medication management the same. Xanax TID, buspar for break through anxiety TID. 09/10 Seems more of a pain situation, one time dose dilaudid, morphine added per surgery (2) Small bowel obstruction: Code(s): K56.609 - Unspecified intestinal obstruction, unspecified as to partial versus complete obstruction Status: Acute Assessment and Plan: Robotic assisted bilateral inguinal hernia repair with mesh by Dr. Garrison on 08/28/25 -Continue with NG to low intermittent suction -Okay to clamped tube for walks and meds -NPO sips with meds okay for ice chips -Try to avoid narcotics as his could make small-bowel obstruction take longer to resolve 09/07: pt denies pain right now, may be due to increased anxiety 09/08: Nursing called while pt in procedure, pt is pain and in need of pain (not anxiety) medication to finish. 0.5mg dilaudid ordered once. 09/09: Surgical intervention today. 09/10 P/O day one, incision stable continue care per surgery Plan Schedule Xanax TID + BuSpar 10mg TID PRN, reasses Time Spent With Patient Time: 56 minutes Time with patient: Greater than 35 minutes Subjective Date/time seen: 09/10/25 14:45 Interval history: Patient reports pain. He stated that the pain medication was wearing off quickly. gave one time dose of dilaudid. he denies any chest pain, shortness of breath, nausea, and vomiting. Review of Systems Review of Systems: All systems reviewed & are unremarkable except as noted in HPI and below Exam Narrative: General: well appearing, appears stated age. HEENT: normocephalic, atraumatic. Mucous membranes moist. EOMI, PERRLA, bilateral sclera anicteric, no conjunctival injection. Neck supple without JVD, lymphadenopathy, or bruit. NG tube green bile Respiratory: clear bilaterally. No rales/rhonic/wheezes. Cardiovascular: Regular rate and rhythm, normal S1-S2. No murmurs, rubs, or clicks. PMI is nondisplaced, capillary refill less than 3 second. Abdomen: flat soft with a 4 inch midline incision. Extremities: No cyanosis, clubbing, or edema present. Pulses are palpable 2/2. Active ROM to all four extremities. Neuro: Alert and orientated x 4. PERRLA. Cranial nerves 2-12 intact without focal deficit. Skin: Warm, dry, and intact, without rash, erythema, or lesion. Psych: pleasant, cooperative, normal speech, normal affect, no hallucinations, no dysarthia Objective Data Vital Signs Vital Signs: Vital Signs - 24 hr 09/09/25 15:29 09/09/25 16:30 09/09/25 20:00 Temperature 97.1 F L 97.6 F Pulse Rate 86 99 Respiratory Rate 16 16 Blood Pressure 147/85 H 145/99 H Pulse Oximetry 99 98 Oxygen Delivery Room Air Fraction of Inspired Oxygen 09/09/25 20:30 09/10/25 05:46 09/10/25 08:00 Temperature 99.1 F 98.8 F Pulse Rate 104 H 103 H 96 Respiratory Rate 18 16 16 Blood Pressure 153/97 H 148/99 H Pulse Oximetry 100 97 97 Oxygen Delivery Room Air Fraction of Inspired Oxygen 21 09/10/25 08:29 Temperature Pulse Rate 96 Respiratory Rate Blood Pressure Pulse Oximetry 97 Oxygen Delivery Room Air Fraction of Inspired Oxygen 21 Intake/Output Intake/Output: Intake & Output 09/07/25 09/08/25 09/09/25 09/10/25 22:59 23:59 23:59 23:59 Intake Total 2152.5 1343.1 3138.5 850 Output Total 1800 3600 3410 2000 Balance 352.5 -2256.9 -271.5 -1150 Meds/Results Medications: Active Medications Generic Name Dose Route Start Last Admin Trade Name Freq PRN Reason Stop Dose Admin Acetaminophen 650 mg 09/05/25 17:44 Acetaminophen 650 Mg Suppository RECTAL Q6H PRN Mild Pain (1-3) or Fever Alprazolam 0.5 mg 09/07/25 10:30 09/10/25 13:22 Alprazolam (*Crx) 0.5 Mg Tablet PO Not Given TID MANDA Buspirone HCl 10 mg 09/08/25 13:08 09/09/25 17:37 Buspirone Hcl 10 Mg Tablet PO 10 mg TID PRN Administration Anxiety Diazepam 2.5 - 5 mg 09/05/25 23:05 09/10/25 00:17 Diazepam Inj (*Crx) 10 Mg/2 Ml Syringe IV PUSH 5 mg Q4H PRN Administration Anxiety Enoxaparin Sodium 40 mg 09/05/25 09:00 09/10/25 08:55 Enoxaparin 40 Mg/0.4 Ml Syringe SUB-Q 40 mg DAILY MANDA Administration Famotidine 20 mg 09/04/25 21:00 09/10/25 08:54 Famotidine 20 Mg/2 Ml Vial IV PUSH 20 mg Q12HR MANDA Administration Dextrose 1,000 mls @ 50 mls/hr 09/08/25 13:48 Dextrose 10% IV CONT .Q20H PRN if PN is interrupted Amino Acids/Electrolytes/Dextrose 1,000 mls @ 80 mls/hr 09/08/25 15:00 09/10/25 13:20 Clinimix E 4.25%/5% Solution IV CONT 09/10/25 17:59 Not Given .[id number] [facility] Protocol Fat Emulsion Intravenous 250 mls @ 20.833 mls/hr 09/08/25 15:00 09/10/25 07:03 Lipids 20% IVPB Infused Q24H MANDA Infusion Amino Acids/Electrolytes/Dextrose 1,000 mls @ 80 mls/hr 09/10/25 18:00 Clinimix E 4.25%/5% Solution IV CONT .[id number] [facility] Protocol Ketorolac Tromethamine 15 mg 09/10/25 13:38 09/10/25 14:02 Ketorolac 15 Mg/Ml Vial (*Bkc) IV PUSH 15 mg Q6H PRN Administration Pain Rated 4-6 Melatonin 5 mg 09/09/25 21:00 09/09/25 20:38 Melatonin 5 Mg Tablet PO 5 mg HS MANDA Administration Morphine Sulfate 4 mg 09/10/25 13:36 Morphine Sulfate (*Crx) 4 Mg/Ml Inj IV PUSH Q4H PRN Pain Rated 7-10 Morphine Sulfate 2 mg 09/10/25 13:37 Morphine Sulfate (*Crx) 4 Mg/Ml Inj IV PUSH Q4H PRN Pain Rated 7-10 Ondansetron HCl 4 mg 09/04/25 09:10 09/10/25 14:02 Ondansetron Inj 4 Mg/2 Ml Vial IV PUSH 4 mg Q4H PRN Administration Nausea Phenol 1 spray 09/04/25 16:44 Phenol/Sod Pheno [place] (*Bkc) MUCOUS MEM PRN PRN Sore Throat Radiology Results: ITS Impressions Abdomen/Pelvis CT 09/04/25 07:02 IMPRESSION: 1. Dilated small bowel, which may be adynamic ileus or less likely distal small bowel obstruction. Abdomen X-Ray 09/08/25 09:41 IMPRESSION: 1. Multiple dilated small bowel loops similar to the prior study from 09/07/2025. The findings are suggestive of a small bowel obstruction. 2. Probable nasogastric tube projecting over the left upper abdomen which was not fully visualized. Small Bowel X-Ray 09/08/25 14:26 IMPRESSION: 1. Persistent multiple dilated gas-filled loops of small bowel no significant progression of contrast beyond the proximal ileum or 3 hours of imaging consistent with small bowel obstruction versus severe ileus. Labs Labs: Laboratory Results - last 24 hr 09/09/25 09/09/25 09/10/25 19:02 23:57 04:49 WBC RBC Hgb Hct MCV MCH MCHC RDW Plt Count MPV Sodium Potassium Chloride Carbon Dioxide Anion Gap BUN Creatinine Estim Creat Clear Calc Estimated GFR Glucose POC Capillary Glucose 133 H 106 H 94 Calcium Phosphorus 09/10/25 09/10/25 05:52 11:39 WBC 11.7 H RBC 4.18 L Hgb 13.4 L Hct 38.8 L MCV 92.8 MCH 32.1 MCHC 34.5 RDW 12.1 Plt Count 375 MPV 8.4 Sodium 134 L Potassium 3.7 Chloride 99 Carbon Dioxide 28 Anion Gap 7 BUN 12 Creatinine 0.86 Estim Creat Clear Calc 100 Estimated GFR > 60 Glucose 104 POC Capillary Glucose 106 H Calcium 8.2 L Phosphorus 3.5 Quality VTE Prophylaxis VTE prophylaxis: mechanical ordered Hospitalist [facility] Advance Care Plan I have confirmed that the patient's Advanced Care Plan is present, code status is documented, or surrogate decision maker is listed in patient medical record.: Yes
[2025-09-10] MEDS: FAT EMULSIONS IV 20% 250 ML 20.83 ML IVPB (16:19)
[2025-09-10] MEDS: MORPHINE SULFATE (*CRX) 4 MG/ML INJ 2 MG IV PUSH ×2 (17:58→21:55)
[2025-09-10] MEDS: MELATONIN 5 MG TABLET PO (21:56)
[2025-09-10 22:00] VITALS: BP 152/76; PULSE 113; RESP 20; TEMP 37.3; O2SAT 96
[2025-09-10 22:58] VITALS: O2SAT 96
[2025-09-11] MEDS: diazePAM INJ (*CRX) 10 MG/2 ML SYRINGE IV PUSH (00:21)
[2025-09-11] MEDS: ONDANSETRON INJ 4 MG/2 ML VIAL IV PUSH ×2 (01:52→05:47)
[2025-09-11] MEDS: KETOROLAC 15 MG/ML VIAL (*BKC) IV PUSH ×4 (02:07→20:42)
[2025-09-11] MEDS: MORPHINE SULFATE (*CRX) 4 MG/ML INJ 2 MG IV PUSH (05:47)
[2025-09-11] MEDS: AMINO ACIDS 4.25%/D5W/LYTES/CA 1,000 ML 80 ML IV CONT ×2 (05:47→18:58)
[2025-09-11 06:00] VITALS: BP 144/87; PULSE 97; RESP 20; TEMP 36.9; O2SAT 99
[2025-09-11 06:05] LABS: Hematocrit 40.1 % (42.0-52.0); Hemoglobin 13.8 g/dL (14.0-18.0); Immature Granulocyte Percent A 0.7 % (0-0.5); Lymphocytes Absolute Auto 2.12 K/mm3 (0.9-3.2); Mean Corpuscular HGB Conc 34.4 g/dl (32-36); Mean Corpuscular Hemoglobin 31.9 pg (26-34); Mean Corpuscular Volume 92.6 fl (80-100); Nucleated Red Blood Cells Absolute Auto 0.000 K/mm3 (0.0-0.012); Nucleated Red Blood Cells Perc 0.0 % (0.0-0.2); Platelet Count Result 393 k/mm3 (150-375); Red Blood Count 4.33 M/mm3 (4.6-6.20); White Blood Count 10.5 K/mm3 (4.5-10.0)
[2025-09-11 06:25] LABS: Alanine Aminotransferase 18 U/L (6-50); Albumin Level 3.4 g/dL (3.5-5.1); Alkaline Phosphatase 74 U/L (38-126); Anion Gap 7 mmol/L (4-12); Aspartate Amino Transferase 35 U/L (17-59); Bilirubin,Total 0.7 mg/dL (0.2-1.3); Blood Urea Nitrogen 14 mg/dL (9-20); Calcium 8.4 mg/dL (8.4-10.2); Carbon Dioxide 29 mmol/L (22-30); Chloride 97 mmol/L (98-107); Estimated CRCL calculation 100 ml/min; Estimated Glomerular Filt Rate > 60; Glucose 92 mg/dL (65-110); Magnesium 2.3 mg/dL (1.6-2.3); Potassium 3.9 mmol/L (3.4-5.0); Sodium 133 mmol/L (137-145); Total Protein 6.8 g/dL (6.3-8.2)
--- NOTE | 2025-09-11 06:43 | PC.NURSE ---
0600:pt's NG tube no output after midnight; NG taped in place, flushed; Hospitalist notified; Xray done. Per hospitalist slightly kinked but appears to be in the stomach. Watch for official read. No new pt symptom.
--- NOTE | 2025-09-11 07:40 | P.PNGS_ITS ---
Progress Note: A&P Assessment and Plan (1) Internal hernia: Code(s): K45.8 - Other specified abdominal hernia without obstruction or gangrene <Fortunato Sears, DO - Last Filed: 09/11/25 12:44> Status: Acute <Fortunato Sears, DO - Last Filed: 09/11/25 12:44> Assessment and Plan: s/p repair, currently passing a lot of flatus, encourage OOB/IS, will plan to clamp NGT and trial CLD today, cont PPN until patient tolerating approximately 50% of his meals <Fortunato Sears, DO - Last Filed: 09/11/25 12:44> Subjective Subjective Date/Time Seen: 09/11/25 07:40 <Fortunato Sears, DO - Last Filed: 09/11/25 12:44> Interval history: NAEON. Resting in bed comfortably this am. Incisions CDI. NGT in place, only about 200 cc output overnight. Reports passing a lot of flatus. Abdominal pain improving. KUB this am, contrast appears to be in cecum, air in colon throughout, NGT in good position. <Fortunato Sears, DO - Last Filed: 09/11/25 12:44> Review of Systems Review of Systems: All systems reviewed & are unremarkable except as noted in HPI and below <Fortunato Sears, DO - Last Filed: 09/11/25 12:44> Exam Const: General: cooperative, no acute distress and uncomfortable <Fortunato Sears DO - Last Filed: 09/11/25 12:44> Resp: Auscultation: clear to auscultation bilaterally <Fortunato Sears, DO - Last Filed: 09/11/25 12:44> Cardio: Rate: regular rate <Fortunato Sears DO - Last Filed: 09/11/25 12:44> Rhythm: regular rhythm <Fortunato Sears DO - Last Filed: 09/11/25 12:44> GI: Inspection: normal to inspection, distended and incision <Fortunato Sears DO - Last Filed: 09/11/25 12:44> GI Palp: Yes abdominal tenderness and Yes Soft to palpation <Fortunato Sears DO - Last Filed: 09/11/25 12:44> Objective Data Vital Signs Vital Signs: Vital Signs - 24 hr 09/10/25 08:00 09/10/25 08:29 09/10/25 14:00 Temperature 98.3 F Pulse Rate 96 96 121 H Respiratory Rate 16 18 Blood Pressure 144/85 H Pulse Oximetry 97 97 97 Oxygen Delivery Room Air Room Air Fraction of Inspired Oxygen 21 21 09/10/25 22:00 09/10/25 22:58 09/11/25 06:00 Temperature 99.1 F 98.5 F Pulse Rate 113 H 97 Respiratory Rate 20 20 Blood Pressure 152/76 H 144/87 H Pulse Oximetry 96 96 99 Oxygen Delivery Room Air Fraction of Inspired Oxygen <Fortunato Sears DO - Last Filed: 09/11/25 12:44> Intake/Output Intake/Output: Intake & Output 09/08/25 09/09/25 09/10/25 09/11/25 23:59 23:59 23:59 23:59 Intake Total 1343.1 3138.5 1090 1000 Output Total 3600 3410 3450 500 Balance -2256.9 -271.5 -2360 500 <Fortunato Sears DO - Last Filed: 09/11/25 12:44> Meds/Results Medications: Active Medications Generic Name Dose Route Start Last Admin Trade Name Freq PRN Reason Stop Dose Admin Acetaminophen 650 mg 09/05/25 17:44 Acetaminophen 650 Mg Suppository RECTAL Q6H PRN Mild Pain (1-3) or Fever Alprazolam 0.5 mg 09/07/25 10:30 09/10/25 16:18 Alprazolam (*Crx) 0.5 Mg Tablet PO 0.5 mg TID MANDA Administration Buspirone HCl 10 mg 09/08/25 13:08 09/09/25 17:37 Buspirone Hcl 10 Mg Tablet PO 10 mg TID PRN Administration Anxiety Diazepam 2.5 - 5 mg 09/05/25 23:05 09/11/25 00:21 Diazepam Inj (*Crx) 10 Mg/2 Ml Syringe IV PUSH 5 mg Q4H PRN Administration Anxiety Enoxaparin Sodium 40 mg 09/05/25 09:00 09/10/25 08:55 Enoxaparin 40 Mg/0.4 Ml Syringe SUB-Q 40 mg DAILY MANDA Administration Famotidine 20 mg 09/04/25 21:00 09/10/25 20:18 Famotidine 20 Mg/2 Ml Vial IV PUSH 20 mg Q12HR MANDA Administration Dextrose 1,000 mls @ 50 mls/hr 09/08/25 13:48 Dextrose 10% IV CONT .Q20H PRN if PN is interrupted Fat Emulsion Intravenous 250 mls @ 20.833 mls/hr 09/08/25 15:00 09/10/25 16:19 Lipids 20% IVPB 20.83 mls/hr Q24H MANDA Administration Amino Acids/Electrolytes/Dextrose 1,000 mls @ 80 mls/hr 09/10/25 18:00 09/11/25 05:47 Clinimix E 4.25%/5% Solution IV CONT 80 mls/hr .[id number] MANDA Administration Protocol Ketorolac Tromethamine 15 mg 09/10/25 13:38 09/11/25 02:07 Ketorolac 15 Mg/Ml Vial (*Bkc) IV PUSH 15 mg Q6H PRN Administration Pain Rated 4-6 Melatonin 5 mg 09/09/25 21:00 09/10/25 21:56 Melatonin 5 Mg Tablet PO 5 mg HS MANDA Administration Morphine Sulfate 4 mg 09/10/25 13:36 Morphine Sulfate (*Crx) 4 Mg/Ml Inj IV PUSH Q4H PRN Pain Rated 7-10 Morphine Sulfate 2 mg 09/10/25 13:37 09/11/25 05:47 Morphine Sulfate (*Crx) 4 Mg/Ml Inj IV PUSH 2 mg Q4H PRN Administration Pain Rated 7-10 Ondansetron HCl 4 mg 09/04/25 09:10 09/11/25 05:47 Ondansetron Inj 4 Mg/2 Ml Vial IV PUSH 4 mg Q4H PRN Administration Nausea Phenol 1 spray 09/04/25 16:44 Phenol/Sod Pheno [place] (*Bkc) MUCOUS MEM PRN PRN Sore Throat <Fortunato Sears, DO - Last Filed: 09/11/25 12:44> Radiology Results: ITS Impressions Abdomen/Pelvis CT 09/04/25 07:02 IMPRESSION: 1. Dilated small bowel, which may be adynamic ileus or less likely distal small bowel obstruction. Small Bowel X-Ray 09/08/25 14:26 IMPRESSION: 1. Persistent multiple dilated gas-filled loops of small bowel no significant progression of contrast beyond the proximal ileum or 3 hours of imaging consistent with small bowel obstruction versus severe ileus. <Fortunato Sears, DO - Last Filed: 09/11/25 12:44> Labs Labs: Laboratory Results - last 24 hr 09/10/25 09/10/25 09/11/25 11:39 17:00 00:20 WBC RBC Hgb Hct MCV MCH MCHC RDW Plt Count MPV Immature Gran % (Auto) Neut % (Auto) Lymph % (Auto) [place] % (Auto) Eos % (Auto) Baso % (Auto) Lymph # (Auto) [place] # (Auto) Eos # (Auto) Baso # (Auto) Abs Immat Gran (auto) Absolute Neuts (auto) Absolute Nucleated RBC Nucleated RBC % Sodium Potassium Chloride Carbon Dioxide Anion Gap BUN Creatinine Estim Creat Clear Calc Estimated GFR Glucose POC Capillary Glucose 106 H 96 115 H Calcium Phosphorus Magnesium Total Bilirubin AST ALT Alkaline Phosphatase Total Protein Albumin 09/11/25 09/11/25 05:44 06:32 WBC 10.5 H RBC 4.33 L Hgb 13.8 L Hct 40.1 L MCV 92.6 MCH 31.9 MCHC 34.4 RDW 12.0 Plt Count 393 H MPV 8.7 Immature Gran % (Auto) 0.7 H Neut % (Auto) 65.6 Lymph % (Auto) 20.3 [place] % (Auto) 11.1 H Eos % (Auto) 1.5 Baso % (Auto) 0.8 Lymph # (Auto) 2.12 [place] # (Auto) 1.2 H Eos # (Auto) 0.2 Baso # (Auto) 0.1 Abs Immat Gran (auto) 0.07 H Absolute Neuts (auto) 6.9 H Absolute Nucleated RBC 0.000 Nucleated RBC % 0.0 Sodium 133 L Potassium 3.9 Chloride 97 L Carbon Dioxide 29 Anion Gap 7 BUN 14 Creatinine 0.86 Estim Creat Clear Calc 100 Estimated GFR > 60 Glucose 92 POC Capillary Glucose 108 H Calcium 8.4 Phosphorus 3.8 Magnesium 2.3 Total Bilirubin 0.7 AST 35 ALT 18 Alkaline Phosphatase 74 Total Protein 6.8 Albumin 3.4 L <Fortunato Sears, DO - Last Filed: 09/11/25 12:44> Attestation Supervising Provider Attestation I, Gale Garrison MD, have provided a substantive portion of the care of this patient. I performed the history, exam and/or medical decision making for this encounter. will clamp NG, hopefully remove later today and start clears, encourage OOB/IS Gale Garrison MD 09/11/25;13:03 <Gale Garrison MD - Last Filed: 09/11/25 13:03>
[2025-09-11] MEDS: FAMOTIDINE 20 MG/2 ML VIAL IV PUSH ×2 (08:15→20:42)
[2025-09-11] MEDS: ALPRAZolam (*CRX) 0.5 MG TABLET PO (08:15)
--- NOTE | 2025-09-11 08:36 | P.PNIM_ITS ---
Progress Note: A&P Assessment and Plan (1) Anxiety about treatment: Code(s): R45.89 - Other symptoms and signs involving emotional state Status: Acute Assessment and Plan: Medications adjusted BusPar a known changed from p.r.n. to t.i.d., as BusPar works best a scheduled med Xanax changed from t.i.d. to p.r.n. (2) Small bowel obstruction: Code(s): K56.609 - Unspecified intestinal obstruction, unspecified as to partial versus complete obstruction Status: Acute Assessment and Plan: Robotic assisted bilateral inguinal hernia repair with mesh by Dr. Garrison on 08/28/25 -Continue with NG to low intermittent suction -Okay to clamped tube for walks and meds -NPO sips with meds okay for ice chips -Try to avoid narcotics as his could make small-bowel obstruction take longer to resolve PPN 09/09/2025 patient return to OR Waiting for return bowel function Time Spent With Patient Time with patient: 25 - 35 minutes Subjective Date/time seen: 09/11/25 08:36 Interval history: 35 year old male who underwent robotic assisted bilateral inguinal hernia repair with mesh by Dr. Garrison on 08/28/25 presented back to the hospital with small-bowel obstruction on 09/04/2025, taken back to OR on 09/09/2025 for small- bowel obstruction currently on PPN waiting for return bowel function. KUB from this morning shows contrast throughout the intestinal tract, no signs of small-bowel obstruction Anxiety med adjusted Review of Systems Review of Systems: 12 systems were reviewed and are negativ e except for as per HPI. Exam Narrative: General: well appearing, appears stated age. HEENT: normocephalic, atraumatic. Mucous membranes moist. EOMI, PERRLA, bilateral sclera anicteric, no conjunctival injection. Neck supple without JVD, lymphadenopathy, or bruit. NG tube minimal dark brown Respiratory: clear bilaterally. No rales/rhonic/wheezes. Cardiovascular: Regular rate and rhythm, normal S1-S2. No murmurs, rubs, or clicks. PMI is nondisplaced, capillary refill less than 3 second. Abdomen: flat soft with a 4 inch midline incision. Extremities: No cyanosis, clubbing, or edema present. Pulses are palpable 2/2. Active ROM to all four extremities. Neuro: Alert and orientated x 4. PERRLA. Cranial nerves 2-12 intact without focal deficit. Skin: Warm, dry, and intact, without rash, erythema, or lesion. Psych: pleasant, cooperative, normal speech, normal affect, no hallucinations, no dysarthia Objective Data Vital Signs Vital Signs: Vital Signs - 24 hr 09/10/25 14:00 09/10/25 22:00 09/10/25 22:58 Temperature 98.3 F 99.1 F Pulse Rate 121 H 113 H Respiratory Rate 18 20 Blood Pressure 144/85 H 152/76 H Pulse Oximetry 97 96 96 Oxygen Delivery Room Air 09/11/25 06:00 Temperature 98.5 F Pulse Rate 97 Respiratory Rate 20 Blood Pressure 144/87 H Pulse Oximetry 99 Oxygen Delivery Intake/Output Intake/Output: Intake & Output 09/08/25 09/09/25 09/10/25 09/11/25 23:59 23:59 23:59 23:59 Intake Total 1343.1 3138.5 1090 1000 Output Total 3600 3410 3450 500 Balance -2256.9 -271.5 -2360 500 Meds/Results Medications: Active Medications Generic Name Dose Route Start Last Admin Trade Name Freq PRN Reason Stop Dose Admin Acetaminophen 650 mg 09/05/25 17:44 Acetaminophen 650 Mg Suppository RECTAL Q6H PRN Mild Pain (1-3) or Fever Alprazolam 0.5 mg 09/07/25 10:30 09/11/25 08:15 Alprazolam (*Crx) 0.5 Mg Tablet PO 0.5 mg TID MANDA Administration Buspirone HCl 10 mg 09/08/25 13:08 09/09/25 17:37 Buspirone Hcl 10 Mg Tablet PO 10 mg TID PRN Administration Anxiety Diazepam 2.5 - 5 mg 09/05/25 23:05 09/11/25 00:21 Diazepam Inj (*Crx) 10 Mg/2 Ml Syringe IV PUSH 5 mg Q4H PRN Administration Anxiety Enoxaparin Sodium 40 mg 09/05/25 09:00 09/11/25 08:14 Enoxaparin 40 Mg/0.4 Ml Syringe SUB-Q Not Given DAILY MANDA Famotidine 20 mg 09/04/25 21:00 09/11/25 08:15 Famotidine 20 Mg/2 Ml Vial IV PUSH 20 mg Q12HR MANDA Administration Dextrose 1,000 mls @ 50 mls/hr 09/08/25 13:48 Dextrose 10% IV CONT .Q20H PRN if PN is interrupted Fat Emulsion Intravenous 250 mls @ 20.833 mls/hr 09/08/25 15:00 09/10/25 16:19 Lipids 20% IVPB 20.83 mls/hr Q24H MANDA Administration Amino Acids/Electrolytes/Dextrose 1,000 mls @ 80 mls/hr 09/10/25 18:00 09/11/25 05:47 Clinimix E 4.25%/5% Solution IV CONT 80 mls/hr .[id number] MANDA Administration Protocol Ketorolac Tromethamine 15 mg 09/10/25 13:38 09/11/25 02:07 Ketorolac 15 Mg/Ml Vial (*Bkc) IV PUSH 15 mg Q6H PRN Administration Pain Rated 4-6 Melatonin 5 mg 09/09/25 21:00 09/10/25 21:56 Melatonin 5 Mg Tablet PO 5 mg HS MANDA Administration Morphine Sulfate 4 mg 09/10/25 13:36 Morphine Sulfate (*Crx) 4 Mg/Ml Inj IV PUSH Q4H PRN Pain Rated 7-10 Morphine Sulfate 2 mg 09/10/25 13:37 09/11/25 05:47 Morphine Sulfate (*Crx) 4 Mg/Ml Inj IV PUSH 2 mg Q4H PRN Administration Pain Rated 7-10 Ondansetron HCl 4 mg 09/04/25 09:10 09/11/25 05:47 Ondansetron Inj 4 Mg/2 Ml Vial IV PUSH 4 mg Q4H PRN Administration Nausea Phenol 1 spray 09/04/25 16:44 Phenol/Sod Pheno [place] (*Bkc) MUCOUS MEM PRN PRN Sore Throat Radiology Results: ITS Impressions Abdomen/Pelvis CT 09/04/25 07:02 IMPRESSION: 1. Dilated small bowel, which may be adynamic ileus or less likely distal small bowel obstruction. Small Bowel X-Ray 09/08/25 14:26 IMPRESSION: 1. Persistent multiple dilated gas-filled loops of small bowel no significant progression of contrast beyond the proximal ileum or 3 hours of imaging consistent with small bowel obstruction versus severe ileus. Abdomen X-Ray 09/11/25 08:18 IMPRESSION: 1. Nasal gastric tube in the stomach. Labs Labs: Laboratory Results - last 24 hr 09/10/25 09/10/25 09/11/25 11:39 17:00 00:20 WBC RBC Hgb Hct MCV MCH MCHC RDW Plt Count MPV Immature Gran % (Auto) Neut % (Auto) Lymph % (Auto) [place] % (Auto) Eos % (Auto) Baso % (Auto) Lymph # (Auto) [place] # (Auto) Eos # (Auto) Baso # (Auto) Abs Immat Gran (auto) Absolute Neuts (auto) Absolute Nucleated RBC Nucleated RBC % Sodium Potassium Chloride Carbon Dioxide Anion Gap BUN Creatinine Estim Creat Clear Calc Estimated GFR Glucose POC Capillary Glucose 106 H 96 115 H Calcium Phosphorus Magnesium Total Bilirubin AST ALT Alkaline Phosphatase Total Protein Albumin 09/11/25 09/11/25 05:44 06:32 WBC 10.5 H RBC 4.33 L Hgb 13.8 L Hct 40.1 L MCV 92.6 MCH 31.9 MCHC 34.4 RDW 12.0 Plt Count 393 H MPV 8.7 Immature Gran % (Auto) 0.7 H Neut % (Auto) 65.6 Lymph % (Auto) 20.3 [place] % (Auto) 11.1 H Eos % (Auto) 1.5 Baso % (Auto) 0.8 Lymph # (Auto) 2.12 [place] # (Auto) 1.2 H Eos # (Auto) 0.2 Baso # (Auto) 0.1 Abs Immat Gran (auto) 0.07 H Absolute Neuts (auto) 6.9 H Absolute Nucleated RBC 0.000 Nucleated RBC % 0.0 Sodium 133 L Potassium 3.9 Chloride 97 L Carbon Dioxide 29 Anion Gap 7 BUN 14 Creatinine 0.86 Estim Creat Clear Calc 100 Estimated GFR > 60 Glucose 92 POC Capillary Glucose 108 H Calcium 8.4 Phosphorus 3.8 Magnesium 2.3 Total Bilirubin 0.7 AST 35 ALT 18 Alkaline Phosphatase 74 Total Protein 6.8 Albumin 3.4 L
[2025-09-11 14:00] VITALS: BP 136/84; PULSE 94; RESP 20; TEMP 37.1; O2SAT 98
[2025-09-11 14:21] LABS: Triglycerides 305 mg/dL (<150)
[2025-09-11] MEDS: FAT EMULSIONS IV 20% 250 ML 20.83 ML IVPB (15:17)
--- NOTE | 2025-09-11 19:00 | PC.NURSE ---
I have reviewed the License Pending Nurse Lor Vieira's documentation and agree with charting.
[2025-09-11 20:00] VITALS: BP 165/91; PULSE 96; RESP 16; TEMP 36.9; O2SAT 98
[2025-09-11] MEDS: MELATONIN 5 MG TABLET PO (20:43)
[2025-09-12] VITALS (8 sets, daily range): BP systolic 117–162; BP diastolic 83–95; PULSE 88–108; RESP 16–18; TEMP 37–39.5; O2SAT 96–100
[2025-09-12] MEDS: diazePAM INJ (*CRX) 10 MG/2 ML SYRINGE IV PUSH (00:01)
[2025-09-12] MEDS: KETOROLAC 15 MG/ML VIAL (*BKC) IV PUSH ×4 (02:14→19:52)
[2025-09-12] MEDS: ALPRAZolam (*CRX) 0.5 MG TABLET PO (03:52)
[2025-09-12 06:51] LABS: Anion Gap 11 mmol/L (4-12); Blood Urea Nitrogen 17 mg/dL (9-20); Calcium 9.0 mg/dL (8.4-10.2); Carbon Dioxide 27 mmol/L (22-30); Chloride 96 mmol/L (98-107); Estimated CRCL calculation 91 ml/min; Estimated Glomerular Filt Rate > 60; Glucose 109 mg/dL (65-110); Potassium 4.4 mmol/L (3.4-5.0); Sodium 134 mmol/L (137-145)
[2025-09-12] MEDS: AMINO ACIDS 4.25%/D5W/LYTES/CA 1,000 ML 80 ML IV CONT ×2 (08:32→22:28)
[2025-09-12] MEDS: FAMOTIDINE 20 MG/2 ML VIAL IV PUSH (08:32)
--- NOTE | 2025-09-12 08:38 | P.PNGS_ITS ---
Progress Note: A&P Assessment and Plan (1) Internal hernia: Code(s): K45.8 - Other specified abdominal hernia without obstruction or gangrene Status: Acute Assessment and Plan: s/p repair, currently passing a lot of flatus, did have 1 small bowel movement over interval, encourage OOB/IS, will plan to remove NGT and continue CLD today, possibly advanced to regular diet for lunch, cont PPN until patient tolerating approximately 50% of regular diet Please see attending attestation for further plan updates Subjective Subjective Date/Time Seen: 09/12/25 08:38 Interval history: NAEON. NG tube clamped all day yesterday. Tolerated CLD without increasing na usea, vomiting, bloating, or pain. Patient continues to pass flatus. Did have 1 small bowel movement yesterday. Incision CDI. Review of Systems Review of Systems: All systems reviewed & are unremarkable except as noted in HPI and below Exam Const: General: cooperative, no acute distress and uncomfortable Resp: Auscultation: clear to auscultation bilaterally Cardio: Rate: regular rate Rhythm: regular rhythm GI: Inspection: normal to inspection, distended and incision GI Palp: Yes abdominal tenderness and Yes Soft to palpation Objective Data Vital Signs Vital Signs: Vital Signs - 24 hr 09/11/25 14:00 09/11/25 20:00 09/12/25 05:30 Temperature 98.7 F 98.5 F 98.9 F Pulse Rate 94 96 108 H Respiratory Rate 20 16 16 Blood Pressure 136/84 165/91 H 162/95 H Pulse Oximetry 98 98 98 Intake/Output Intake/Output: Intake & Output 09/09/25 09/10/25 09/11/25 09/12/25 23:59 23:59 23:59 23:59 Intake Total 3138.5 1090 2250 1360 Output Total 3410 3450 665 Balance -271.5 -2360 1585 1360 Meds/Results Medications: Active Medications Generic Name Dose Route Start Last Admin Trade Name Freq PRN Reason Stop Dose Admin Acetaminophen 650 mg 09/05/25 17:44 Acetaminophen 650 Mg Suppository RECTAL Q6H PRN Mild Pain (1-3) or Fever Alprazolam 0.5 mg 09/11/25 08:44 09/12/25 03:52 Alprazolam (*Crx) 0.5 Mg Tablet PO 0.5 mg TID PRN Administration Anxiety Buspirone HCl 10 mg 09/11/25 09:00 09/12/25 08:29 Buspirone Hcl 10 Mg Tablet PO 10 mg TID MANDA Administration Diazepam 2.5 - 5 mg 09/05/25 23:05 09/12/25 00:01 Diazepam Inj (*Crx) 10 Mg/2 Ml Syringe IV PUSH 5 mg Q4H PRN Administration Anxiety Enoxaparin Sodium 40 mg 09/05/25 09:00 09/12/25 08:29 Enoxaparin 40 Mg/0.4 Ml Syringe SUB-Q Not Given DAILY MANDA Famotidine 20 mg 09/04/25 21:00 09/12/25 08:32 Famotidine 20 Mg/2 Ml Vial IV PUSH 20 mg Q12HR MANDA Administration Dextrose 1,000 mls @ 50 mls/hr 09/08/25 13:48 Dextrose 10% IV CONT .Q20H PRN if PN is interrupted Fat Emulsion Intravenous 250 mls @ 20.833 mls/hr 09/08/25 15:00 09/11/25 15:17 Lipids 20% IVPB 20.83 mls/hr Q24H MANDA Administration Amino Acids/Electrolytes/Dextrose 1,000 mls @ 80 mls/hr 09/10/25 18:00 09/12/25 08:32 Clinimix E 4.25%/5% Solution IV CONT 80 mls/hr .[id number] MANDA Administration Protocol Ketorolac Tromethamine 15 mg 09/11/25 09:00 09/12/25 08:29 Ketorolac 15 Mg/Ml Vial (*Bkc) IV PUSH 15 mg Q6H MANDA Administration Melatonin 5 mg 09/09/25 21:00 09/11/25 20:43 Melatonin 5 Mg Tablet PO 5 mg HS MANDA Administration Miscellaneous Information 1 each 09/12/25 00:01 Tpn Needs To Be Renewed Or It Will Automatically Discontinue. XX 10/12/25 00:00 CLARIFY MANDA Morphine Sulfate 4 mg 09/10/25 13:36 Morphine Sulfate (*Crx) 4 Mg/Ml Inj IV PUSH Q4H PRN Pain Rated 7-10 Morphine Sulfate 2 mg 09/10/25 13:37 09/11/25 05:47 Morphine Sulfate (*Crx) 4 Mg/Ml Inj IV PUSH 2 mg Q4H PRN Administration Pain Rated 7-10 Ondansetron HCl 4 mg 09/04/25 09:10 09/11/25 05:47 Ondansetron Inj 4 Mg/2 Ml Vial IV PUSH 4 mg Q4H PRN Administration Nausea Phenol 1 spray 09/04/25 16:44 Phenol/Sod Pheno [place] (*Bkc) MUCOUS MEM PRN PRN Sore Throat Radiology Results: ITS Impressions Abdomen/Pelvis CT 09/04/25 07:02 IMPRESSION: 1. Dilated small bowel, which may be adynamic ileus or less likely distal small bowel obstruction. Small Bowel X-Ray 09/08/25 14:26 IMPRESSION: 1. Persistent multiple dilated gas-filled loops of small bowel no significant progression of contrast beyond the proximal ileum or 3 hours of imaging consistent with small bowel obstruction versus severe ileus. Abdomen X-Ray 09/11/25 08:18 IMPRESSION: 1. Nasal gastric tube in the stomach. Labs Labs: Laboratory Results - last 24 hr 09/11/25 09/11/25 09/11/25 12:01 14:00 23:55 Sodium Potassium Chloride Carbon Dioxide Anion Gap BUN Creatinine Estim Creat Clear Calc Estimated GFR Glucose POC Capillary Glucose 107 H 116 H Calcium Phosphorus Triglycerides 305 H 09/12/25 06:05 Sodium 134 L Potassium 4.4 Chloride 96 L Carbon Dioxide 27 Anion Gap 11 BUN 17 Creatinine 0.95 Estim Creat Clear Calc 91 Estimated GFR > 60 Glucose 109 POC Capillary Glucose Calcium 9.0 Phosphorus 3.7 Triglycerides
--- NOTE | 2025-09-12 09:40 | P.PNIM_ITS ---
Progress Note: A&P Assessment and Plan (1) Fever: Code(s): R50.9 - Fever, unspecified Status: Acute Assessment and Plan: Fever 103.1 --Check CBC, ESR, CRP, procalcitonin, CMP, COVID/FLU/RSV, UA, though asympt omatic --Blood cultures x2 --KUB, Chest x-ray --May need a CT CAP if unclear etiology or worsening --Empiric antibiotics pending preliminary workup/imaging & cultures. Start Cefepime, Flagyl, Vancomycin --Does not have a central line, is on PPN. Could consider fungal source, start Micafungin, if persistent fevers or new hypotension. Blood pressure is trending down from prior 162/95 this morning, now 117/83 --NS Fluids x1 liter 200/hr x5 hours. Then Bolus prn --VS q4 (2) Small bowel obstruction: Code(s): K56.609 - Unspecified intestinal obstruction, unspecified as to partial versus complete obstruction Status: Acute Assessment and Plan: Robotic assisted bilateral inguinal hernia repair with mesh by Dr. Garrison on 08/28/25 NG tube removed today. Denies nausea. Ate a small amount for dinner -Try to avoid narcotics as his could make small-bowel obstruction take longer to resolve PPN 09/09/2025 patient return to OR Reports he had a small BM yesterday, none today, but is passing gas today Has abdominal distention but feels it's about the same, pain also about the same Repeating KUB with fever Will likely check a CT unless positive viral swab (3) Anxiety about treatment: Code(s): R45.89 - Other symptoms and signs involving emotional state Status: Acute Assessment and Plan: Medications adjusted BusPar a known changed from p.r.n. to t.i.d., as BusPar works best a scheduled med Xanax changed from t.i.d. to p.r.n. Time Spent With Patient Time: 65 minutes Subjective Date/time seen: 09/12/25 17:20 Interval history: New fever, 103.1 tonight. Resending labs, cultures, flu/covid/RSV swab, chest- xray, KUB. Reports he has had a productive cough, but has been clear. Feeling fatigued. No sore throat Has abdominal distention and pain but feels it's about the same. Is passing gas today but hasn't had a BM. Reason for hospitalization 35 year old male who underwent robotic assisted bilateral inguinal hernia repair with mesh by Dr. Garrison on 08/28/25 presented back to the hospital with small-bowel obstruction on 09/04/2025, taken back to OR on 09/09/2025 for small- bowel obstruction currently on PPN waiting for return bowel function. Surgery following: NGT removed, diet advanced. Denies nausea but didn't eat much today. Didn't like the food, ate some potatoes. Continuing PPN until patient tolerating approximately 50% of regular diet Review of Systems Review of Systems: 12 systems were reviewed and are negativ e except for as per HPI. All systems reviewed & are unremarkable except as noted in HPI and below Psychiatric: Psychiatric: Reports anxiety Exam Narrative: General: well appearing, appears stated age. HEENT: normocephalic, atraumatic. Mucous membranes moist. EOMI, PERRLA, bilateral sclera anicteric, no conjunctival injection. Neck supple without JVD, lymphadenopathy, or bruit. Respiratory: clear bilaterally. No rales/rhonic/wheezes. Cardiovascular: Regular rate and rhythm, normal S1-S2. No murmurs, rubs, or clicks. PMI is nondisplaced, capillary refill less than 3 second. Abdomen: distended, soft, generalized tenderness, surgical incision noninfected appearing, well approximated Extremities: No cyanosis, clubbing, or edema present. Pulses are palpable 2/2. Active ROM to all four extremities. Neuro: Alert and orientated x 4. PERRLA. Cranial nerves 2-12 intact without focal deficit. Skin: Warm, dry, and intact, without rash, erythema, or lesion. Psych: pleasant, cooperative, normal speech, normal affect, no hallucinations, no dysarthia Objective Data Vital Signs Vital Signs: Vital Signs - 24 hr 09/11/25 14:00 09/11/25 20:00 09/12/25 05:30 Temperature 98.7 F 98.5 F 98.9 F Pulse Rate 94 96 108 H Respiratory Rate 20 16 16 Blood Pressure 136/84 165/91 H 162/95 H Pulse Oximetry 98 98 98 Intake/Output Intake/Output: Intake & Output 09/09/25 09/10/25 09/11/25 09/12/25 23:59 23:59 23:59 23:59 Intake Total 3138.5 1090 2250 1360 Output Total 3410 3450 665 Balance -271.5 -2360 1585 1360 Meds/Results Medications: Active Medications Generic Name Dose Route Start Last Admin Trade Name Freq PRN Reason Stop Dose Admin Acetaminophen 650 mg 09/05/25 17:44 Acetaminophen 650 Mg Suppository RECTAL Q6H PRN Mild Pain (1-3) or Fever Alprazolam 0.5 mg 09/11/25 08:44 09/12/25 03:52 Alprazolam (*Crx) 0.5 Mg Tablet PO 0.5 mg TID PRN Administration Anxiety Buspirone HCl 10 mg 09/11/25 09:00 09/12/25 08:29 Buspirone Hcl 10 Mg Tablet PO 10 mg TID MANDA Administration Diazepam 2.5 - 5 mg 09/05/25 23:05 09/12/25 00:01 Diazepam Inj (*Crx) 10 Mg/2 Ml Syringe IV PUSH 5 mg Q4H PRN Administration Anxiety Enoxaparin Sodium 40 mg 09/05/25 09:00 09/12/25 08:29 Enoxaparin 40 Mg/0.4 Ml Syringe SUB-Q Not Given DAILY MNADA Famotidine 20 mg 09/04/25 21:00 09/12/25 08:32 Famotidine 20 Mg/2 Ml Vial IV PUSH 20 mg Q12HR MANDA Administration Dextrose 1,000 mls @ 50 mls/hr 09/08/25 13:48 Dextrose 10% IV CONT .Q20H PRN if PN is interrupted Fat Emulsion Intravenous 250 mls @ 20.833 mls/hr 09/08/25 15:00 09/11/25 15:17 Lipids 20% IVPB 20.83 mls/hr Q24H MANDA Administration Amino Acids/Electrolytes/Dextrose 1,000 mls @ 80 mls/hr 09/10/25 18:00 09/12/25 08:32 Clinimix E 4.25%/5% Solution IV CONT 80 mls/hr .[id number] MANDA Administration Protocol Ketorolac Tromethamine 15 mg 09/11/25 09:00 09/12/25 08:29 Ketorolac 15 Mg/Ml Vial (*Bkc) IV PUSH 15 mg Q6H MANDA Administration Melatonin 5 mg 09/09/25 21:00 09/11/25 20:43 Melatonin 5 Mg Tablet PO 5 mg HS MANDA Administration Miscellaneous Information 1 each 09/12/25 00:01 Tpn Needs To Be Renewed Or It Will Automatically Discontinue. XX 10/12/25 00:00 CLARIFY MANDA Morphine Sulfate 4 mg 09/10/25 13:36 Morphine Sulfate (*Crx) 4 Mg/Ml Inj IV PUSH Q4H PRN Pain Rated 7-10 Morphine Sulfate 2 mg 09/10/25 13:37 09/11/25 05:47 Morphine Sulfate (*Crx) 4 Mg/Ml Inj IV PUSH 2 mg Q4H PRN Administration Pain Rated 7-10 Ondansetron HCl 4 mg 09/04/25 09:10 09/11/25 05:47 Ondansetron Inj 4 Mg/2 Ml Vial IV PUSH 4 mg Q4H PRN Administration Nausea Phenol 1 spray 09/04/25 16:44 Phenol/Sod Pheno [place] (*Bkc) MUCOUS MEM PRN PRN Sore Throat Radiology Results: ITS Impressions Abdomen/Pelvis CT 09/04/25 07:02 IMPRESSION: 1. Dilated small bowel, which may be adynamic ileus or less likely distal small bowel obstruction. Small Bowel X-Ray 09/08/25 14:26 IMPRESSION: 1. Persistent multiple dilated gas-filled loops of small bowel no significant progression of contrast beyond the proximal ileum or 3 hours of imaging consistent with small bowel obstruction versus severe ileus. Abdomen X-Ray 09/11/25 08:18 IMPRESSION: 1. Nasal gastric tube in the stomach. Labs Labs: Laboratory Results - last 24 hr 09/11/25 09/11/25 09/11/25 12:01 14:00 23:55 Sodium Potassium Chloride Carbon Dioxide Anion Gap BUN Creatinine Estim Creat Clear Calc Estimated GFR Glucose POC Capillary Glucose 107 H 116 H Calcium Phosphorus Triglycerides 305 H 09/12/25 06:05 Sodium 134 L Potassium 4.4 Chloride 96 L Carbon Dioxide 27 Anion Gap 11 BUN 17 Creatinine 0.95 Estim Creat Clear Calc 91 Estimated GFR > 60 Glucose 109 POC Capillary Glucose Calcium 9.0 Phosphorus 3.7 Triglycerides Quality VTE Prophylaxis VTE prophylaxis: mechanical ordered Hospitalist MIPS Advance Care Plan I have confirmed that the patient's Advanced Care Plan is present, code status is documented, or surrogate decision maker is listed in patient medical record.: Yes Medication Reconciliation I have utilized all available resources to obtain, update and review the patients current medications (includes all prescriptions, OTC, herbals, cannabis, and nutritional supplements).: Yes
--- NOTE | 2025-09-12 10:46 | PCNFU ---
Nutrition Follow-Up Complete: Inadequate energy intake related to altered GI function and current diet orders as evidenced by NPO status and pt report Diet order - Progressing. Continue with goal PO tolerance - Progressing. Continue with goal Goal: Pt current nutrition is Regular, full liquid diet. PPN Clinmix E 4.25/5 @ 80 ml/h. Nutrition recommendation: Per MD, discontinue PPN when PO intake At least 50%. Last recorded weight is 66.6 kg. Bowel Motility: +1 BM 09/12 Labs Reviewed: Na 134 Meds Noted: Pepcid, lovenox, zofran Skin: No skin issues Additional Notes: Advanced today to full liquid diet. Had small bowel movement. Continue PPN until intakes >50% per MD. 10% intake at breakfast. Agree with current nutrition care plan and orders. Monitor diet orders, intake, wt, labs. follow up in 3 days.
[2025-09-12] MEDS: FAT EMULSIONS IV 20% 250 ML 20.83 ML IVPB (15:59)
[2025-09-12] MEDS: ACETAMINOPHEN 500 MG TABLET 1000 MG PO (17:13)
[2025-09-12 17:49] LABS: Influenza A QL RT-PCR Negative (Negative); Influenza B QL RT-PCR Negative (Negative); RSV RNA, RT-PCR Negative (Negative); SARS-CoV-2 RNA PCR Negative (Negative)
[2025-09-12] MEDS: SODIUM CHLORIDE 0.9% IV 1,000 ML 200 ML IV CONT (18:03)
[2025-09-12] MEDS: VANCOMYCIN 2,000 MG/NS 500 ML 2,000 MG/500 ML BAG 250 MG IVPB (18:13)
[2025-09-12] MEDS: CEFEPIME 2 GM in SODIUM CHLORIDE 0.9% IV 50 ML 100 ML IVPB (19:52)
[2025-09-12] MEDS: metroNIDAZOLE 500 MG/ISO 100ML 500 MG/100 ML BAG 100 MG IVPB (19:52)
[2025-09-12] MEDS: FAMOTIDINE 20 MG TABLET PO (20:15)
[2025-09-12 20:21] LABS: Hematocrit 35.9 % (42.0-52.0); Hemoglobin 12.6 g/dL (14.0-18.0); Immature Granulocyte Percent A 0.6 % (0-0.5); Lymphocytes Absolute Auto 2.27 K/mm3 (0.9-3.2); Mean Corpuscular HGB Conc 35.1 g/dl (32-36); Mean Corpuscular Hemoglobin 31.9 pg (26-34); Mean Corpuscular Volume 90.9 fl (80-100); Nucleated Red Blood Cells Absolute Auto 0.000 K/mm3 (0.0-0.012); Nucleated Red Blood Cells Perc 0.0 % (0.0-0.2); Platelet Count Result 401 k/mm3 (150-375); Red Blood Count 3.95 M/mm3 (4.6-6.20); White Blood Count 20.7 K/mm3 (4.5-10.0)
[2025-09-12 20:33] LABS: Hypochromasia 1+; Schistocytes None Seen; Stomatocytes 1+
[2025-09-12 20:35] LABS: Alanine Aminotransferase 171 U/L (6-50); Albumin Level 3.6 g/dL (3.5-5.1); Alkaline Phosphatase 148 U/L (38-126); Anion Gap 8 mmol/L (4-12); Aspartate Amino Transferase 208 U/L (17-59); Bilirubin,Total 1.4 mg/dL (0.2-1.3); Blood Urea Nitrogen 18 mg/dL (9-20); Calcium 8.5 mg/dL (8.4-10.2); Carbon Dioxide 27 mmol/L (22-30); Chloride 95 mmol/L (98-107); Estimated CRCL calculation 86 ml/min; Estimated Glomerular Filt Rate > 60; Glucose 110 mg/dL (65-110); Potassium 4.3 mmol/L (3.4-5.0); Sodium 130 mmol/L (137-145); Total Protein 7.3 g/dL (6.3-8.2)
[2025-09-12 20:49] LABS: Procalcitonin 1.0 ng/mL
[2025-09-12 21:14] LABS: Add Urine Microscopic? YES; Appearance Urine Turbid (Clear); Glucose Urine UA Negative (Negative); Leukocyte Esterase Ur 3+ LEU/UL (Negative); Need Manual Microscopic Reviewed; Nitrate Urine Negative (Negative); Specific Grav Ur 1.025 (1.001-1.035)
[2025-09-12 22:42] LABS: CRP 16.8 mg/dL (<1.0)
--- NOTE | 2025-09-12 23:45 | P.PNCROSS_ITS ---
Event Note Event Note Event Note: Patient developed fever elevated white count elevated CRP elevated ESR earlier in the day. Stat CT of the chest abdomen pelvis was obtained. Stat read radiologist called and stated the patient had right lower lobe infiltrate but cannot rule out pulmonary infarct and recommended CTA of the chest to rule out pulmonary embolism. Radiologist also stated that there was some abdominal findings concerning for postoperative changes verses abscess and stated that the details would be available in is no but radiology notice not yet scanned into the system for my review. Patient is not tachycardic or tachypneic and has clinical syndrome most consistent with sepsis. Will hold off on CTA at the moment as I do not want to give the patient a 2nd dose of contrast. Will consider CTA of the chest in a.m. if renal function is stable. At this time will give patient at 1 time dose of therapeutic Lovenox 76 mg. Patient is already on broad-spectrum antibiotic coverage with cefepime and vancomycin. Blood cultures and urine culture were obtained earlier in the day and are pendin g
--- NOTE | 2025-09-12 23:53 | PC.NURSE ---
Addendum entered by Eda Prado RN 09/13/25 06:46: 0640: IV abx overnight; no new complaint; passing gas; voiding with no issue. Pt encouraged to use IS. Pt education provided on lab and imaging results and IV abx and PPN. Needs reinforcement. Waiting for final CT abdomen read this morning. Will continue to minor. Addendum entered by Eda Prado RN 09/13/25 05:41: 0541: pt states feeling better this morning. No new complaoint; vitals stable, low grade fever. Tylenol given Addendum entered by Eda Prado RN 09/13/25 02:11: 0200: Unable to get peripheral lab draw despite multiple attempts by rental boats caretaker and ICU nurse. Used his PIV (R) that was placed few hours ago for d-dimer lab collect. Patient coughed up some blood once. Maybe from NG tube irritation? Will continue to monitor. Vitals stable. Saturating high 90s. No new complaint at this time. Will continue to monitor Addendum entered by Eda Prado RN 09/13/25 02:04: 0003: Lovenox one time dose given Original Note: 2340: radiolgy called to speak to the Dr regarding pt's Ct abdomen, pelvis result. Pt's vitals stable; pt looks tired, denies SoB, chest pain. 2350: CXY and D-dier
[2025-09-13] MEDS: ENOXAPARIN 80 MG/0.8 ML SYRINGE 76 MG SUB-Q ×2 (00:03→17:20)
[2025-09-13] MEDS: diazePAM INJ (*CRX) 10 MG/2 ML SYRINGE IV PUSH (00:06)
--- NOTE | 2025-09-13 00:07 | PM.CCN ---
Critical Care Event Note Summary Narrative: This case had a high probability of a clinically significant, sudden, or life threatening deterioration of this patient's condition which required my full and direct attention, intervention and personal management.
[2025-09-13] MEDS: MORPHINE SULFATE (*CRX) 4 MG/ML INJ 2 MG IV PUSH (01:41)
[2025-09-13 01:53] LABS: Anion Gap 8 mmol/L (4-12); Blood Urea Nitrogen 19 mg/dL (9-20); Calcium 7.8 mg/dL (8.4-10.2); Carbon Dioxide 24 mmol/L (22-30); Chloride 98 mmol/L (98-107); Estimated CRCL calculation 81 ml/min; Estimated Glomerular Filt Rate > 60; Glucose 119 mg/dL (65-110); Potassium 4.2 mmol/L (3.4-5.0); Sodium 130 mmol/L (137-145)
[2025-09-13] MEDS: CEFEPIME 2 GM in SODIUM CHLORIDE 0.9% IV 50 ML 100 ML IVPB ×3 (02:48→17:59)
[2025-09-13] MEDS: KETOROLAC 15 MG/ML VIAL (*BKC) IV PUSH ×4 (02:48→21:00)
[2025-09-13 04:00] VITALS: BP 129/78; PULSE 112; RESP 17; TEMP 37.6; O2SAT 99
[2025-09-13] MEDS: ALPRAZolam (*CRX) 0.5 MG TABLET PO (05:13)
[2025-09-13] MEDS: metroNIDAZOLE 500 MG/ISO 100ML 500 MG/100 ML BAG 100 MG IVPB ×3 (05:13→21:00)
[2025-09-13] MEDS: VANCOMYCIN 1,500 MG/NS 500 ML 1,500 MG/500 ML BAG 250 MG IVPB ×2 (06:32→18:45)
[2025-09-13] MEDS: ACETAMINOPHEN 500 MG TABLET 1000 MG PO (06:32)
[2025-09-13 08:00] VITALS: BP 119/68; PULSE 104; RESP 17; TEMP 35.1; O2SAT 98
--- NOTE | 2025-09-13 08:02 | P.PNIM_ITS ---
Progress Note: A&P Assessment and Plan (1) Sepsis: Code(s): A41.9 - Sepsis, unspecified organism Status: Acute Assessment and Plan: Treatment of fever as noted (2) Fever: Code(s): R50.9 - Fever, unspecified Status: Acute Assessment and Plan: Treating for sepsis--Tachycardic, blood pressure below prior, possible UTI vs pneumonia vs other Fever 103.1 08/12, now afebrile after starting antibiotics 09/12 KUB Colonic ileus, obstruction considered unlikely but not excluded 09/12 Chest x-ray clear COVID/FLU/RSV negative. UA+, dysuria now resolved. Reporting shortness of breath. Was tachycardic, no chest pain WBC 10<20.7 overnight, ESR 57, CRP 16.8, procalcitonin 1, d-dimer elevated in the setting of surgery --Treatment of PE pending CTA, Has been receiving DVT prophylaxis --Follow WBC --Follow Urine culture, Blood cultures, though were drawn after antibiotics --Follow final CT read, clinical exam overall improved -- Started Cefepime, Flagyl, Vancomycin empirically. Continue pending cultures and CT read. Check MRSA PCR. DC Vancomycin if negative --VS q4 (3) Small bowel obstruction: Code(s): K56.609 - Unspecified intestinal obstruction, unspecified as to partial versus complete obstruction Status: Acute Assessment and Plan: Robotic assisted bilateral inguinal hernia repair with mesh by Dr. Garrison on 08/28/25. 09/09/2025 patient return to OR NG tube removed 09/12 and eating some of his meal, poor appetite but doesn't like the food. Denies nausea. -Try to avoid narcotics as his could make small-bowel obstruction take longer to resolve --Reports having BM's and passing gas today --Surgery primary service (4) Anxiety about treatment: Code(s): R45.89 - Other symptoms and signs involving emotional state Status: Acute Assessment and Plan: Medications adjusted BusPar a known changed from p.r.n. to t.i.d., as BusPar works best a scheduled med Xanax changed from t.i.d. to p.r.n. Plan Personally reviewed CT image Time Spent With Patient Time: 48 minutes Subjective Date/time seen: 09/13/25 14:50 Interval history: Now afebrile, feeling better but tired. COVID/Flu/RSV negative. Reports having daily BM's and passing gas. CT abd/pelvis was done overnight, results pending. Repeating CTA this afternoon for question of pulmonary infarct vs pneumonia, also prelim report of possible abdominal infection but clinically stable. Continuing broad spectrum antibiotics pending read and cultures. Repeat BMP pending. D-dimer was elevated but he is also post op so that is expected. He is feeling short of breath and was tachycardic so continuing therapeutic lovenox pending CT read, though could be 2/2 pneumonia also. Tolerating a diet Reason for hospitalization 35 year old male who underwent robotic assisted bilateral inguinal hernia repair with mesh by Dr. Garrison on 08/28/25 presented back to the hospital with s mall-bowel obstruction on 09/04/2025, taken back to OR on 09/09/2025 for small- bowel obstruction currently on PPN waiting for return bowel function. Surgery following: NGT removed, diet advanced. Held diet overnight. Started therapeutic lovenox pending CTA results Review of Systems Review of Systems: 12 systems were reviewed and are negativ e except for as per HPI. All systems reviewed & are unremarkable except as noted in HPI and below Psychiatric: Psychiatric: Reports anxiety Exam Narrative: General: well appearing, appears stated age. HEENT: normocephalic, atraumatic. Mucous membranes moist. EOMI, PERRLA, bilateral sclera anicteric, no conjunctival injection. Neck supple without JVD, lymphadenopathy, or bruit. Respiratory: clear bilaterally. No rales/rhonic/wheezes. Cardiovascular: Regular rate and rhythm, normal S1-S2. No murmurs, rubs, or clicks. PMI is nondisplaced, capillary refill less than 3 second. Abdomen: distended, soft, generalized tenderness, surgical incision noninfected appearing, well approximated Extremities: No cyanosis, clubbing, or edema present. Pulses are palpable 2/2. Active ROM to all four extremities. Neuro: Alert and orientated x 4. PERRLA. Cranial nerves 2-12 intact without focal deficit. Skin: Warm, dry, and intact, without rash, erythema, or lesion. Psych: pleasant, cooperative, normal speech, normal affect, no hallucinations, no dysarthia Objective Data Vital Signs Vital Signs: Vital Signs - 24 hr 09/12/25 08:30 09/12/25 11:04 09/12/25 14:00 Temperature 98.6 F Pulse Rate 88 Respiratory Rate 18 Blood Pressure 117/83 Pulse Oximetry 98 96 100 Oxygen Delivery Room Air Room Air 09/12/25 16:49 09/12/25 17:13 09/12/25 18:29 Temperature 103.1 F H 103.1 F H 100.8 F H Pulse Rate Respiratory Rate Blood Pressure Pulse Oximetry Oxygen Delivery 09/12/25 23:42 09/13/25 04:00 Temperature 99.6 F 99.6 F Pulse Rate 108 H 112 H Respiratory Rate 18 17 Blood Pressure 151/89 H 129/78 Pulse Oximetry 100 99 Oxygen Delivery Intake/Output Intake/Output: Intake & Output 09/10/25 09/11/25 09/12/25 09/13/25 23:59 23:59 23:59 23:59 Intake Total 1090 2250 3288.1 Output Total 3450 665 Balance -2360 1585 3288.1 Meds/Results Medications: Active Medications Generic Name Dose Route Start Last Admin Trade Name Freq PRN Reason Stop Dose Admin Acetaminophen 1,000 mg 09/12/25 16:59 09/13/25 06:32 Acetaminophen 500 Mg Tablet PO 1,000 mg Q6H PRN Administration Mild Pain (1-3) or Fever Alprazolam 0.5 mg 09/11/25 08:44 09/13/25 05:13 Alprazolam (*Crx) 0.5 Mg Tablet PO 0.5 mg TID PRN Administration Anxiety Buspirone HCl 10 mg 09/11/25 09:00 09/12/25 16:44 Buspirone Hcl 10 Mg Tablet PO 10 mg TID MANDA Administration Diazepam 2.5 - 5 mg 09/05/25 23:05 09/13/25 00:06 Diazepam Inj (*Crx) 10 Mg/2 Ml Syringe IV PUSH 5 mg Q4H PRN Administration Anxiety Enoxaparin Sodium 40 mg 09/05/25 09:00 09/12/25 08:29 Enoxaparin 40 Mg/0.4 Ml Syringe SUB-Q Not Given DAILY MANDA Famotidine 20 mg 09/12/25 21:00 09/12/25 20:15 Famotidine 20 Mg Tablet PO 20 mg Q12HR MANDA Administration Dextrose 1,000 mls @ 50 mls/hr 09/08/25 13:48 Dextrose 10% IV CONT .Q20H PRN if PN is interrupted Fat Emulsion Intravenous 250 mls @ 20.833 mls/hr 09/08/25 15:00 09/12/25 22:2 9 Lipids 20% IVPB 20.8 mls/hr Q24H MANDA Infusion Amino Acids/Electrolytes/Dextrose 1,000 mls @ 80 mls/hr 09/10/25 18:00 09/12/25 22:28 Clinimix E 4.25%/5% Solution IV CONT 80 mls/hr .[id number] MANDA Administration Protocol Cefepime HCl 2 gm/ Sodium 50 mls @ 100 mls/hr 09/12/25 18:00 09/13/25 02:48 Chloride IVPB 100 mls/hr Q8H MANDA Administration Metronidazole 500 mg in 100 mls @ 100 mls/hr 09/12/25 20:00 09/13/25 05:13 Flagyl 500 Mg/Iso Soln 100 Ml IVPB 100 mls/hr Q8HR MANDA Administration Vancomycin HCl 1,500 mg in 500 mls @ 250 mls/hr 09/13/25 06:00 09/13/25 06:32 Vancomycin 1,500 Mg/Ns 500 Ml IVPB 250 mls/hr Q12H MANDA Administration Ketorolac Tromethamine 15 mg 09/11/25 09:00 09/13/25 02:48 Ketorolac 15 Mg/Ml Vial (*Bkc) IV PUSH 15 mg Q6H MANDA Administration Melatonin 5 mg 09/09/25 21:00 09/13/25 05:30 Melatonin 5 Mg Tablet PO Not Given HS MANDA Miscellaneous Information 1 each 09/12/25 00:01 Tpn Needs To Be Renewed Or It Will Automatically Discontinue. XX 10/12/25 00:00 CLARIFY MANDA Morphine Sulfate 2 mg 09/10/25 13:37 09/13/25 01:41 Morphine Sulfate (*Crx) 4 Mg/Ml Inj IV PUSH 2 mg Q4H PRN Administration Pain Rated 7-10 Ondansetron HCl 4 mg 09/04/25 09:10 09/11/25 05:47 Ondansetron Inj 4 Mg/2 Ml Vial IV PUSH 4 mg Q4H PRN Administration Nausea Phenol 1 spray 09/04/25 16:44 Phenol/Sod Pheno [place] (*Bkc) MUCOUS MEM PRN PRN Sore Throat Radiology Results: ITS Impressions Abdomen/Pelvis CT 09/04/25 07:02 IMPRESSION: 1. Dilated small bowel, which may be adynamic ileus or less likely distal small bowel obstruction. Small Bowel X-Ray 09/08/25 14:26 IMPRESSION: 1. Persistent multiple dilated gas-filled loops of small bowel no significant progression of contrast beyond the proximal ileum or 3 hours of imaging consistent with small bowel obstruction versus severe ileus. Abdomen X-Ray 09/12/25 17:09 Impression: 1. Colonic ileus, obstruction considered unlikely but not excluded. Follow-up is suggested to assess resolution. If symptoms persist CT is recommended Chest X-Ray 09/12/25 17:09 Impression: No acute cardiopulmonary abnormality. Labs Labs: Laboratory Results - last 24 hr 09/12/25 09/12/25 09/12/25 12:13 17:05 19:02 WBC 20.7 H RBC 3.95 L Hgb 12.6 L Hct 35.9 L MCV 90.9 MCH 31.9 MCHC 35.1 RDW 12.7 Plt Count 401 H MPV 9.3 Immature Gran % (Auto) 0.6 H Neut % (Auto) 78.9 H Lymph % (Auto) 11.0 L [place] % (Auto) 9.2 H Eos % (Auto) 0.0 Baso % (Auto) 0.3 Lymph # (Auto) 2.27 [place] # (Auto) 1.9 H Eos # (Auto) 0.0 Baso # (Auto) 0.1 Abs Immat Gran (auto) 0.13 H Absolute Neuts (auto) 16.4 H Absolute Nucleated RBC 0.000 Band Neutrophils % Not Reportable Nucleated RBC % 0.0 Platelet Estimate Slightly increased Hypochromasia 1+ Stomatocytes 1+ Schistocytes None seen ESR 57 H Sodium 130 L Potassium 4.3 Chloride 95 L Carbon Dioxide 27 Anion Gap 8 BUN 18 Creatinine 1.04 Estim Creat Clear Calc 86 Estimated GFR > 60 Glucose 110 POC Capillary Glucose 119 H Lactic Acid 1.1 Calcium 8.5 Phosphorus Total Bilirubin 1.4 H AST 208 H ALT 171 H Alkaline Phosphatase 148 H C-Reactive Protein 16.8 H Total Protein 7.3 Albumin 3.6 Procalcitonin 1.0 Urine Color Urine Appearance Urine pH Ur Specific [place] Urine Protein Urine Glucose (UA) Urine Ketones Ur Blood (Man) Urine Nitrate Urine Bilirubin Urine Urobilinogen Add Ur Microanalysis Leukocyte Esterase Rfl Urine RBC Urine WBC Ur Squamous Epith Cells Amorphous Sediment Urine Bacteria Urine Casts Granular Casts Influenza A (RT-PCR) Negative Influenza B (RT-PCR) Negative RSV (RT-PCR) Negative SARS-CoV-2 RNA (RT-PCR) Negative 09/12/25 09/12/25 09/13/25 20:43 23:37 01:37 WBC RBC Hgb Hct MCV MCH MCHC RDW Plt Count MPV Immature Gran % (Auto) Neut % (Auto) Lymph % (Auto) [place] % (Auto) Eos % (Auto) Baso % (Auto) Lymph # (Auto) [place] # (Auto) Eos # (Auto) Baso # (Auto) Abs Immat Gran (auto) Absolute Neuts (auto) Absolute Nucleated RBC Band Neutrophils % Nucleated RBC % Platelet Estimate Hypochromasia Stomatocytes Schistocytes ESR Sodium 130 L Potassium 4.2 Chloride 98 Carbon Dioxide 24 Anion Gap 8 BUN 19 Creatinine 1.10 Estim Creat Clear Calc 81 Estimated GFR > 60 Glucose 119 H POC Capillary Glucose 120 H Lactic Acid Calcium 7.8 L Phosphorus 3.5 Total Bilirubin AST ALT Alkaline Phosphatase C-Reactive Protein Total Protein Albumin Procalcitonin Urine Color Dark yellow Urine Appearance Turbid H Urine pH 5.5 Ur Specific [place] 1.025 Urine Protein 1+ H Urine Glucose (UA) Negative Urine Ketones Trace H Ur Blood (Man) Trace Urine Nitrate Negative Urine Bilirubin 1+ H Urine Urobilinogen 2.0 H Add Ur Microanalysis Reviewed Leukocyte Esterase Rfl 3+ H Urine RBC 0-2 Urine WBC >100 H Ur Squamous Epith Cells Few Amorphous Sediment Few H Urine Bacteria Trace Urine Casts 6-10 Granular Casts 1-2 H Influenza A (RT-PCR) Influenza B (RT-PCR) RSV (RT-PCR) SARS-CoV-2 RNA (RT-PCR) Quality VTE Prophylaxis VTE prophylaxis: mechanical ordered Hospitalist MIPS Advance Care Plan I have confirmed that the patient's Advanced Care Plan is present, code status is documented, or surrogate decision maker is listed in patient medical record.: Yes Medication Reconciliation I have utilized all available resources to obtain, update and review the patients current medications (includes all prescriptions, OTC, herbals, cannabis, and nutritional supplements).: Yes
[2025-09-13] MEDS: AMINO ACIDS 4.25%/D5W/LYTES/CA 1,000 ML 80 ML IV CONT (08:43)
[2025-09-13] MEDS: FAT EMULSIONS IV 20% 250 ML 20.8 ML IVPB (08:44)
[2025-09-13] MEDS: ENOXAPARIN 40 MG/0.4 ML SYRINGE SUB-Q (08:48)
[2025-09-13] MEDS: FAMOTIDINE 20 MG TABLET PO ×2 (08:48→21:00)
--- NOTE | 2025-09-13 11:07 | PM.PNGS ---
Progress Note: A&P Assessment and Plan (1) Internal hernia: Code(s): K45.8 - Other specified abdominal hernia without obstruction or gangrene Status: Acute Assessment and Plan: status post repair, having largely normal bowel function at this point, abdominal exam is completely benign, will resume regular diet (2) Fever: Code(s): R50.9 - Fever, unspecified Status: Acute Assessment and Plan: likely secondary to pneumonia and UTI, antibiotics Subjective Subjective Date/Time Seen: 09/13/25 11:07 Interval history: feels better this morning, denies any abdominal pain, continues to have bowel function Review of Systems Review of Systems: All systems reviewed & are unremarkable except as noted in HPI and below Exam Const: General: cooperative, comfortable and no acute distress Resp: Auscultation: diminished lung sounds Cardio: Rate: tachycardic Rhythm: regular rhythm GI: Inspection: normal to inspection and incision GI Palp: No abdominal tenderness, Yes Soft to palpation, No Tenderness to palpation present (GI), No Guarding due to palpation present (GI) and No Rigid due to palpation Objective Data Vital Signs Vital Signs: Vital Signs - 24 hr 09/12/25 14:00 09/12/25 16:49 09/12/25 17:13 Temperature 37.0 C 39.5 C H 39.5 C H Pulse Rate 88 Respiratory Rate 18 Blood Pressure 117/83 Pulse Oximetry 100 Oxygen Delivery 09/12/25 18:29 09/12/25 23:42 09/13/25 04:00 Temperature 38.2 C H 37.6 C 37.6 C Pulse Rate 108 H 112 H Respiratory Rate 18 17 Blood Pressure 151/89 H 129/78 Pulse Oximetry 100 99 Oxygen Delivery 09/13/25 08:00 09/13/25 08:00 Temperature 35.1 C L Pulse Rate 104 H Respiratory Rate 17 Blood Pressure 119/68 Pulse Oximetry 98 Oxygen Delivery Room Air Intake/Output Intake/Output: Intake & Output 09/10/25 09/11/25 09/12/25 09/13/25 23:59 23:59 23:59 23:59 Intake Total 1090 2250 3288.1 1025.9 Output Total 3450 665 Balance -2360 1585 3288.1 1025.9 Meds/Results Medications: Active Medications Generic Name Dose Route Start Last Admin Trade Name Freq PRN Reason Stop Dose Admin Acetaminophen 1,000 mg 09/12/25 16:59 09/13/25 06:32 Acetaminophen 500 Mg Tablet PO 1,000 mg Q6H PRN Administration Mild Pain (1-3) or Fever Alprazolam 0.5 mg 09/11/25 08:44 09/13/25 05:13 Alprazolam (*Crx) 0.5 Mg Tablet PO 0.5 mg TID PRN Administration Anxiety Buspirone HCl 10 mg 09/11/25 09:00 09/13/25 08:48 Buspirone Hcl 10 Mg Tablet PO 10 mg TID MANDA Administration Diazepam 2.5 - 5 mg 09/05/25 23:05 09/13/25 00:06 Diazepam Inj (*Crx) 10 Mg/2 Ml Syringe IV PUSH 5 mg Q4H PRN Administration Anxiety Enoxaparin Sodium 40 mg 09/05/25 09:00 09/13/25 08:48 Enoxaparin 40 Mg/0.4 Ml Syringe SUB-Q 40 mg DAILY MANDA Administration Famotidine 20 mg 09/12/25 21:00 09/13/25 08:48 Famotidine 20 Mg Tablet PO 20 mg Q12HR MANDA Administration Dextrose 1,000 mls @ 50 mls/hr 09/08/25 13:48 Dextrose 10% IV CONT .Q20H PRN if PN is interrupted Fat Emulsion Intravenous 250 mls @ 20.833 mls/hr 09/08/25 15:00 09/13/25 08:44 Lipids 20% IVPB 20.8 mls/hr Q24H MANDA Administration Amino Acids/Electrolytes/Dextrose 1,000 mls @ 80 mls/hr 09/10/25 18:00 09/13/25 08:43 Clinimix E 4.25%/5% Solution IV CONT 80 mls/hr .[id number] MANDA Administration Protocol Cefepime HCl 2 gm/ Sodium 50 mls @ 100 mls/hr 09/12/25 18:00 09/13/25 02:48 Chloride IVPB 100 mls/hr Q8H MANDA Administration Metronidazole 500 mg in 100 mls @ 100 mls/hr 09/12/25 20:00 09/13/25 05:13 Flagyl 500 Mg/Iso Soln 100 Ml IVPB 100 mls/hr Q8HR MANDA Administration Vancomycin HCl 1,500 mg in 500 mls @ 250 mls/hr 09/13/25 06:00 09/13/25 06:32 Vancomycin 1,500 Mg/Ns 500 Ml IVPB 250 mls/hr Q12H MANDA Administration Ketorolac Tromethamine 15 mg 09/11/25 09:00 09/13/25 08:48 Ketorolac 15 Mg/Ml Vial (*Bkc) IV PUSH 15 mg Q6H MANDA Administration Melatonin 5 mg 09/09/25 21:00 09/13/25 05:30 Melatonin 5 Mg Tablet PO Not Given HS COUNT INCLUDES [facility] Miscellaneous Information 1 each 09/12/25 00:01 Tpn Needs To Be Renewed Or It Will Automatically Discontinue. XX 10/12/25 00:00 CLARIFY MANDA Morphine Sulfate 2 mg 09/10/25 13:37 09/13/25 01:41 Morphine Sulfate (*Crx) 4 Mg/Ml Inj IV PUSH 2 mg Q4H PRN Administration Pain Rated 7-10 Ondansetron HCl 4 mg 09/04/25 09:10 09/11/25 05:47 Ondansetron Inj 4 Mg/2 Ml Vial IV PUSH 4 mg Q4H PRN Administration Nausea Phenol 1 spray 09/04/25 16:44 Phenol/Sod Pheno [place] (*Bkc) MUCOUS MEM PRN PRN Sore Throat Radiology Results: ITS Impressions Abdomen/Pelvis CT 09/04/25 07:02 IMPRESSION: 1. Dilated small bowel, which may be adynamic ileus or less likely distal small bowel obstruction. Small Bowel X-Ray 09/08/25 14:26 IMPRESSION: 1. Persistent multiple dilated gas-filled loops of small bowel no significant progression of contrast beyond the proximal ileum or 3 hours of imaging consistent with small bowel obstruction versus severe ileus. Abdomen X-Ray 09/12/25 17:09 Impression: 1. Colonic ileus, obstruction considered unlikely but not excluded. Follow-up is suggested to assess resolution. If symptoms persist CT is recommended Chest X-Ray 09/12/25 17:09 Impression: No acute cardiopulmonary abnormality. Labs Labs: Laboratory Results - last 24 hr 09/12/25 09/12/25 09/12/25 12:13 17:05 19:02 WBC 20.7 H RBC 3.95 L Hgb 12.6 L Hct 35.9 L MCV 90.9 MCH 31.9 MCHC 35.1 RDW 12.7 Plt Count 401 H MPV 9.3 Immature Gran % (Auto) 0.6 H Neut % (Auto) 78.9 H Lymph % (Auto) 11.0 L [place] % (Auto) 9.2 H Eos % (Auto) 0.0 Baso % (Auto) 0.3 Lymph # (Auto) 2.27 [place] # (Auto) 1.9 H Eos # (Auto) 0.0 Baso # (Auto) 0.1 Abs Immat Gran (auto) 0.13 H Absolute Neuts (auto) 16.4 H Absolute Nucleated RBC 0.000 Band Neutrophils % Not Reportable Nucleated RBC % 0.0 Platelet Estimate Slightly increased Hypochromasia 1+ Stomatocytes 1+ Schistocytes None seen ESR 57 H D-Dimer Sodium 130 L Potassium 4.3 Chloride 95 L Carbon Dioxide 27 Anion Gap 8 BUN 18 Creatinine 1.04 Estim Creat Clear Calc 86 Estimated GFR > 60 Glucose 110 POC Capillary Glucose 119 H Lactic Acid 1.1 Calcium 8.5 Phosphorus Total Bilirubin 1.4 H AST 208 H ALT 171 H Alkaline Phosphatase 148 H C-Reactive Protein 16.8 H Total Protein 7.3 Albumin 3.6 Procalcitonin 1.0 Urine Color Urine Appearance Urine pH Ur Specific [place] Urine Protein Urine Glucose (UA) Urine Ketones Ur Blood (Man) Urine Nitrate Urine Bilirubin Urine Urobilinogen Add Ur Microanalysis Leukocyte Esterase Rfl Urine RBC Urine WBC Ur Squamous Epith Cells Amorphous Sediment Urine Bacteria Urine Casts Granular Casts Influenza A (RT-PCR) Negative Influenza B (RT-PCR) Negative RSV (RT-PCR) Negative SARS-CoV-2 RNA (RT-PCR) Negative 09/12/25 09/12/25 09/13/25 20:43 23:37 01:37 WBC RBC Hgb Hct MCV MCH MCHC RDW Plt Count MPV Immature Gran % (Auto) Neut % (Auto) Lymph % (Auto) [place] % (Auto) Eos % (Auto) Baso % (Auto) Lymph # (Auto) [place] # (Auto) Eos # (Auto) Baso # (Auto) Abs Immat Gran (auto) Absolute Neuts (auto) Absolute Nucleated RBC Band Neutrophils % Nucleated RBC % Platelet Estimate Hypochromasia Stomatocytes Schistocytes ESR D-Dimer Sodium 130 L Potassium 4.2 Chloride 98 Carbon Dioxide 24 Anion Gap 8 BUN 19 Creatinine 1.10 Estim Creat Clear Calc 81 Estimated GFR > 60 Glucose 119 H POC Capillary Glucose 120 H Lactic Acid Calcium 7.8 L Phosphorus 3.5 Total Bilirubin AST ALT Alkaline Phosphatase C-Reactive Protein Total Protein Albumin Procalcitonin Urine Color Dark yellow Urine Appearance Turbid H Urine pH 5.5 Ur Specific [place] 1.025 Urine Protein 1+ H Urine Glucose (UA) Negative Urine Ketones Trace H Ur Blood (Man) Trace Urine Nitrate Negative Urine Bilirubin 1+ H Urine Urobilinogen 2.0 H Add Ur Microanalysis Reviewed Leukocyte Esterase Rfl 3+ H Urine RBC 0-2 Urine WBC >100 H Ur Squamous Epith Cells Few Amorphous Sediment Few H Urine Bacteria Trace Urine Casts 6-10 Granular Casts 1-2 H Influenza A (RT-PCR) Influenza B (RT-PCR) RSV (RT-PCR) SARS-CoV-2 RNA (RT-PCR) 09/13/25 07:36 WBC RBC Hgb Hct MCV MCH MCHC RDW Plt Count MPV Immature Gran % (Auto) Neut % (Auto) Lymph % (Auto) [place] % (Auto) Eos % (Auto) Baso % (Auto) Lymph # (Auto) [place] # (Auto) Eos # (Auto) Baso # (Auto) Abs Immat Gran (auto) Absolute Neuts (auto) Absolute Nucleated RBC Band Neutrophils % Nucleated RBC % Platelet Estimate Hypochromasia Stomatocytes Schistocytes ESR D-Dimer 4.45 H Sodium Potassium Chloride Carbon Dioxide Anion Gap BUN Creatinine Estim Creat Clear Calc Estimated GFR Glucose POC Capillary Glucose Lactic Acid Calcium Phosphorus Total Bilirubin AST ALT Alkaline Phosphatase C-Reactive Protein Total Protein Albumin Procalcitonin Urine Color Urine Appearance Urine pH Ur Specific [place] Urine Protein Urine Glucose (UA) Urine Ketones Ur Blood (Man) Urine Nitrate Urine Bilirubin Urine Urobilinogen Add Ur Microanalysis Leukocyte Esterase Rfl Urine RBC Urine WBC Ur Squamous Epith Cells Amorphous Sediment Urine Bacteria Urine Casts Granular Casts Influenza A (RT-PCR) Influenza B (RT-PCR) RSV (RT-PCR) SARS-CoV-2 RNA (RT-PCR)
[2025-09-13 12:00] VITALS: BP 139/92; PULSE 96; RESP 16; TEMP 36.6; O2SAT 99
[2025-09-13 16:00] VITALS: BP 152/80; PULSE 107; RESP 20; TEMP 36.8; O2SAT 99
[2025-09-13 16:02] LABS: Hematocrit 37.6 % (42.0-52.0); Hemoglobin 12.5 g/dL (14.0-18.0); Mean Corpuscular HGB Conc 33.2 g/dl (32-36); Mean Corpuscular Hemoglobin 31.8 pg (26-34); Mean Corpuscular Volume 95.7 fl (80-100); Platelet Count Result 385 k/mm3 (150-375); Red Blood Count 3.93 M/mm3 (4.6-6.20); White Blood Count 28.3 K/mm3 (4.5-10.0)
[2025-09-13 16:12] LABS: Alanine Aminotransferase 108 U/L (6-50); Albumin Level 3.4 g/dL (3.5-5.1); Alkaline Phosphatase 146 U/L (38-126); Aspartate Amino Transferase 60 U/L (17-59); Bilirubin,Total 1.4 mg/dL (0.2-1.3); Total Protein 6.9 g/dL (6.3-8.2)
[2025-09-13 16:17] LABS: Anion Gap 10 mmol/L (4-12); Blood Urea Nitrogen 17 mg/dL (9-20); Calcium 8.2 mg/dL (8.4-10.2); Carbon Dioxide 22 mmol/L (22-30); Chloride 101 mmol/L (98-107); Estimated CRCL calculation 83 ml/min; Estimated Glomerular Filt Rate > 60; Glucose 89 mg/dL (65-110); Potassium 4.2 mmol/L (3.4-5.0); Sodium 133 mmol/L (137-145); Triglycerides 350 mg/dL (<150)
[2025-09-13 16:35] LABS: Band Neutrophils Percent 7 % (0-6); Lymphocytes Absolute Manual 1.98 K/mm3 (1.1-4.5); Lymphocytes Percent Manual 7.0 % (18-44); Monocytes Absolute Manual 1.41 K/mm3 (0.1-0.90); Monocytes Percent Manual 5 % (3-9); Neutrophils Absolute Manual 24.90 K/mm3 (1.3-6.7); Neutrophils Percent Manual 81 % (46-73); Total Cells Counted 100
[2025-09-13 16:36] LABS: Anisocytosis 1+; Schistocytes None Seen
[2025-09-13 19:19] LABS: MRSA (PCR) NOT DETECTED (NOT DETECTE)
[2025-09-13 20:00] VITALS: BP 130/82; PULSE 104; RESP 16; TEMP 37.4; O2SAT 100
[2025-09-13] MEDS: MELATONIN 5 MG TABLET PO (21:00)
[2025-09-14] VITALS: BP 135/81; PULSE 100; RESP 18; TEMP 37.7; O2SAT 100
[2025-09-14] MEDS: CEFEPIME 2 GM in SODIUM CHLORIDE 0.9% IV 50 ML 100 ML IVPB ×3 (01:47→17:04)
[2025-09-14] MEDS: KETOROLAC 15 MG/ML VIAL (*BKC) IV PUSH ×4 (01:47→21:11)
[2025-09-14] MEDS: ACETAMINOPHEN 500 MG TABLET 1000 MG PO ×2 (01:48→21:12)
[2025-09-14] MEDS: ALPRAZolam (*CRX) 0.5 MG TABLET PO (01:51)
[2025-09-14 04:00] VITALS: BP 127/89; PULSE 95; RESP 20; TEMP 36.9; O2SAT 100
[2025-09-14] MEDS: metroNIDAZOLE 500 MG/ISO 100ML 500 MG/100 ML BAG 100 MG IVPB ×3 (05:04→21:12)
[2025-09-14] MEDS: ENOXAPARIN 80 MG/0.8 ML SYRINGE 76 MG SUB-Q (05:05)
[2025-09-14 06:25] LABS: Anion Gap 6 mmol/L (4-12); Blood Urea Nitrogen 16 mg/dL (9-20); Calcium 7.6 mg/dL (8.4-10.2); Carbon Dioxide 23 mmol/L (22-30); Chloride 102 mmol/L (98-107); Estimated CRCL calculation 92 ml/min; Estimated Glomerular Filt Rate > 60; Glucose 88 mg/dL (65-110); Potassium 4.1 mmol/L (3.4-5.0); Sodium 131 mmol/L (137-145)
[2025-09-14] MEDS: VANCOMYCIN 2,000 MG/NS 500 ML 2,000 MG/500 ML BAG 250 MG IVPB (07:33)
--- NOTE | 2025-09-14 07:49 | P.PNIM_ITS ---
Progress Note: A&P Assessment and Plan (1) Sepsis: Code(s): A41.9 - Sepsis, unspecified organism Status: Acute Assessment and Plan: Treatment of fever as noted (2) Fever: Code(s): R50.9 - Fever, unspecified Status: Acute Assessment and Plan: Treating for sepsis--Tachycardic, blood pressure below prior, possible UTI vs pneumonia vs other Fever 103.1 08/12, now afebrile after starting antibiotics Reporting shortness of breath. Was tachycardic, no chest pain Dysuria now resolved Antibiotics: Cefepime 09/12-present Flagyl 09/12-present Vancomycin 09/12-09/14 Imagin/7 KUB Colonic ileus, obstruction considered unlikely but not excluded 09/12 Chest x-ray clear 09/[address] concerning for pneumonia, infarct, or abdominal infection but final read by radiology pending 09/13 CTA read pending LABS COVID/FLU/RSV negative. UA+, dysuria now resolved. WBC 10<20.7<28 ESR 57, CRP 16.8, procalcitonin 1 d-dimer elevated in the setting of surgery PLAN Treating UTI, Pneumonia, possible abdominal infection, and PE pending CTA read. Has been receiving DVT prophylaxis during admission --Follow WBC --Follow Urine culture, Blood cultures, though were drawn after antibiotics --Follow final CT read, clinical exam overall improved -- Continue Cefepime, Flagyl -- MRSA PCR negative. DC Vancomycin and monitor --Continue theapeutic lovenox until CTA resulted --VS q4 (3) Small bowel obstruction: Code(s): K56.609 - Unspecified intestinal obstruction, unspecified as to partial versus complete obstruction Status: Acute Assessment and Plan: Robotic assisted bilateral inguinal hernia repair with mesh by Dr. Garrison on 08/28/25. 09/09/2025 patient return to OR NG tube removed 09/12 and eating some of his meal, poor appetite but doesn't like the food. Denies nausea. -Try to avoid narcotics as his could make small-bowel obstruction take longer to resolve --Reports having BM's and passing gas today --Surgery primary service (4) Anxiety about treatment: Code(s): R45.89 - Other symptoms and signs involving emotional state Status: Acute Assessment and Plan: Medications adjusted BusPar a known changed from p.r.n. to t.i.d., as BusPar works best a scheduled med Xanax changed from t.i.d. to p.r.n. Plan Personally reviewed CT image Subjective Date/time seen: 09/14/25 17:15 Interval history: Low grade temp overnight, 99.8, afebrile this morning. VSS. HR improved. Hold Lovenox for DVT prophylax in AM for possible perc drain placement Patient reported anxiety about an ultrasound guided drain procedure and asked for sedation so changed diet to NPO in AM in case that is possible He reports feeling oversedated/staring with buspar dose so decreased to 7.5 TID. Also discussed nonpharmacologic anxiety methods Reason for hospitalization--Surgery Primary service. Hospitalist Consulted 35 year old male who underwent robotic assisted bilateral inguinal hernia repair with mesh by Dr. Garrison on 08/28/25 presented back to the hospital with small-bowel obstruction on 09/04/2025, taken back to OR on 09/09/2025 for small- bowel obstruction currently on PPN waiting for return bowel function. Surgery following: NGT removed, diet advanced and has been tolerating a diet, having BM's. New fever to 103.1 09/12 CT abd/pelvis showed airspace opacities LLL pneumonia vs infarct, 11.1x2x3.4cm post op rim-enhancing fluid collection in the right lower quadrant anteriorly--seroma vs abscess. CTA was done that showed No PE. Started therapeutic lovenox pending CTA results, no PE so resumed Lovenox for DVT prophylaxis. Still has abdominal distention and mild tenderness. US guided drainage ordered for AM. On Cefepime and Flagyl for pneumonia, abdominal fluid collection Review of Systems Review of Systems: 12 systems were reviewed and are negativ e except for as per HPI. All systems reviewed & are unremarkable except as noted in HPI and below Psychiatric: Psychiatric: Reports anxiety Exam Narrative: General: well appearing, appears stated age. HEENT: normocephalic, atraumatic. Mucous membranes moist. EOMI, PERRLA, bilateral sclera anicteric, no conjunctival injection. Neck supple without JVD, lymphadenopathy, or bruit. Respiratory: clear bilaterally. No rales/rhonic/wheezes. Cardiovascular: Regular rate and rhythm, normal S1-S2. No murmurs, rubs, or clicks. PMI is nondisplaced, capillary refill less than 3 second. Abdomen: distended, soft, generalized tenderness, surgical incision noninfected appearing, well approximated Extremities: No cyanosis, clubbing, or edema present. Pulses are palpable 2/2. Active ROM to all four extremities. Neuro: Alert and orientated x 4. PERRLA. Cranial nerves 2-12 intact without focal deficit. Skin: Warm, dry, and intact, without rash, erythema, or lesion. Psych: pleasant, cooperative, normal speech, normal affect, no hallucinations, no dysarthria Objective Data Vital Signs Vital Signs: Vital Signs - 24 hr 09/13/25 08:00 09/13/25 08:00 09/13/25 12:00 Temperature 95.2 F L 97.8 F Pulse Rate 104 H 96 Respiratory Rate 17 16 Blood Pressure 119/68 139/92 H Pulse Oximetry 98 99 Oxygen Delivery Room Air 09/13/25 16:00 09/13/25 20:00 09/14/25 00:00 Temperature 98.3 F 99.3 F 99.8 F H Pulse Rate 107 H 104 H 100 Respiratory Rate 20 16 18 Blood Pressure 152/80 H 130/82 135/81 Pulse Oximetry 99 100 100 Oxygen Delivery 09/14/25 04:00 Temperature 98.5 F Pulse Rate 95 Respiratory Rate 20 Blood Pressure 127/89 Pulse Oximetry 100 Oxygen Delivery Intake/Output Intake/Output: Intake & Output 09/11/25 09/12/25 09/13/25 09/14/25 23:59 23:59 23:59 23:59 Intake Total 2250 3288.1 2559.9 Output Total 665 Balance 1585 3288.1 2559.9 Meds/Results Medications: Active Medications Generic Name Dose Route Start Last Admin Trade Name Freq PRN Reason Stop Dose Admin Acetaminophen 1,000 mg 09/12/25 16:59 09/14/25 01:48 Acetaminophen 500 Mg Tablet PO 1,000 mg Q6H PRN Administration Mild Pain (1-3) or Fever Alprazolam 0.5 mg 09/11/25 08:44 09/14/25 01:51 Alprazolam (*Crx) 0.5 Mg Tablet PO 0.5 mg TID PRN Administration Anxiety Buspirone HCl 10 mg 09/11/25 09:00 09/13/25 17:21 Buspirone Hcl 10 Mg Tablet PO 10 mg TID MANDA Administration Diazepam 2.5 - 5 mg 09/05/25 23:05 09/13/25 00:06 Diazepam Inj (*Crx) 10 Mg/2 Ml Syringe IV PUSH 5 mg Q4H PRN Administration Anxiety Enoxaparin Sodium 76 mg 09/13/25 17:00 09/14/25 05:05 Enoxaparin 80 Mg/0.8 Ml Syringe SUB-Q 76 mg Q12H MANDA Administration Famotidine 20 mg 09/12/25 21:00 09/13/25 21:00 Famotidine 20 Mg Tablet PO 20 mg Q12HR MANDA Administration Dextrose 1,000 mls @ 50 mls/hr 09/08/25 13:48 Dextrose 10% IV CONT .Q20H PRN if PN is interrupted Cefepime HCl 2 gm/ Sodium 50 mls @ 100 mls/hr 09/12/25 18:00 09/14/25 01:47 Chloride IVPB 100 mls/hr Q8H MANDA Administration Metronidazole 500 mg in 100 mls @ 100 mls/hr 09/12/25 20:00 09/14/25 05:04 Flagyl 500 Mg/Iso Soln 100 Ml IVPB 100 mls/hr Q8HR MANDA Administration Vancomycin HCl 2,000 mg in 500 mls @ 250 mls/hr 09/14/25 08:00 09/14/25 07:33 Vancomycin 2,000 Mg/Ns 500 Ml IVPB 250 mls/hr Q12H MANDA Administration Ketorolac Tromethamine 15 mg 09/11/25 09:00 09/14/25 01:47 Ketorolac 15 Mg/Ml Vial (*Bkc) IV PUSH 15 mg Q6H MANDA Administration Melatonin 5 mg 09/09/25 21:00 09/13/25 21:00 Melatonin 5 Mg Tablet PO 5 mg HS MANDA Administration Morphine Sulfate 2 mg 09/10/25 13:37 09/13/25 01:41 Morphine Sulfate (*Crx) 4 Mg/Ml Inj IV PUSH 2 mg Q4H PRN Administration Pain Rated 7-10 Ondansetron HCl 4 mg 09/04/25 09:10 09/11/25 05:47 Ondansetron Inj 4 Mg/2 Ml Vial IV PUSH 4 mg Q4H PRN Administration Nausea Phenol 1 spray 09/04/25 16:44 Phenol/Sod Pheno [place] (*Bkc) MUCOUS MEM PRN PRN Sore Throat Radiology Results: ITS Impressions Abdomen/Pelvis CT 09/04/25 07:02 IMPRESSION: 1. Dilated small bowel, which may be adynamic ileus or less likely distal small bowel obstruction. Small Bowel X-Ray 09/08/25 14:26 IMPRESSION: 1. Persistent multiple dilated gas-filled loops of small bowel no significant progression of contrast beyond the proximal ileum or 3 hours of imaging consistent with small bowel obstruction versus severe ileus. Abdomen X-Ray 09/12/25 17:09 Impression: 1. Colonic ileus, obstruction considered unlikely but not excluded. Follow-up is suggested to assess resolution. If symptoms persist CT is recommended Chest X-Ray 09/12/25 17:09 Impression: No acute cardiopulmonary abnormality. Venous Doppler Study 09/13/25 17:37 Impression: Negative for DVT. Labs Labs: Laboratory Results - last 24 hr 09/13/25 09/13/25 09/13/25 07:36 11:08 15:13 WBC RBC Hgb Hct MCV MCH MCHC RDW Plt Count MPV Immature Gran % (Auto) Neut % (Auto) Lymph % (Auto) [place] % (Auto) Eos % (Auto) Baso % (Auto) Lymph # (Auto) [place] # (Auto) Eos # (Auto) Baso # (Auto) Abs Immat Gran (auto) Absolute Neuts (auto) Absolute Nucleated RBC Total Counted Neutrophils % (Manual) Band Neutrophils % Lymphocytes % (Manual) Monocytes % (Manual) Nucleated RBC % Abs Neuts (Manual) Abs Lymphs (Manual) Abs Monocytes (Manual) Platelet Estimate Anisocytosis Schistocytes D-Dimer 4.45 H Sodium Potassium Chloride Carbon Dioxide Anion Gap BUN Creatinine Estim Creat Clear Calc Estimated GFR Glucose POC Capillary Glucose 111 H Calcium Phosphorus Total Bilirubin 1.4 H Direct Bilirubin 0.0 AST 60 H ALT 108 H Alkaline Phosphatase 146 H Total Protein 6.9 Albumin 3.4 L Triglycerides Nasal MRSA (PCR) Vancomycin Trough 09/13/25 09/13/25 09/13/25 15:21 15:21 17:56 WBC 28.3 H RBC 3.93 L Hgb 12.5 L Hct 37.6 L MCV 95.7 D MCH 31.8 MCHC 33.2 RDW 13.4 Plt Count 385 H MPV 9.0 Immature Gran % (Auto) Not Reportable Neut % (Auto) Not Reportable Lymph % (Auto) Not Reportable [place] % (Auto) Not Reportable Eos % (Auto) Not Reportable Baso % (Auto) Not Reportable Lymph # (Auto) Not Reportable [place] # (Auto) Not Reportable Eos # (Auto) Not Reportable Baso # (Auto) Not Reportable Abs Immat Gran (auto) Not Reportable Absolute Neuts (auto) Not Reportable Absolute Nucleated RBC Not Reportable Total Counted 100 Neutrophils % (Manual) 81 H Band Neutrophils % 7 H Lymphocytes % (Manual) 7.0 L Monocytes % (Manual) 5 Nucleated RBC % Not Reportable Abs Neuts (Manual) 24.90 H Abs Lymphs (Manual) 1.98 Abs Monocytes (Manual) 1.41 H Platelet Estimate Slightly increased Anisocytosis 1+ Schistocytes None seen D-Dimer Sodium 133 L Potassium 4.2 Chloride 101 Carbon Dioxide 22 Anion Gap 10 BUN 17 Creatinine 1.07 Estim Creat Clear Calc 83 Estimated GFR > 60 Glucose 89 POC Capillary Glucose Calcium 8.2 L Phosphorus Total Bilirubin Direct Bilirubin AST ALT Alkaline Phosphatase Total Protein Albumin Triglycerides Cancelled 350 H Nasal MRSA (PCR) Not detected Vancomycin Trough 09/13/25 09/14/25 09/14/25 19:45 05:34 06:02 WBC RBC Hgb Hct MCV MCH MCHC RDW Plt Count MPV Immature Gran % (Auto) Neut % (Auto) Lymph % (Auto) [place] % (Auto) Eos % (Auto) Baso % (Auto) Lymph # (Auto) [place] # (Auto) Eos # (Auto) Baso # (Auto) Abs Immat Gran (auto) Absolute Neuts (auto) Absolute Nucleated RBC Total Counted Neutrophils % (Manual) Band Neutrophils % Lymphocytes % (Manual) Monocytes % (Manual) Nucleated RBC % Abs Neuts (Manual) Abs Lymphs (Manual) Abs Monocytes (Manual) Platelet Estimate Anisocytosis Schistocytes D-Dimer Sodium 131 L Potassium 4.1 Chloride 102 Carbon Dioxide 23 Anion Gap 6 BUN 16 Creatinine 0.97 Estim Creat Clear Calc 92 Estimated GFR > 60 Glucose 88 POC Capillary Glucose 130 H 92 Calcium 7.6 L Phosphorus 3.0 Total Bilirubin Direct Bilirubin AST ALT Alkaline Phosphatase Total Protein Albumin Triglycerides Nasal MRSA (PCR) Vancomycin Trough 11.5 Quality VTE Prophylaxis VTE prophylaxis: mechanical ordered Hospitalist MIPS Advance Care Plan I have confirmed that the patient's Advanced Care Plan is present, code status is documented, or surrogate decision maker is listed in patient medical record.: Yes Medication Reconciliation I have utilized all available resources to obtain, update and review the patients current medications (includes all prescriptions, OTC, herbals, cannabis, and nutritional supplements).: Yes
--- NOTE | 2025-09-14 09:50 | PM.PNGS ---
Progress Note: A&P Assessment and Plan (1) Internal hernia: Code(s): K45.8 - Other specified abdominal hernia without obstruction or gangrene Status: Acute Assessment and Plan: abdominal exam completely benign, tolerating regular diet, having loose bowel function (2) Leukocytosis: Code(s): D72.829 - Elevated white blood cell count, unspecified Status: Acute Assessment and Plan: continues to be elevated, will check stool for C diff, continue antibiotics for now, will discuss with Radiology drainage of intra-abdominal fluid collection Subjective Subjective Date/Time Seen: 09/14/25 09:50 Interval history: feels pretty good overall, tolerating diet, having multiple loose bowel movements Review of Systems Review of Systems: All systems reviewed & are unremarkable except as noted in HPI and below Exam Const: General: cooperative, comfortable and no acute distress Resp: Auscultation: clear to auscultation bilaterally Cardio: Rate: regular rate Rhythm: regular rhythm GI: Inspection: normal to inspection, distended and incision GI Palp: No abdominal tenderness and Yes Soft to palpation Objective Data Vital Signs Vital Signs: Vital Signs - 24 hr 09/13/25 12:00 09/13/25 16:00 09/13/25 20:00 Temperature 36.6 C 36.8 C 37.4 C Pulse Rate 96 107 H 104 H Respiratory Rate 16 20 16 Blood Pressure 139/92 H 152/80 H 130/82 Pulse Oximetry 99 99 100 09/14/25 00:00 09/14/25 04:00 Temperature 37.7 C H 36.9 C Pulse Rate 100 95 Respiratory Rate 18 20 Blood Pressure 135/81 127/89 Pulse Oximetry 100 100 Intake/Output Intake/Output: Intake & Output 09/11/25 09/12/25 09/13/25 09/14/25 23:59 23:59 23:59 23:59 Intake Total 2250 3288.1 2559.9 Output Total 665 Balance 1585 3288.1 2559.9 Meds/Results Medications: Active Medications Generic Name Dose Route Start Last Admin Trade Name Freq PRN Reason Stop Dose Admin Acetaminophen 1,000 mg 09/12/25 16:59 09/14/25 01:48 Acetaminophen 500 Mg Tablet PO 1,000 mg Q6H PRN Administration Mild Pain (1-3) or Fever Alprazolam 0.5 mg 09/11/25 08:44 09/14/25 01:51 Alprazolam (*Crx) 0.5 Mg Tablet PO 0.5 mg TID PRN Administration Anxiety Buspirone HCl 10 mg 09/11/25 09:00 09/13/25 17:21 Buspirone Hcl 10 Mg Tablet PO 10 mg TID MANDA Administration Diazepam 2.5 - 5 mg 09/05/25 23:05 09/13/25 00:06 Diazepam Inj (*Crx) 10 Mg/2 Ml Syringe IV PUSH 5 mg Q4H PRN Administration Anxiety Enoxaparin Sodium 76 mg 09/13/25 17:00 09/14/25 05:05 Enoxaparin 80 Mg/0.8 Ml Syringe SUB-Q 76 mg Q12H MANDA Administration Famotidine 20 mg 09/12/25 21:00 09/13/25 21:00 Famotidine 20 Mg Tablet PO 20 mg Q12HR MANDA Administration Dextrose 1,000 mls @ 50 mls/hr 09/08/25 13:48 Dextrose 10% IV CONT .Q20H PRN if PN is interrupted Cefepime HCl 2 gm/ Sodium 50 mls @ 100 mls/hr 09/12/25 18:00 09/14/25 01:47 Chloride IVPB 100 mls/hr Q8H MANDA Administration Metronidazole 500 mg in 100 mls @ 100 mls/hr 09/12/25 20:00 09/14/25 05:04 Flagyl 500 Mg/Iso Soln 100 Ml IVPB 100 mls/hr Q8HR MANDA Administration Ketorolac Tromethamine 15 mg 09/11/25 09:00 09/14/25 01:47 Ketorolac 15 Mg/Ml Vial (*Bkc) IV PUSH 15 mg Q6H MANDA Administration Melatonin 5 mg 09/09/25 21:00 09/13/25 21:00 Melatonin 5 Mg Tablet PO 5 mg HS MANDA Administration Morphine Sulfate 2 mg 09/10/25 13:37 09/13/25 01:41 Morphine Sulfate (*Crx) 4 Mg/Ml Inj IV PUSH 2 mg Q4H PRN Administration Pain Rated 7-10 Ondansetron HCl 4 mg 09/04/25 09:10 09/11/25 05:47 Ondansetron Inj 4 Mg/2 Ml Vial IV PUSH 4 mg Q4H PRN Administration Nausea Phenol 1 spray 09/04/25 16:44 Phenol/Sod Pheno [place] (*Bkc) MUCOUS MEM PRN PRN Sore Throat Radiology Results: ITS Impressions Abdomen/Pelvis CT 09/04/25 07:02 IMPRESSION: 1. Dilated small bowel, which may be adynamic ileus or less likely distal small bowel obstruction. Small Bowel X-Ray 09/08/25 14:26 IMPRESSION: 1. Persistent multiple dilated gas-filled loops of small bowel no significant progression of contrast beyond the proximal ileum or 3 hours of imaging consistent with small bowel obstruction versus severe ileus. Abdomen X-Ray 09/12/25 17:09 Impression: 1. Colonic ileus, obstruction considered unlikely but not excluded. Follow-up is suggested to assess resolution. If symptoms persist CT is recommended Chest X-Ray 09/12/25 17:09 Impression: No acute cardiopulmonary abnormality. Venous Doppler Study 09/13/25 17:37 Impression: Negative for DVT. Chest/Abdomen/Pelvis CT 09/14/25 08:38 IMPRESSION: 1. Airspace opacities in basilar left lower lobe, consistent with pneumonia versus infarct. 2. Dilated loops of small bowel, consistent with adynamic ileus. 3. 11.1 x 2.0 x 3.4 cm postoperative rim-enhancing fluid collection in the right lower quadrant anteriorly, which may be a seroma or abscess. Chest CTA 09/14/25 08:47 IMPRESSION: 1. No pulmonary embolus. 2. Persistent airspace and groundglass opacities in basilar left lower lobe, consistent with pneumonia. 3. Dilated loops of small bowel, likely adynamic ileus. Labs Labs: Laboratory Results - last 24 hr 09/13/25 09/13/25 09/13/25 11:08 15:13 15:21 WBC 28.3 H RBC 3.93 L Hgb 12.5 L Hct 37.6 L MCV 95.7 D MCH 31.8 MCHC 33.2 RDW 13.4 Plt Count 385 H MPV 9.0 Immature Gran % (Auto) Not Reportable Neut % (Auto) Not Reportable Lymph % (Auto) Not Reportable [place] % (Auto) Not Reportable Eos % (Auto) Not Reportable Baso % (Auto) Not Reportable Lymph # (Auto) Not Reportable [place] # (Auto) Not Reportable Eos # (Auto) Not Reportable Baso # (Auto) Not Reportable Abs Immat Gran (auto) Not Reportable Absolute Neuts (auto) Not Reportable Absolute Nucleated RBC Not Reportable Total Counted 100 Neutrophils % (Manual) 81 H Band Neutrophils % 7 H Lymphocytes % (Manual) 7.0 L Monocytes % (Manual) 5 Nucleated RBC % Not Reportable Abs Neuts (Manual) 24.90 H Abs Lymphs (Manual) 1.98 Abs Monocytes (Manual) 1.41 H Platelet Estimate Slightly increased Anisocytosis 1+ Schistocytes None seen Sodium 133 L Potassium 4.2 Chloride 101 Carbon Dioxide 22 Anion Gap 10 BUN 17 Creatinine 1.07 Estim Creat Clear Calc 83 Estimated GFR > 60 Glucose 89 POC Capillary Glucose 111 H Calcium 8.2 L Phosphorus Total Bilirubin 1.4 H Direct Bilirubin 0.0 AST 60 H ALT 108 H Alkaline Phosphatase 146 H Total Protein 6.9 Albumin 3.4 L Triglycerides Cancelled Nasal MRSA (PCR) Vancomycin Trough 09/13/25 09/13/25 09/13/25 15:21 17:56 19:45 WBC RBC Hgb Hct MCV MCH MCHC RDW Plt Count MPV Immature Gran % (Auto) Neut % (Auto) Lymph % (Auto) [place] % (Auto) Eos % (Auto) Baso % (Auto) Lymph # (Auto) [place] # (Auto) Eos # (Auto) Baso # (Auto) Abs Immat Gran (auto) Absolute Neuts (auto) Absolute Nucleated RBC Total Counted Neutrophils % (Manual) Band Neutrophils % Lymphocytes % (Manual) Monocytes % (Manual) Nucleated RBC % Abs Neuts (Manual) Abs Lymphs (Manual) Abs Monocytes (Manual) Platelet Estimate Anisocytosis Schistocytes Sodium Potassium Chloride Carbon Dioxide Anion Gap BUN Creatinine Estim Creat Clear Calc Estimated GFR Glucose POC Capillary Glucose 130 H Calcium Phosphorus Total Bilirubin Direct Bilirubin AST ALT Alkaline Phosphatase Total Protein Albumin Triglycerides 350 H Nasal MRSA (PCR) Not detected Vancomycin Trough 09/14/25 09/14/25 05:34 06:02 WBC RBC Hgb Hct MCV MCH MCHC RDW Plt Count MPV Immature Gran % (Auto) Neut % (Auto) Lymph % (Auto) [place] % (Auto) Eos % (Auto) Baso % (Auto) Lymph # (Auto) [place] # (Auto) Eos # (Auto) Baso # (Auto) Abs Immat Gran (auto) Absolute Neuts (auto) Absolute Nucleated RBC Total Counted Neutrophils % (Manual) Band Neutrophils % Lymphocytes % (Manual) Monocytes % (Manual) Nucleated RBC % Abs Neuts (Manual) Abs Lymphs (Manual) Abs Monocytes (Manual) Platelet Estimate Anisocytosis Schistocytes Sodium 131 L Potassium 4.1 Chloride 102 Carbon Dioxide 23 Anion Gap 6 BUN 16 Creatinine 0.97 Estim Creat Clear Calc 92 Estimated GFR > 60 Glucose 88 POC Capillary Glucose 92 Calcium 7.6 L Phosphorus 3.0 Total Bilirubin Direct Bilirubin AST ALT Alkaline Phosphatase Total Protein Albumin Triglycerides Nasal MRSA (PCR) Vancomycin Trough 11.5
[2025-09-14] MEDS: FAMOTIDINE 20 MG TABLET PO ×2 (10:46→21:12)
[2025-09-14 12:00] VITALS: BP 139/80; PULSE 87; RESP 16; TEMP 36.2; O2SAT 100
[2025-09-14 15:03] LABS: Toxigenic C. Diff NEGATIVE (NEGATIVE)
[2025-09-14 15:33] VITALS: BP 152/91; PULSE 90; RESP 16; TEMP 36.4; O2SAT 100
[2025-09-14 20:00] VITALS: BP 139/88; PULSE 103; RESP 18; TEMP 37.6; O2SAT 100
[2025-09-14] MEDS: MELATONIN 5 MG TABLET PO (21:12)
[2025-09-14 23:55] VITALS: BP 128/79; PULSE 82; RESP 17; TEMP 37.1; O2SAT 100
[2025-09-15] MEDS: CEFEPIME 2 GM in SODIUM CHLORIDE 0.9% IV 50 ML 100 ML IVPB ×2 (02:40→12:24)
[2025-09-15] MEDS: KETOROLAC 15 MG/ML VIAL (*BKC) IV PUSH ×2 (02:40→09:20)
[2025-09-15] MEDS: ALPRAZolam (*CRX) 0.5 MG TABLET PO (03:03)
[2025-09-15] MEDS: SODIUM CHLORIDE 0.9% IV 500 ML 20 ML (03:08)
[2025-09-15 04:00] VITALS: BP 143/81; PULSE 88; RESP 17; TEMP 36.8; O2SAT 100
[2025-09-15] MEDS: metroNIDAZOLE 500 MG/ISO 100ML 500 MG/100 ML BAG 100 MG IVPB (05:57)
[2025-09-15 06:43] LABS: Hematocrit 30.9 % (42.0-52.0); Hemoglobin 10.6 g/dL (14.0-18.0); Immature Granulocyte Percent A 1.8 % (0-0.5); Lymphocytes Absolute Auto 1.89 K/mm3 (0.9-3.2); Mean Corpuscular HGB Conc 34.3 g/dl (32-36); Mean Corpuscular Hemoglobin 31.4 pg (26-34); Mean Corpuscular Volume 91.4 fl (80-100); Nucleated Red Blood Cells Absolute Auto 0.000 K/mm3 (0.0-0.012); Nucleated Red Blood Cells Perc 0.0 % (0.0-0.2); Platelet Count Result 353 k/mm3 (150-375); Red Blood Count 3.38 M/mm3 (4.6-6.20); White Blood Count 16.8 K/mm3 (4.5-10.0)
[2025-09-15 06:59] LABS: INR 1.1; Prothrombin Time 14.5 Seconds (11.1-14.7)
[2025-09-15 07:00] LABS: Partial Thromboplastin Time 35.1 Seconds (22.3-36.8)
[2025-09-15 07:31] LABS: Alanine Aminotransferase 57 U/L (6-50); Albumin Level 3.0 g/dL (3.5-5.1); Alkaline Phosphatase 150 U/L (38-126); Anion Gap 6 mmol/L (4-12); Aspartate Amino Transferase 32 U/L (17-59); Bilirubin,Total 0.9 mg/dL (0.2-1.3); Blood Urea Nitrogen 15 mg/dL (9-20); Calcium 7.8 mg/dL (8.4-10.2); Carbon Dioxide 23 mmol/L (22-30); Chloride 104 mmol/L (98-107); Estimated CRCL calculation 96 ml/min; Estimated Glomerular Filt Rate > 60; Glucose 90 mg/dL (65-110); Magnesium 2.5 mg/dL (1.6-2.3); Potassium 3.9 mmol/L (3.4-5.0); Sodium 133 mmol/L (137-145); Total Protein 6.4 g/dL (6.3-8.2)
[2025-09-15 07:37] LABS: Transferrin 146 mg/dL (206-381)
[2025-09-15 07:42] LABS: CRP 17.5 mg/dL (<1.0)
[2025-09-15 07:53] VITALS: BP 152/91; PULSE 87; RESP 18; TEMP 37.2; O2SAT 100
--- NOTE | 2025-09-15 08:30 | P.PNGS_ITS ---
Progress Note: A&P Assessment and Plan (1) Internal hernia: Code(s): K45.8 - Other specified abdominal hernia without obstruction or gangrene Status: Acute Assessment and Plan: abdominal exam completely benign, tolerating regular diet, having loose bowel function (2) Leukocytosis: Code(s): D72.829 - Elevated white blood cell count, unspecified Status: Acute Assessment and Plan: continues to be elevated, will check stool for C diff, LLL pneumonia on CT, UA positive for G- bacilli, continue antibiotics for now, radiology to drain abdominal wall fluid collection today See attending attestation for further plan Subjective Subjective Date/Time Seen: 09/15/25 08:30 Interval history: ISELA. Says he feels much better today, no longer having night sweats. WBC trending down, 16.8 today. Denies significant abdominal pain. Having BMs. Tolerating diet, NPO for drainage of fluid collection. Review of Systems Review of Systems: All systems reviewed & are unremarkable except as noted in HPI and below Exam Const: General: cooperative, comfortable and no acute distress Resp: Other: symmetric expansion, no IWOB, on RA Cardio: Rate: regular rate Rhythm: regular rhythm GI: Inspection: normal to inspection, distended and incision GI Palp: No abdominal tenderness and Yes Soft to palpation Objective Data Vital Signs Vital Signs: Vital Signs - 24 hr 09/14/25 12:00 09/14/25 15:33 09/14/25 20:00 Temperature 97.1 F L 97.5 F L 99.7 F H Pulse Rate 87 90 103 H Respiratory Rate 16 16 18 Blood Pressure 139/80 152/91 H 139/88 Pulse Oximetry 100 100 100 09/14/25 23:55 09/15/25 04:00 09/15/25 07:53 Temperature 98.7 F 98.2 F 98.9 F Pulse Rate 82 88 87 Respiratory Rate 17 17 18 Blood Pressure 128/79 143/81 H 152/91 H Pulse Oximetry 100 100 100 Intake/Output Intake/Output: Intake & Output 09/12/25 09/13/25 09/14/25 09/15/25 23:59 23:59 23:59 23:59 Intake Total 3288.1 2559.9 1460 Balance 3288.1 2559.9 1460 Meds/Results Medications: Active Medications Generic Name Dose Route Start Last Admin Trade Name Freq PRN Reason Stop Dose Admin Acetaminophen 1,000 mg 09/12/25 16:59 09/14/25 21:12 Acetaminophen 500 Mg Tablet PO 1,000 mg Q6H PRN Administration Mild Pain (1-3) or Fever Alprazolam 0.5 mg 09/11/25 08:44 09/15/25 03:03 Alprazolam (*Crx) 0.5 Mg Tablet PO 0.5 mg TID PRN Administration Anxiety Buspirone HCl 5 mg 09/15/25 09:00 Buspirone Hcl 5 Mg Tablet PO TID MANDA Buspirone HCl 2.5 mg 09/15/25 09:00 Buspirone Hcl 2.5 Mg Tablet PO TID MANDA Diazepam 2.5 - 5 mg 09/05/25 23:05 09/13/25 00:06 Diazepam Inj (*Crx) 10 Mg/2 Ml Syringe IV PUSH 09/24/25 23:59 5 mg Q4H PRN Administration Anxiety Enoxaparin Sodium 40 mg 09/15/25 09:00 Enoxaparin 80 Mg/0.8 Ml Syringe SUB-Q DAILY MANDA Famotidine 20 mg 09/12/25 21:00 09/14/25 21:12 Famotidine 20 Mg Tablet PO 20 mg Q12HR MANDA Administration Dextrose 1,000 mls @ 50 mls/hr 09/08/25 13:48 Dextrose 10% IV CONT .Q20H PRN if PN is interrupted Cefepime HCl 2 gm/ Sodium 50 mls @ 100 mls/hr 09/12/25 18:00 09/15/25 02:40 Chloride IVPB 100 mls/hr Q8H MANDA Administration Metronidazole 500 mg in 100 mls @ 100 mls/hr 09/12/25 20:00 09/15/25 05:57 Flagyl 500 Mg/Iso Soln 100 Ml IVPB 100 mls/hr Q8HR MANDA Administration Ketorolac Tromethamine 15 mg 09/11/25 09:00 09/15/25 02:40 Ketorolac 15 Mg/Ml Vial (*Bkc) IV PUSH 15 mg Q6H MANDA Administration Melatonin 5 mg 09/09/25 21:00 09/14/25 21:12 Melatonin 5 Mg Tablet PO 5 mg HS MANDA Administration Morphine Sulfate 2 mg 09/10/25 13:37 09/13/25 01:41 Morphine Sulfate (*Crx) 4 Mg/Ml Inj IV PUSH 2 mg Q4H PRN Administration Pain Rated 7-10 Ondansetron HCl 4 mg 09/04/25 09:10 09/11/25 05:47 Ondansetron Inj 4 Mg/2 Ml Vial IV PUSH 4 mg Q4H PRN Administration Nausea Phenol 1 spray 09/04/25 16:44 Phenol/Sod Pheno [place] (*Bkc) MUCOUS MEM PRN PRN Sore Throat Radiology Results: ITS Impressions Abdomen/Pelvis CT 09/04/25 07:02 IMPRESSION: 1. Dilated small bowel, which may be adynamic ileus or less likely distal small bowel obstruction. Small Bowel X-Ray 09/08/25 14:26 IMPRESSION: 1. Persistent multiple dilated gas-filled loops of small bowel no significant progression of contrast beyond the proximal ileum or 3 hours of imaging consistent with small bowel obstruction versus severe ileus. Abdomen X-Ray 09/12/25 17:09 Impression: 1. Colonic ileus, obstruction considered unlikely but not excluded. Follow-up is suggested to assess resolution. If symptoms persist CT is recommended Chest X-Ray 09/12/25 17:09 Impression: No acute cardiopulmonary abnormality. Venous Doppler Study 09/13/25 17:37 Impression: Negative for DVT. Chest/Abdomen/Pelvis CT 09/14/25 08:38 IMPRESSION: 1. Airspace opacities in basilar left lower lobe, consistent with pneumonia porsha nikolas infarct. 2. Dilated loops of small bowel, consistent with adynamic ileus. 3. 11.1 x 2.0 x 3.4 cm postoperative rim-enhancing fluid collection in the right lower quadrant anteriorly, which may be a seroma or abscess. Chest CTA 09/14/25 08:47 IMPRESSION: 1. No pulmonary embolus. 2. Persistent airspace and groundglass opacities in basilar left lower lobe, consistent with pneumonia. 3. Dilated loops of small bowel, likely adynamic ileus. Labs Labs: Laboratory Results - last 24 hr 09/14/25 09/14/25 09/14/25 11:45 12:35 12:50 WBC RBC Hgb Hct MCV MCH MCHC RDW Plt Count MPV Immature Gran % (Auto) Neut % (Auto) Lymph % (Auto) [place] % (Auto) Eos % (Auto) Baso % (Auto) Lymph # (Auto) [place] # (Auto) Eos # (Auto) Baso # (Auto) Abs Immat Gran (auto) Absolute Neuts (auto) Absolute Nucleated RBC Nucleated RBC % ESR PT INR APTT Sodium Potassium Chloride Carbon Dioxide Anion Gap BUN Creatinine Estim Creat Clear Calc Estimated GFR Glucose POC Capillary Glucose 417 H 151 H Calcium Phosphorus Magnesium Transferrin Total Bilirubin Direct Bilirubin AST ALT Alkaline Phosphatase C-Reactive Protein Total Protein Albumin C. difficile (PCR) Negative 09/14/25 09/15/25 09/15/25 17:01 05:29 06:19 WBC 16.8 H RBC 3.38 L Hgb 10.6 L Hct 30.9 L MCV 91.4 MCH 31.4 MCHC 34.3 RDW 13.2 Plt Count 353 MPV 9.2 Immature Gran % (Auto) 1.8 H Neut % (Auto) 80.1 H Lymph % (Auto) 11.3 L [place] % (Auto) 5.4 Eos % (Auto) 0.9 Baso % (Auto) 0.5 Lymph # (Auto) 1.89 [place] # (Auto) 0.9 H Eos # (Auto) 0.2 Baso # (Auto) 0.1 Abs Immat Gran (auto) 0.31 H Absolute Neuts (auto) 13.4 H Absolute Nucleated RBC 0.000 Nucleated RBC % 0.0 ESR 92 H PT 14.5 INR 1.1 APTT 35.1 Sodium 133 L Potassium 3.9 Chloride 104 Carbon Dioxide 23 Anion Gap 6 BUN 15 Creatinine 0.92 Estim Creat Clear Calc 96 Estimated GFR > 60 Glucose 90 POC Capillary Glucose 108 H 110 H Calcium 7.8 L Phosphorus 3.0 Magnesium 2.5 H Transferrin 146 L Total Bilirubin 0.9 Direct Bilirubin 0.0 AST 32 ALT 57 H Alkaline Phosphatase 150 H C-Reactive Protein 17.5 H Total Protein 6.4 Albumin 3.0 L C. difficile (PCR)
[2025-09-15] MEDS: busPIRone HCL 2.5 MG TABLET PO ×2 (09:20→12:24)
[2025-09-15] MEDS: FAMOTIDINE 20 MG TABLET PO (09:20)
--- NOTE | 2025-09-15 10:40 | P.PNIM_ITS ---
Progress Note: A&P Assessment and Plan (1) Sepsis: Code(s): A41.9 - Sepsis, unspecified organism Status: Acute Assessment and Plan: Treatment of fever as noted (2) Fever: Code(s): R50.9 - Fever, unspecified Status: Acute Assessment and Plan: Treating for sepsis--Tachycardic, blood pressure below prior, possible UTI vs pneumonia vs other Fever 103.1 08/12, now afebrile after starting antibiotics Reporting shortness of breath. Was tachycardic, no chest pain Dysuria now resolved Antibiotics: Cefepime 09/12-present Flagyl 09/12-present Vancomycin 09/12-09/14 Imagin/7 KUB Colonic ileus, obstruction considered unlikely but not excluded 09/12 Chest x-ray clear 09/[address] concerning for pneumonia, infarct, or abdominal infection but final read by radiology pending 09/13 CTA read pending LABS COVID/FLU/RSV negative. UA+, dysuria now resolved. WBC 10<20.7<28 ESR 57, CRP 16.8, procalcitonin 1 d-dimer elevated in the setting of surgery PLAN Treating UTI, Pneumonia, possible abdominal infection, and PE pending CTA read. Has been receiving DVT prophylaxis during admission --Follow WBC --Follow Urine culture, Blood cultures, though were drawn after antibiotics --Follow final CT read, clinical exam overall improved -- Continue Cefepime, Flagyl -- MRSA PCR negative. DC Vancomycin and monitor --Continue theapeutic lovenox until CTA resulted --VS q4 radiology to drain abdominal wall fluid collection-09/15 (3) Small bowel obstruction: Code(s): K56.609 - Unspecified intestinal obstruction, unspecified as to partial versus complete obstruction Status: Acute Assessment and Plan: Robotic assisted bilateral inguinal hernia repair with mesh by Dr. Garrison on 08/28/25. 09/09/2025 patient return to OR NG tube removed 09/12 and eating some of his meal, poor appetite but doesn't like the food. Denies nausea. -Try to avoid narcotics as his could make small-bowel obstruction take longer to resolve --Reports having BM's and passing gas today --Surgery primary service (4) Anxiety about treatment: Code(s): R45.89 - Other symptoms and signs involving emotional state Status: Acute Assessment and Plan: Medications adjusted BusPar a known changed from p.r.n. to t.i.d., as BusPar works best a scheduled m ed Xanax changed from t.i.d. to p.r.n. better controlled today-continue Plan Personally reviewed CT image Subjective Date/time seen: 09/15/25 10:40 Interval history: Reason for hospitalization--Surgery Primary service. Hospitalist Consulted 35 year old male who underwent robotic assisted bilateral inguinal hernia repair with mesh by Dr. Garrison on 08/28/25 presented back to the hospital with small-bowel obstruction on 09/04/2025, taken back to OR on 09/09/2025 for small- bowel obstruction currently on PPN waiting for return bowel function. Surgery following: NGT removed, diet advanced and has been tolerating a diet, having BM's. New fever to 103.1 09/12 CT abd/pelvis showed airspace opacities LLL pneumonia vs infarct, 11.1x2x3.4cm post op rim-enhancing fluid collection in the right lower quadrant anteriorly--seroma vs abscess. CTA was done that showed No PE. Started therapeutic lovenox pending CTA results, no PE so resumed Lovenox for DVT prophylaxis. Still has abdominal distention and mild tenderness. US guided drainage ordered for AM. On Cefepime and Flagyl for pneumonia, abdominal fluid collection Holding Lovenox for DVT prophylax in AM for possible perc drain placement radiology to drain abdominal wall fluid collection today-09/15. anxiety is better checking cdiff Review of Systems Review of Systems: 12 systems were reviewed and are negativ e except for as per HPI. All systems reviewed & are unremarkable except as noted in HPI and below Psychiatric: Psychiatric: Reports anxiety Exam Narrative: General: well appearing, appears stated age. HEENT: normocephalic, atraumatic. Mucous membranes moist. EOMI, PERRLA, bilateral sclera anicteric, no conjunctival injection. Neck supple without JVD, lymphadenopathy, or bruit. Respiratory: clear bilaterally. No rales/rhonic/wheezes. Cardiovascular: Regular rate and rhythm, normal S1-S2. No murmurs, rubs, or clicks. PMI is nondisplaced, capillary refill less than 3 second. Abdomen: distended, soft, generalized tenderness, surgical incision noninfected appearing, well approximated Extremities: No cyanosis, clubbing, or edema present. Pulses are palpable 2/2. Active ROM to all four extremities. Neuro: Alert and orientated x 4. PERRLA. Cranial nerves 2-12 intact without focal deficit. Skin: Warm, dry, and intact, without rash, erythema, or lesion. Psych: pleasant, cooperative, normal speech, normal affect, no hallucinations, no dysarthria Const: General: comfortable HENMT: Other: NG tube present with dark green bile Eyes: General: appearance normal, both eyes and all related structures Neck: Neck: supple Resp: Effort & Inspection: normal respiratory effort Auscultation: clear to auscultation bilaterally Cardio: Rate: regular rate Rhythm: regular rhythm GI: Auscultation: abnormal bowel sounds (hypoactive) Skin: General skin exam: normal color and no rashes or lesions noted Neuro: Speech: normal speech Motor exam (neuro): Normal motor muscle tone present throughout Sensory Exam: normal sensation Extrem: General: normal to inspection and no pedal edema Psych: Mental Status: mental status grossly normal Affect: Anxious affect present Objective Data Vital Signs Vital Signs: Vital Signs - 24 hr 09/14/25 12:00 09/14/25 15:33 09/14/25 20:00 Temperature 97.1 F L 97.5 F L 99.7 F H Pulse Rate 87 90 103 H Respiratory Rate 16 16 18 Blood Pressure 139/80 152/91 H 139/88 Pulse Oximetry 100 100 100 09/14/25 23:55 09/15/25 04:00 09/15/25 07:53 Temperature 98.7 F 98.2 F 98.9 F Pulse Rate 82 88 87 Respiratory Rate 17 17 18 Blood Pressure 128/79 143/81 H 152/91 H Pulse Oximetry 100 100 100 Intake/Output Intake/Output: Intake & Output 09/12/25 09/13/25 09/14/25 09/15/25 23:59 23:59 23:59 23:59 Intake Total 3288.1 2559.9 1460 Balance 3288.1 2559.9 1460 Meds/Results Medications: Active Medications Generic Name Dose Route Start Last Admin Trade Name Freq PRN Reason Stop Dose Admin Acetaminophen 1,000 mg 09/12/25 16:59 09/14/25 21:12 Acetaminophen 500 Mg Tablet PO 1,000 mg Q6H PRN Administration Mild Pain (1-3) or Fever Alprazolam 0.5 mg 09/11/25 08:44 09/15/25 03:03 Alprazolam (*Crx) 0.5 Mg Tablet PO 0.5 mg TID PRN Administration Anxiety Buspirone HCl 5 mg 09/15/25 09:00 09/15/25 09:20 Buspirone Hcl 5 Mg Tablet PO 5 mg TID MANDA Administration Buspirone HCl 2.5 mg 09/15/25 09:00 09/15/25 09:20 Buspirone Hcl 2.5 Mg Tablet PO 2.5 mg TID MANDA Administration Diazepam 2.5 - 5 mg 09/05/25 23:05 09/13/25 00:06 Diazepam Inj (*Crx) 10 Mg/2 Ml Syringe IV PUSH 09/24/25 23:59 5 mg Q4H PRN Administration Anxiety Enoxaparin Sodium 40 mg 09/15/25 09:00 Enoxaparin 80 Mg/0.8 Ml Syringe SUB-Q On Hold: 09/15/25 09:00 DAILY MANDA Famotidine 20 mg 09/12/25 21:00 09/15/25 09:20 Famotidine 20 Mg Tablet PO 20 mg Q12HR MANDA Administration Dextrose 1,000 mls @ 50 mls/hr 09/08/25 13:48 Dextrose 10% IV CONT .Q20H PRN if PN is interrupted Cefepime HCl 2 gm/ Sodium 50 mls @ 100 mls/hr 09/12/25 18:00 09/15/25 02:40 Chloride IVPB 100 mls/hr Q8H MANDA Administration Metronidazole 500 mg in 100 mls @ 100 mls/hr 09/12/25 20:00 09/15/25 05:57 Flagyl 500 Mg/Iso Soln 100 Ml IVPB 100 mls/hr Q8HR MANDA Administration Ketorolac Tromethamine 15 mg 09/11/25 09:00 09/15/25 09:20 Ketorolac 15 Mg/Ml Vial (*Bkc) IV PUSH 15 mg Q6H MANDA Administration Melatonin 5 mg 09/09/25 21:00 09/14/25 21:12 Melatonin 5 Mg Tablet PO 5 mg HS MANDA Administration Morphine Sulfate 2 mg 09/10/25 13:37 09/13/25 01:41 Morphine Sulfate (*Crx) 4 Mg/Ml Inj IV PUSH 2 mg Q4H PRN Administration Pain Rated 7-10 Ondansetron HCl 4 mg 09/04/25 09:10 09/11/25 05:47 Ondansetron Inj 4 Mg/2 Ml Vial IV PUSH 4 mg Q4H PRN Administration Nausea Phenol 1 spray 09/04/25 16:44 Phenol/Sod Pheno [place] (*Bkc) MUCOUS MEM PRN PRN Sore Throat Radiology Results: ITS Impressions Abdomen/Pelvis CT 09/04/25 07:02 IMPRESSION: 1. Dilated small bowel, which may be adynamic ileus or less likely distal small bowel obstruction. Small Bowel X-Ray 09/08/25 14:26 IMPRESSION: 1. Persistent multiple dilated gas-filled loops of small bowel no significant progression of contrast beyond the proximal ileum or 3 hours of imaging consistent with small bowel obstruction versus severe ileus. Abdomen X-Ray 09/12/25 17:09 Impression: 1. Colonic ileus, obstruction considered unlikely but not excluded. Follow-up is suggested to assess resolution. If symptoms persist CT is recommended Chest X-Ray 09/12/25 17:09 Impression: No acute cardiopulmonary abnormality. Venous Doppler Study 09/13/25 17:37 Impression: Negative for DVT. Chest/Abdomen/Pelvis CT 09/14/25 08:38 IMPRESSION: 1. Airspace opacities in basilar left lower lobe, consistent with pneumonia versus infarct. 2. Dilated loops of small bowel, consistent with adynamic ileus. 3. 11.1 x 2.0 x 3.4 cm postoperative rim-enhancing fluid collection in the right lower quadrant anteriorly, which may be a seroma or abscess. Chest CTA 09/14/25 08:47 IMPRESSION: 1. No pulmonary embolus. 2. Persistent airspace and groundglass opacities in basilar left lower lobe, consistent with pneumonia. 3. Dilated loops of small bowel, likely adynamic ileus. Labs Labs: Laboratory Results - last 24 hr 09/14/25 09/14/25 09/14/25 11:45 12:35 12:50 WBC RBC Hgb Hct MCV MCH MCHC RDW Plt Count MPV Immature Gran % (Auto) Neut % (Auto) Lymph % (Auto) [place] % (Auto) Eos % (Auto) Baso % (Auto) Lymph # (Auto) [place] # (Auto) Eos # (Auto) Baso # (Auto) Abs Immat Gran (auto) Absolute Neuts (auto) Absolute Nucleated RBC Nucleated RBC % ESR PT INR APTT Sodium Potassium Chloride Carbon Dioxide Anion Gap BUN Creatinine Estim Creat Clear Calc Estimated GFR Glucose POC Capillary Glucose 417 H 151 H Calcium Phosphorus Magnesium Transferrin Total Bilirubin Direct Bilirubin AST ALT Alkaline Phosphatase C-Reactive Protein Total Protein Albumin C. difficile (PCR) Negative 09/14/25 09/15/25 09/15/25 17:01 05:29 06:19 WBC 16.8 H RBC 3.38 L Hgb 10.6 L Hct 30.9 L MCV 91.4 MCH 31.4 MCHC 34.3 RDW 13.2 Plt Count 353 MPV 9.2 Immature Gran % (Auto) 1.8 H Neut % (Auto) 80.1 H Lymph % (Auto) 11.3 L [place] % (Auto) 5.4 Eos % (Auto) 0.9 Baso % (Auto) 0.5 Lymph # (Auto) 1.89 Dare # (Auto) 0.9 H Eos # (Auto) 0.2 Baso # (Auto) 0.1 Abs Immat Gran (auto) 0.31 H Absolute Neuts (auto) 13.4 H Absolute Nucleated RBC 0.000 Nucleated RBC % 0.0 ESR 92 H PT 14.5 INR 1.1 APTT 35.1 Sodium 133 L Potassium 3.9 Chloride 104 Carbon Dioxide 23 Anion Gap 6 BUN 15 Creatinine 0.92 Estim Creat Clear Calc 96 Estimated GFR > 60 Glucose 90 POC Capillary Glucose 108 H 110 H Calcium 7.8 L Phosphorus 3.0 Magnesium 2.5 H Transferrin 146 L Total Bilirubin 0.9 Direct Bilirubin 0.0 AST 32 ALT 57 H Alkaline Phosphatase 150 H C-Reactive Protein 17.5 H Total Protein 6.4 Albumin 3.0 L C. difficile (PCR) Quality VTE Prophylaxis VTE prophylaxis: mechanical ordered
[2025-09-15 11:53] VITALS: BP 153/95; PULSE 74; RESP 16; TEMP 37; O2SAT 100
[2025-09-15 13:27] LABS: Triglycerides 393 mg/dL (<150)
--- NOTE | 2025-09-15 14:57 | P.DS_ITS ---
DS: Admitting Diagnosis Discharge Date 09/15/25 Admitting Diagnosis Postoperative ileus Acute dehydration History robotic-assisted laparoscopic bilateral inguinal hernia repair DS: Discharge Diagnosis Discharge Diagnosis (1) Small bowel obstruction: Code(s): K56.609 - Unspecified intestinal obstruction, unspecified as to partial versus complete obstruction Status: Acute (2) Internal hernia: Code(s): K45.8 - Other specified abdominal hernia without obstruction or gangrene Status: Acute (3) History of bilateral inguinal hernia repair: Code(s): Z98.890 - Other specified postprocedural states; Z87.19 - Personal history of other diseases of the digestive system Status: Chronic (4) Leukocytosis: Code(s): D72.829 - Elevated white blood cell count, unspecified Status: Acute (5) Sepsis: Code(s): A41.9 - Sepsis, unspecified organism Status: Acute (6) Anxiety about treatment: Code(s): R45.89 - Other symptoms and signs involving emotional state Status: Acute (7) Acute dehydration: Code(s): E86.0 - Dehydration Status: Acute Assessment and Plan: * Resolved DS: Summary Hospital Course Reason for hospitalization: This is a 35-year-old male who underwent robotic assisted bilateral inguinal hernia repair with mesh by Dr. Garrison on 08/28/25. He presented to the ED with diffuse abdominal pain on postop day 3 (08/31/25) and CT at that time showed a possible ileus and a fair amount of stool throughout his colon. He was given Relistor and an enema in the ER. He had some bowel movements and his symptoms improved, so he was discharged home with Bentyl, Miralax BID, and recommendations to minimize narcotics. He returned to the ED a second time on 09/04/25 with nausea, vomiting, bloating, and intermittent diffuse abdominal pain. Workup in the ED revealed acute dehydration and CT evidence of a possible small bowel obstruction (see H&P for details). He was admitted in this setting for treatment and surgical evaluation. Hospital Course: He was initially treated with conservative management with NG tube decompression, bowel rest, and IV fluids for hydration. His NG was accidentally pulled out or fell out overnight and nursing staff had failed attempts. The patient had severe anxiety while in the hospital regarding his treatment and this hopsitalization. Hospitalist was consulted for medical management of his anxiety. After unsuccessful attempts to replace his NG tube, even by the surgeon, GI was consulted for NG tube placement under anesthesia. He had an EGD with NG placement. He was monitored with serial abdominal exams and imaging, and eventually had a water-soluble small bowel follow through done on 09/08/25. This showed no passage of contrast beyond the proximal ileum at 3 hours and the patient did not tolerate the procedure well, which resulted in putting his NG back to suction and aborting the rest of the study. Given his signs of a high- grade SBO despite conservative treatment, the patient was taken back to surgery. He underwent diagnostic laparoscopy, hand assisted laparoscopic repair right lower quadrant internal hernia with reduction of small bowel resulting in small- bowel obstruction, primary repair of internal hernia measuring 5 cm, repair of serosal tears in the small bowel on 09/09/[address] Garrison. He had issues with anxiety and pain control postoperatively, which was treated with anxiolytics and analgesics. He continued to have NG decompression and bowel rest postoperatively, and was started on PPN. Dietitian was consulted. He eventually started to show signs of return of bowel function and serial KUBs were improving, therefore he was started on a clamping trial with clear liquids on postop day 2. He tolerated this and had a BM by postop day 3. His diet was advanced as tolerated. PPN was stopped once he was tolerating an oral diet. He developed a fever on postop day 3. He had a sepsis workup and had findings of a UTI and CT evidence of LLL pneumonia. CTA negative for PE. Venous doppler negative for DVT. CT abdomen/pelvis also showed a 11 x 2 x 3.4 cm postoperative fluid collection in the anterior RLQ. He was treated with broad-spectrum IV antibiotics and his WBC count started improving. Blood cultures from 09/12/25 show NGTD as of today. Urine culture growing gram negative bacilli isolated. His abdominal fluid collection was percutaneously aspirated in Radiology and appeared consistent with a seroma. This fluid was sent for culture, which is still pending on discharge. Dr. Garrison evaluated the patient today after the drainage procedure and feels he is stablle for dischareg today on oral antibiotics. I also spoke with the Hospitalist, who is going to transition him to oral antibiotics and is okay with discharge. He will follow-up with his primary as an outpatient and return for f/u with Dr. Garrison in 2 weeks for recheck. Status at Discharge Functional status at discharge: independent ambulation Overall status at discharge: patient is progressing back to baseline Time Spent with Patient Time attestation: Total time spent providing and/or coordinating discharge services: DS: Data Data Completed and Pending Labs on day of discharge: Labs from last 24 hours 09/15/25 09/15/25 09/14/25 06:19 05:29 17:01 WBC 16.8 H RBC 3.38 L Hgb 10.6 L Hct 30.9 L MCV 91.4 MCH 31.4 MCHC 34.3 RDW 13.2 Plt Count 353 MPV 9.2 Immature Gran % (Auto) 1.8 H Neut % (Auto) 80.1 H Lymph % (Auto) 11.3 L [place] % (Auto) 5.4 Eos % (Auto) 0.9 Baso % (Auto) 0.5 Lymph # (Auto) 1.89 [place] # (Auto) 0.9 H Eos # (Auto) 0.2 Baso # (Auto) 0.1 Abs Immat Gran (auto) 0.31 H Absolute Neuts (auto) 13.4 H Absolute Nucleated RBC 0.000 Nucleated RBC % 0.0 ESR 92 H PT 14.5 INR 1.1 APTT 35.1 Sodium 133 L Potassium 3.9 Chloride 104 Carbon Dioxide 23 Anion Gap 6 BUN 15 Creatinine 0.92 Estim Creat Clear Calc 96 Estimated GFR > 60 Glucose 90 POC Capillary Glucose 110 H 108 H Calcium 7.8 L Phosphorus 3.0 Magnesium 2.5 H Transferrin 146 L Total Bilirubin 0.9 Direct Bilirubin 0.0 AST 32 ALT 57 H Alkaline Phosphatase 150 H C-Reactive Protein 17.5 H Total Protein 6.4 Albumin 3.0 L Triglycerides 393 H C. difficile (PCR) 09/14/25 12:50 WBC RBC Hgb Hct MCV MCH MCHC RDW Plt Count MPV Immature Gran % (Auto) Neut % (Auto) Lymph % (Auto) [place] % (Auto) Eos % (Auto) Baso % (Auto) Lymph # (Auto) [place] # (Auto) Eos # (Auto) Baso # (Auto) Abs Immat Gran (auto) Absolute Neuts (auto) Absolute Nucleated RBC Nucleated RBC % ESR PT INR APTT Sodium Potassium Chloride Carbon Dioxide Anion Gap BUN Creatinine Estim Creat Clear Calc Estimated GFR Glucose POC Capillary Glucose Calcium Phosphorus Magnesium Transferrin Total Bilirubin Direct Bilirubin AST ALT Alkaline Phosphatase C-Reactive Protein Total Protein Albumin Triglycerides C. difficile (PCR) Negative Preliminary micro results at discharge 09/12/25 19:02 Blood Culture - Preliminary Blood 09/12/25 19:09 Blood Culture - Preliminary Blood 09/12/25 20:43 - Preliminary Urine Clean Catch Gram negative bacilli isolated Procedures/Treatments: Procedures Operation Date: 09/05/25 15:00 Actual Procedure Side Surgeon p Esophagogastroduodenoscopy with NG tube placement with rat tooth grasper Mario Ibarra MD Operation Date: 09/09/25 11:00 Actual Procedure Side Surgeon p diagnostic laparoscopy, hand assisted laparoscopic repair right lower quadrant internal hernia with reduction of small bowel resulting in small-bowel obstruction, primary repair of internal hernia measuring 5 cm, repair of serosal tears in the small bowel Not Applicable Gale Garrison MD Imaging Radiologist's impression: ITS Impressions Abdomen/Pelvis CT 09/04/25 07:02 IMPRESSION: 1. Dilated small bowel, which may be adynamic ileus or less likely distal small bowel obstruction. Abdomen X-Ray 09/04/25 10:31 Impression: 1. Small bowel obstruction Abdomen X-Ray 09/05/25 08:28 Impression: 1. Small bowel obstruction Abdomen X-Ray 09/05/25 15:58 Impression: 1. Nasogastric tube in appropriate location Abdomen X-Ray 09/05/25 16:09 IMPRESSION: 1. Redemonstration of the coiled nasogastric tube in the stomach. The nasogastric tube should be removed and replaced. 2. Redemonstration of the dilated bowel loops in the visualized upper abdomen. A small bowel obstruction is suspected. Correlate clinically. If symptoms persist or worsen, consider a short-term follow-up study or additional imaging for further assessment. Abdomen X-Ray 09/05/25 16:11 IMPRESSION: NG tube as described Abdomen X-Ray 09/06/25 11:15 IMPRESSION: 1. No significant change. Dilated small bowel loops persist. Abdomen X-Ray 09/07/25 09:23 IMPRESSION: 1. No significant change. Persistent dilated small bowel loops. Abdomen X-Ray 09/08/25 09:41 IMPRESSION: 1. Multiple dilated small bowel loops similar to the prior study from 09/07/2025. The findings are suggestive of a small bowel obstruction. 2. Probable nasogastric tube projecting over the left upper abdomen which was not fully visualized. Small Bowel X-Ray 09/08/25 14:26 IMPRESSION: 1. Persistent multiple dilated gas-filled loops of small bowel no significant progression of contrast beyond the proximal ileum or 3 hours of imaging consistent with small bowel obstruction versus severe ileus. Abdomen X-Ray 09/11/25 08:18 IMPRESSION: 1. Nasal gastric tube in the stomach. Abdomen X-Ray 09/12/25 17:09 Impression: 1. Colonic ileus, obstruction considered unlikely but not excluded. Follow-up is suggested to assess resolution. If symptoms persist CT is recommended Chest X-Ray 09/12/25 17:09 Impression: No acute cardiopulmonary abnormality. Venous Doppler Study 09/13/25 17:37 Impression: Negative for DVT. Chest/Abdomen/Pelvis CT 09/14/25 08:38 IMPRESSION: 1. Airspace opacities in basilar left lower lobe, consistent with pneumonia versus infarct. 2. Dilated loops of small bowel, consistent with adynamic ileus. 3. 11.1 x 2.0 x 3.4 cm postoperative rim-enhancing fluid collection in the right lower quadrant anteriorly, which may be a seroma or abscess. Chest CTA 09/14/25 08:47 IMPRESSION: 1. No pulmonary embolus. 2. Persistent airspace and groundglass opacities in basilar left lower lobe, consistent with pneumonia. 3. Dilated loops of small bowel, likely adynamic ileus. Drainage Catheter Insertion 09/15/25 12:15 IMPRESSION: 1. Successful ultrasound-guided aspiration medially 9 mL of bubbly clear dark reddish fluid most suggestive of an evolving hematoma/seroma along the anterior wall of the right lower quadrant likely relate to reported recent inguinal hernia repair. Abscess considered unlikely however would correlate with results from the pending Gram stain and cultures. 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 Complete the entire course of antibiotics. * Follow-up with your primary care provider for the pneumonia and UTI. Call to schedule an appointment. * No lifting more than 10 lbs until instructed differently by your surgeon in follow-up * Stairs are okay. Make sure you are walking at least 3 times per day for 10-30 minutes. * Follow-up with Dr. Garrison in 2 weeks in the office. Call to schedule the appointment. [phone] * You may shower over your incision with soap and water * You may take Ibuprofen 600 mg every 6 hours as needed for pain. Would recommend using Tylenol or Ibuprofen for your pain as needed and avoiding the narcotic pain medication if possible. You may also take hydrocodone for moderate to severe pain, which is the narcotic pain medication that was prescribed after surgery. If you still need this, it can be taken as needed as prescribed. Patient Instructions: Antibiotic Form Patient Language: Setswana Stand Alone Forms: General Discharge Information Follow-up/Referrals: Gale Garrison MD [Physician, General Surgery] - 2 Weeks Galo Jang MD [Physician, Family Practice] - 2 Weeks Discharge Medications: New metronidazole 500 mg Tablet 500 mg PO Q8HR Qty: 10 0RF amoxicillin-pot clavulanate 875-125 mg tablet 1 tablet PO Q12H Qty: 7 0RF Rx Instructions: next dose 09/15 7 pm Continued dicyclomine 20 mg tablet 20 mg PO QID Qty: 20 0RF polyethylene glycol 3350 [Miralax] 17 gram/dose powder 17 g PO BID Qty: 119 0RF hydrocodone-acetaminophen 5-325 mg tablet 1 tablet PO Q6H PRN (Reason: pain) Qty: 20 0RF docusate sodium [Colace] 100 mg capsule 100 mg PO BID Qty: 20 0RF ondansetron 4 mg tablet,disintegrating 4 mg PO Q6H PRN (Reason: nausea and vomiting) Qty: 10 0RF Date of admission: 09/04/25 09:11 Primary Care Provider: 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
[2025-09-15 16:00] VITALS: BP 132/84; PULSE 108; RESP 17; TEMP 37.2; O2SAT 99
== END 2025-09-15 16:00 | disposition home or self-care (01) | DRG 230 ==
LOC: ANHED 09:10 → ANH3MEDSUR 10:21
PROVIDERS: Internal Medicine Gastroenterology; Nurse Practitioner Acute Care; Nurse Practitioner Family; Nurse Practitioner Gerontology; Student in an Organized Health Care Education/Training Program; Admitting Provider Surgery; Emergency Provider Family Medicine; Visit Provider Surgery
PROC: 0DJ08ZZ Inspection of Upper Intestinal Tract, Via Natural or Artificial Opening Endoscopic (ICD-10-PCS; principal; 2025-09-05 15:00)
PROC: 0DQ84ZZ Repair Small Intestine, Percutaneous Endoscopic Approach (ICD-10-PCS; CPT 49000; principal; 2025-09-09 11:00)
DX: K91.89 Other postprocedural complications and disorders of digestive system (principal); K45.0 Other specified abdominal hernia with obstruction, without gangrene; N99.71 Accidental puncture and laceration of a genitourinary system organ or structure during a genitourinary system procedure; K91.872 Postprocedural seroma of a digestive system organ or structure following a digestive system procedure; T81.44XA Sepsis following a procedure, initial encounter; J95.89 Other postprocedural complications and disorders of respiratory system, not elsewhere classified; J18.9 Pneumonia, unspecified organism; N99.89 Other postprocedural complications and disorders of genitourinary system; N39.0 Urinary tract infection, site not specified; B96.89 Other specified bacterial agents as the cause of diseases classified elsewhere; E86.0 Dehydration; F41.1 Generalized anxiety disorder; Z87.19 Personal history of other diseases of the digestive system; Z20.822 Contact with and (suspected) exposure to COVID-19
CPT/HCPCS: 36415; 71045; 71260; 71275; 74018; 74177; 74250; 75989; 80048; 80053; 80076; 80202; 81001; 82248; 82948; 83605; 83690; 83735; 84100; 84145; 84466; 84478; 85025; 85027; 85380; 85610; 85652; 85730; 86140; 87040; 87070; 87075; 87086; 87186; 87205; 87493; 87637; 87641; 93005; 93970; 96361; 96374; 96375; 99285; J0690; A9270; C1729; J0330; J0500; J0692; J1100; J1171; J1200; J1650; J1741; J1836; J1885; J2003; J2250; J2270; J2405; J2704; J2765; J3010; J3360; J3373; J3480; J7030; J7040; J7120; Q9967

== ENCOUNTER 2025-09-23 14:31 | Outpatient (CLI) | payer MEDICAID, SELFPAY ==
[2025-09-23 15:15] LABS: Hematocrit 34.1 % (42.0-52.0); Hemoglobin 11.2 g/dL (14.0-18.0); Immature Granulocyte Percent A 1.2 % (0-0.5); Lymphocytes Absolute Auto 4.13 K/mm3 (0.9-3.2); Mean Corpuscular HGB Conc 32.8 g/dl (32-36); Mean Corpuscular Hemoglobin 31.9 pg (26-34); Mean Corpuscular Volume 97.2 fl (80-100); Nucleated Red Blood Cells Absolute Auto 0.000 K/mm3 (0.0-0.012); Nucleated Red Blood Cells Perc 0.0 % (0.0-0.2); Platelet Count Result 671 k/mm3 (150-375); Red Blood Count 3.51 M/mm3 (4.6-6.20); White Blood Count 15.3 K/mm3 (4.5-10.0)
[2025-09-23 15:18] LABS: Add Urine Microscopic? YES; Appearance Urine Clear (Clear); Glucose Urine UA Negative (Negative); Leukocyte Esterase Ur Trace LEU/UL (Negative); Nitrate Urine Negative (Negative); Non Pathogenic Casts 0-2; Specific Grav Ur 1.021 (1.001-1.035)
== END 2025-09-23 14:32 | disposition home or self-care (01) ==
LOC: ANHLAB 14:33
PROVIDERS: Visit Provider Surgery
DX: R30.0 Dysuria (principal)
CPT/HCPCS: 36415; 81001; 85025; 87086